=== PATIENT | female | born 1940 | race Caucasian/White ===

== ENCOUNTER → 2016-09-27 | Outpatient (CLI) | payer MEDICARE, OTHER ==
--- NOTE | 2016-09-27 08:07 | US ---
EXAMINATION TYPE: US abdomen complete DATE OF EXAM: 09/27/2016 COMPARISON: Previous study dated 07/09/2014. CLINICAL HISTORY: Abnormal levels of other serum enzymes R74.8. hx of renal cysts. Hx of GB removal, doesn't remember when. EXAM MEASUREMENTS: Liver Length: 11.2 cm CHD: 0.5 cm Spleen: 8.8 cm Right Kidney: 9.8 x 4.2 x 4.4 cm Left Kidney: 8.9 x 3.7 x 4.5 cm Pancreas: Echogenic. Main pancreatic duct = 2.4 mm. Tail not well seen due to overlying bowel gas. Liver: Heterogenous. Right lobe hypoechoic lesion = 3.8 x 3.7 x 3.2 cm. Gallbladder: Surgically absent Evidence for sonographic Barcenas's sign: neg CHD: wnl Spleen: wnl Right Kidney: Two cystic lesions seen. 1- septated/lateral = 2.7 x 2.3 x 2.8 cm. 2- simple/medial = 3.5 x 3.2 x 2.2 cm Left Kidney: two simple appearing cystic lesions seen. 1- mid/medial = 2.0 x 2.2 x 2.1 cm. 2- mid/up per = 1.3 x 1.5 x 1.8 cm. Upper IVC: wnl Abd Aorta: no AAA seen Pancreas is poorly visualized. The pancreatic duct within normal limits in size. The liver is normal in size but slightly heterogenous. There is an irregular, heterogenous, 3.8 x 3.2 x 3.7 cm lesion in the right lobe of the liver. This was not present on the previous study. The gallbladder is been removed. The distal common hepatic duct measures 5 mm. The spleen is normal in size. There are increasing cystic changes in both kidneys. The cyst however, appear simply cystic. Visualized portions of aorta and IVC are normal. IMPRESSION: 1. Suspicious, 3.8 cm lesion in the right lobe of the liver. This is suspicious for hepatocellular ca rcinoma. Further imaging with CT or MR would BE suggested. 2. Increasing cystic change within both kidneys.
== END ==
LOC: RADUSWWP 06:55
PROVIDERS: ATTEND Family Medicine
DX: N28.1 Cyst of kidney, acquired (principal)
CPT/HCPCS: 76700

== ENCOUNTER → 2016-10-06 | Outpatient (CLI) | payer MEDICARE, OTHER ==
[2016-10-06 15:08] LABS: Blood Urea Nitrogen 12 mg/dL (7-17); Non-African American GFR(MDRD) >60 (>60 ml/min/1.73 sqM)
== END | disposition home or self-care (01) ==
LOC: LABWHC1 14:23
PROVIDERS: ATTEND Physician Assistant Medical
DX: R79.89 Other specified abnormal findings of blood chemistry (principal)
CPT/HCPCS: 36415; 82565; 84520

== ENCOUNTER 2016-10-08 20:10 | Emergency (ER) | payer MEDICARE, OTHER ==
--- NOTE | 2016-10-08 22:08 | ED ---
Abdominal Pain HPI - General Chief Complaint: Abdominal Pain Stated Complaint: Rt side pain Time Seen by Provider: 10/08/16 21:52 Source: patient Mode of arrival: wheelchair Limitations: no limitations - History of Present Illness Initial Comments: This patient is a 76-year-old woman who presents to be evaluate for right upper quadrant pain that has been going on since approximately one or 2 PM yesterday. The patient states the pain initially was intermittent and sharp, though has been constant today. She denies finding any relieving factors other than when she takes her Dexter that she has for other pain. She states that is a little bit worse if she presses on her abdomen certain movements. The patient denies any change in bowel movements or urination states that both of these were normal today. She has not had nausea or vomiting. Patient does note that she had been scheduled to have CAT scan last week for having "abnormal enzymes and fluid around the liver." She states that she had not been having these pains when that issue was found MD Complaint: abdominal pain Onset/Timin -: hour(s) Location: RUQ Migration to: no migration Severity: moderate Quality: cramping, stabbing Consistency: intermittent Improves With: nothing Worsens With: nothing Associated Symptoms: denies other symptoms - Related Data Allergies Allergy/AdvReac Type Severity Reaction Status Date / Time Iodinated Contrast- Oral and Allergy Unknown Verified 10/08/16 20:33 IV Dye Review of Systems ROS Statement: Those systems with pertinent positive or pertinent negative responses have been documented in the HPI. ROS Other: All systems not noted in ROS Statement are negative. Constitutional: Denies: fever, chills Respiratory: Reports: cough (Chronic). Denies: dyspnea Cardiovascular: Denies: chest pain, palpitations, orthopnea, syncope Gastrointestinal: Reports: as per HPI, abdominal pain. Denies: nausea, vomiting , diarrhea, constipation Genitourinary: Denies: dysuria, frequency, hematuria Musculoskeletal: Denies: back pain Skin: Denies: rash Neurological: Denies: headache, weakness, numbness Past Medical History Past Medical History: Cancer Additional Past Medical History / Comment(s): lung History of Any Multi-Drug Resistant Organisms: None Reported Past Surgical History: Back Surgery, Joint Replacement, Orthopedic Surgery Past Psychological History: No Psychological Hx Reported Smoking Status: Former smoker Past Alcohol Use History: Rare Past Drug Use History: None Reported General Exam Limitations: no limitations General appearance: alert, in no apparent distress Head exam: Present: atraumatic, normocephalic Eye exam: Present: normal appearance. Absent: scleral icterus, conjunctival injection Respiratory exam: Present: wheezes (Trace expiratory wheeze). Absent: respiratory distress, rales, rhonchi, stridor, chest wall tenderness Cardiovascular Exam: Present: regular rate, normal rhythm, normal heart sounds. Absent: systolic murmur, diastolic murmur, rubs, gallop GI/Abdominal exam: Present: soft, tenderness (Right upper quadrant, mild tenderness), normal bowel sounds. Absent: distended, guarding, rebound, rigid, mass, pulsatile mass, hernia Extremities exam: Present: normal inspection, normal capillary refill. Absent: pedal edema, calf tenderness Back exam: Present: normal inspection. Absent: CVA tenderness (R), CVA tenderness (L) Neurological exam: Present: alert Skin exam: Present: warm, dry, intact, normal color. Absent: rash Course Vital Signs 10/08/16 10/08/16 10/09/16 20:28 23:03 01:15 Temperature 98.2 F 98.1 F 97.4 F L Pulse Rate 80 75 87 Respiratory 18 18 16 Rate Blood Pressure 160/78 193/83 163/79 O2 Sat by Pulse 93 L 96 95 Oximetry 10/09/16 02:30 Temperature 97.5 F L Pulse Rate 74 Respiratory 15 Rate Blood Pressure 159/65 O2 Sat by Pulse 95 Oximetry Medical Decision Making - Lab Data Result diagrams: 10/08/16 22:05 10/08/16 22:05 Lab Results 10/08/16 10/08/16 10/08/16 Range/Units 22:05 22:05 22:05 WBC 7.1 (3.8-10.6) k/uL RBC 4.35 (3.80-5.40) m/uL Hgb 14.6 (11.4-16.0) gm/dL Hct 43.8 (34.0-46.0) % MCV 100.9 H (80.0-100.0) fL MCH 33.6 (25.0-35.0) pg MCHC 33.4 (31.0-37.0) g/dL RDW 13.9 (11.5-15.5) % Plt Count 171 (150-450) k/uL Neutrophils % 58 % Lymphocytes % 29 % Monocytes % 7 % Eosinophils % 4 % Basophils % 1 % Neutrophils # 4.1 (1.3-7.7) k/uL Lymphocytes # 2.1 (1.0-4.8) k/uL Monocytes # 0.5 (0-1.0) k/uL Eosinophils # 0.3 (0-0.7) k/uL Basophils # 0.0 (0-0.2) k/uL Macrocytosis Slight Sodium 138 (137-145) mmol/L Potassium 4.1 (3.5-5.1) mmol/L Chloride 105 (98-107) mmol/L Carbon Dioxide 23 (22-30) mmol/L Anion Gap 10 mmol/L BUN 17 (7-17) mg/dL Creatinine 0.90 (0.52-1.04) mg/dL Est GFR (MDRD) Af Amer >60 (>60 ml/min/1.73 sqM) Est GFR (MDRD) Non-Af >60 (>60 ml/min/1.73 sqM) Glucose 98 (74-99) mg/dL Calcium 10.7 H (8.4-10.2) mg/dL Total Bilirubin 1.3 (0.2-1.3) mg/dL AST 55 H (14-36) U/L ALT 37 (9-52) U/L Alkaline Phosphatase 314 H (38-126) U/L Total Protein 7.5 (6.3-8.2) g/dL Albumin 3.6 (3.5-5.0) g/dL Amylase 97 (30-110) U/L Lipase 95 (23-300) U/L Urine Color Yellow Urine Appearance Cloudy H (Clear) Urine pH 5.5 (5.0-8.0) Ur Specific [place] 1.016 (1.001-1.035) Urine Protein Negative (Negative) Urine Glucose (UA) Negative (Negative) Urine Ketones Negative (Negative) Urine Blood Negative (Negative) Urine Nitrite Negative (Negative) Urine Bilirubin Negative (Negative) Urine Urobilinogen <2.0 (<2.0) mg/dL Ur Leukocyte Esterase Small H (Negative) Urine RBC 2 (0-5) /hpf Urine WBC 10 H (0-5) /hpf Ur Squamous Epith Cells 6 H (0-4) /hpf Urine Bacteria Rare H (None) /hpf Hyaline Casts 1 (0-2) /lpf Urine Mucus Rare H (None) /hpf Disposition Clinical Impression: Abdominal pain Disposition: HOME SELF-CARE Condition: Fair Instructions: Abdominal Pain (ED) Additional Instructions: As we discussed, follow-up with your physician to have further study of the liver. Return if there is any worsening of the symptoms. Referrals: Eloisa Hinojosa III, MD [Primary Care Provider] - 1-2 days
[2016-10-08 22:32] LABS: Basophils % (A) 1 %; CH 33.8; CHCM 33.7; Eosinophils # (A) 0.3 k/uL (0-0.7); Eosinophils % (A) 4 %; HCT 43.8 % (34.0-46.0); HDW 2.58; HGB 14.6 gm/dL (11.4-16.0); Luc # (Auto) 0.17; Luc % (Auto) 2; Lymphocytes # (A) 2.1 k/uL (1.0-4.8); Lymphocytes % (A) 29 %; MCH 33.6 pg (25.0-35.0); MCHC 33.4 g/dL (31.0-37.0); MCV 100.9 fL (80.0-100.0); Macrocytosis Slight; Mean Platelet Volume 8.3; Monocytes # (A) 0.5 k/uL (0-1.0); Monocytes % (A) 7 %; Neutrophils # (A) 4.1 k/uL (1.3-7.7); Neutrophils % (A) 58 %; RBC 4.35 m/uL (3.80-5.40); RDW 13.9 % (11.5-15.5); WBC 7.1 k/uL (3.8-10.6); WBC (Perox) 6.98
[2016-10-08 22:35] LABS: Appearance,Urine Cloudy (Clear); Bacteria,Urine Rare /hpf; Bilirubin,Urine Negative (Negative); Glucose,Urine (UA) Negative (Negative); Ketones,Urine Negative (Negative); Leukocyte Esterase,Urine Small (Negative); Mucus,Urine Rare /hpf; Nitrite,Urine Negative (Negative); PH, Urine 5.5 (5.0-8.0); Particle Count 4267; Protein,Urine Negative (Negative); RBC,Urine 2 /hpf (0-5); Specific Gravity,Urine 1.016 (1.001-1.035); Squamous Epithelial Cell,Urine 6 /hpf (0-4); UA Billing (MACRO vs. MICRO) MICRO; Urobilinogen,Urine <2.0 mg/dL (<2.0); WBC,Urine 10 /hpf (0-5)
[2016-10-08 22:37] LABS: ALT 37 U/L (9-52); AST 55 U/L (14-36); Alkaline Phosphatase 314 U/L (38-126); Amylase 97 U/L (30-110); Anion Gap 10 mmol/L; Blood Urea Nitrogen 17 mg/dL (7-17); Calcium 10.7 mg/dL (8.4-10.2); Carbon Dioxide 23 mmol/L (22-30); Chloride 105 mmol/L (98-107); Glucose 98 mg/dL (74-99); Non-African American GFR(MDRD) >60 (>60 ml/min/1.73 sqM); Potassium 4.1 mmol/L (3.5-5.1); Sodium 138 mmol/L (137-145); Total Bilirubin 1.3 mg/dL (0.2-1.3); Total Protein 7.5 g/dL (6.3-8.2)
[2016-10-09] MEDS ORDERED: RX INFO: IV CONTRAST WAS GIVEN 1 EACH MISC MISCELLANE PRN (00:17)
[2016-10-09] MEDS ORDERED: FAMOTIDINE 20 MG/2 ML VIAL IV STA (00:18)
[2016-10-09] MEDS ORDERED: diphenhydrAMINE 50 MG/ML 1 ML VIAL IVP STA (00:18)
[2016-10-09] MEDS ORDERED: methylPREDNISolone SOD SUCCI 125 MG/2 ML VIAL IV STA (00:18)
[2016-10-09] MEDS ORDERED: MORPHINE SULFATE 4 MG/ML SYRINGE IV STA (00:28)
--- NOTE | 2016-10-09 02:14 | CT ---
EXAM: CT Abdomen and Pelvis With Intravenous Contrast CLINICAL HISTORY: Reason: Pain, right lower quadrant TECHNIQUE: Axial computed tomography images of the abdomen and pelvis with intravenous contrast. CTDI is mGy and DLP is 703.40 mGy-cm. This CT exam was performed using one or more of the following dose reduction techniques: automated exposure control, adjustment of the mA and/or kV according to patient size, and/or use of iterative reconstruction technique. COMPARISON: 07/13/14 FINDINGS: No evidence for appendicitis. Emphysematous changes lung bases. Suspect postsurgical changes, as on prior on the right. Suspect some increased pleural thickening on the right. Atelectasis superimposed upon chronic lung findings. Suspect cirrhotic morphology to liver. Multiple liver masses suggested. Recommend dedicated liver mass CT and/or MRI follow-up. No splenomegaly though there are varices present. Cholecystectomy. No evidence for acute pancreatitis. Renal cysts. No bowel obstruction. Atherosclerotic changes. Degenerative changes osseous structures and postop changes spine. IMPRESSION: Suspect cirrhotic morphology to liver. Multiple liver masses suggested. Incompletely characterized. Recommend dedicated liver mass CT and/or MRI follow-up. Suspect increased pleural thickening at right lung base. No evidence for appendicitis. Other findings, as above.
[2016-10-09 02:32] VITALS: BP 159/65; PULSE 74; RESP 15; TEMP 97.5
== END 2016-10-09 02:36 | disposition home or self-care (01) ==
LOC: EC 20:10
DX: R10.11 Right upper quadrant pain (principal); Z85.9 Personal history of malignant neoplasm, unspecified; Z87.891 Personal history of nicotine dependence; Z91.041 Radiographic dye allergy status
CPT/HCPCS: 99284; 96374; 96375 ×3; 36415; 80053; 82150; 83690; 85025; 81001; 74177; J2270; J1200; J2930; Q9967

== ENCOUNTER 2016-11-24 11:07 | Day surgery (SDC) | payer MEDICARE, OTHER ==
[2016-11-23 10:34] VITALS: BMI 23.9
[~2016-11-24 11:07] MED LIST: DEXAMETHASONE SOD PHOSPHATE 10 MG/ML 1 ML VIAL IV ONE; HEPARIN SODIUM,PORCINE 5,000 UNIT/ML 1 ML VIAL SQ ONE; HYDROmorphone 1 MG/ML 1 ML SYRINGE IVP PRN; LACTATED RINGERS 1,000 ML IV SCH; MIDAZOLAM 2 MG/2 ML VIAL IV PRN; ONDANSETRON 4 MG/2 ML VIAL IVP ONE; Pre Op ABX Message 1 EACH MISC MISCELLANE ONE
[2016-11-24] MEDS ORDERED: LIDOCAINE 1% 20 ML VIAL (10MG/ML) FOR IV START INTRADERMA ONE (12:39)
--- NOTE | 2016-11-24 12:49 | P.GSHP ---
History of Present Illness H&P Date: 11/24/16 Chief Complaint: History of lung cancer This is a 76-year-old female who presents today for Port-A-Cath insertion. Patient has a history of lung cancer. Past Medical History Past Medical History: Cancer, GERD/Reflux Additional Past Medical History / Comment(s): lung ca, wears O2 at 2l at HS, hx of diverticulosis, History of Any Multi-Drug Resistant Organisms: None Reported Past Surgical History: Back Surgery, Joint Replacement, Orthopedic Surgery Additional Past Surgical History / Comment(s): has had sx on neck and lower back , rt knee replaced, left knee scope, left shoulder sx Past Anesthesia/Blood Transfusion Reactions: No Reported Reaction Past Psychological History: No Psychological Hx Reported Smoking Status: Former smoker Past Alcohol Use History: Rare Additional Past Alcohol Use History / Comment(s): quit smoking in 2014, 1 and 1/ - 2 ppd, started smoking at age 8 Past Drug Use History: None Reported - Past Family History Mother Family Medical History: Cancer Brother(s) Family Medical History: Cancer Additional Family Medical History / Comment(s): x2 Medications and Allergies Home Medications Medication Instructions Recorded Confirmed Type ALPRAZolam [Xanax] 0.5 mg PO Q8HR 11/23/16 11/24/16 History Albuterol Nebulized [Ventolin 2.5 mg INHALATION Q6H PRN 11/23/16 11/24/16 History Nebulized] Cranberry 1 tab PO DAILY 11/23/16 History Fluticasone/Salmeterol [Advair 1 inhalation PO BID 11/23/16 11/24/16 History 250-50 Diskus] Lactulose 10 gm PO BID 11/23/16 11/24/16 History Liver Detoxifier 1 tab PO DAILY 11/23/16 History Meclizine [Antivert] 12.5 mg PO Q8HR PRN 11/23/16 11/24/16 History Ranitidine HCl [Zantac] 150 mg PO BID 11/23/16 11/24/16 History Allergies Allergy/AdvReac Type Severity Reaction Status Date / Time Iodinated Contrast- Oral and Allergy Diarrhea Verified 11/23/16 10:23 IV Dye Surgical - Exam Vital Signs Temp Pulse Resp BP Pulse Ox 97.8 F 97 16 131/73 97 11/24/16 12:11 11/24/16 12:11 11/24/16 12:11 11/24/16 12:11 11/24/16 12:11 - General well developed, well nourished, no distress - Eyes PERRL - ENT normal pinna - Neck no masses - Respiratory normal expansion - Cardiovascular Rhythm: regular - Abdomen Abdomen: soft, non tender Assessment and Plan Plan: History of lung cancer. We'll perform Port-A-Cath insertion
[2016-11-24] MEDS ORDERED: MIDAZOLAM 2 MG/2 ML VIAL ONE (15:08)
[2016-11-24] MEDS ORDERED: fentaNYL (PF) 50 MCG/ML 2 ML AMP ONE (15:08)
[2016-11-24] MEDS ORDERED: PROPOFOL 10 MG/ML 20 ML VIAL IV ONE (15:08)
[2016-11-24] MEDS ORDERED: LIDOCAINE 1% INJ 10MG/ML (20 ML MDV) ONE (15:08)
[2016-11-24] MEDS ORDERED: SODIUM CHLORIDE 0.9% 100 ML with ceFAZolin 2,000 MG IV ONE ×2 (15:08)
[2016-11-24] MEDS ORDERED: HEPARIN SODIUM,PORCINE 100 UNIT/ML 5 ML VIAL IV ONE (15:27)
[2016-11-24] MEDS ORDERED: BUPIVACAINE (PF) 0.25% 30 ML VIAL SQ ONE ×2 (15:27)
--- NOTE | 2016-11-24 15:45 | P.OP ---
Date of Procedure: 11/24/16 Preoperative Diagnosis: Lung cancer Postoperative Diagnosis: Lung cancer Procedure(s) Performed: Insertion of Port-A-Cath Anesthesia: MAC Surgeon: Wagner Mckeon Estimated Blood Loss (ml): 5 Pathology: none sent Condition: stable Disposition: PACU Description of Procedure: PROCEDURE: The patient was placed on the operating table in the supine position. She received MAC anesthetic. The chest was prepped and draped in the usual sterile fashion. The skin underneath the right clavicle was anesthetized with 1% Xylocaine and using Seldinger technique, the right subclavian vein was cannulized. The wire was placed through the needle and positioned under fluoroscopy. Next, the needle was removed and the port site was anesthetized with 1% Xylocaine. Skin was incised with #15 blade and port pocket was made using blunt and sharp dissection. Following this the catheter was attached to the sport and the port was flushed. The port was positioned into the pocket site and was secured with 3-0 Vicryl suture. The catheter was then brought out through the wire site and then the dilator sheath was placed over the wire and the dilator and the wire were removed. The catheter was placed through the sheath and the sheath was removed. The port was flushed with hep-lock solution. Skin was closed with interrupted 3-0 Vicryl sutures. Steri-Strips were applied. The patient tolerated the procedure well. The patient was sent to recovery room for chest x -ray after the procedure.
[2016-11-24 15:53] VITALS: TEMP 98.8
--- NOTE | 2016-11-24 16:19 | XR ---
EXAMINATION TYPE: XR chest 1V DATE OF EXAM: 11/24/2016 COMPARISON: NONE HISTORY: Confirm line placement TECHNIQUE: Single frontal view of the chest is obtained. FINDINGS: Right-sided MediPort is seen terminating in the superior vena cava at its distal aspect. R ight apical lucency suggest underlying emphysematous changes. Cardiac silhouette is upper limits of n ormal size. Mediastinal clips are seen in the right para midline. Partial visualization of cervical f usion device. Reversed left humeral arthroplasty is noted. Blunting of the right costophrenic angle m ay relate to trace pleural effusion or chronic pleural thickening/scarring. Left lung remains clear. Right apical pleural thickening is seen with no discrete pneumothorax. Prior old fracture deformity s een of the lateral mid right rib. IMPRESSION: 1. Right-sided Mediport with its distal tip terminating in the superior vena cava. Right pleural thic kening is seen with no discrete pneumothorax. 2. Trace right pleural effusion versus chronic dural thickening/scarring. 3. No focal consolidation. Bullous emphysematous changes most pronounced in the the right lung.
[2016-11-24 16:23] VITALS: RESP 16
[2016-11-24 16:59] VITALS: BP 144/68; PULSE 86
--- NOTE | 2016-11-27 11:28 | FL ---
EXAMINATION TYPE: FL guided central line placemt DATE OF EXAM: 11/24/2016 CLINICAL HISTORY: Port-A-Cath placement TECHNIQUE: Fluoroscopy. COMPARISON: None. FINDINGS: Fluoroscopic guidance was provided during Port-A-Cath insertion procedure performed by Dr. Mckeon. A total of 4 seconds of fluoroscopic time was utilized during the procedure and 0 spot in traoperative images are acquired or saved to PACS. IMPRESSION: As Above.
== END 2016-11-24 17:07 | disposition home or self-care (01) ==
LOC: OR 11:07
PROVIDERS: ATTEND Surgery
DX: C34.90 Malignant neoplasm of unspecified part of unspecified bronchus or lung (principal); J43.9 Emphysema, unspecified; K21.9 Gastro-esophageal reflux disease without esophagitis; Z87.891 Personal history of nicotine dependence; Z79.899 Other long term (current) drug therapy; Z91.041 Radiographic dye allergy status
CPT/HCPCS: 77001; 71010; 36561; 76937; C1788; J2250; J1644; J1642; J1100; J2405; J2001; J3010; J0690; J2704

== ENCOUNTER 2016-12-12 19:51 | Inpatient (IN) | payer MEDICARE, OTHER ==
[2016-12-12] MEDS ORDERED: SODIUM CHLORIDE 0.9% 500 ML IV STA (20:42)
[2016-12-12] MEDS ORDERED: LIDOCAINE/EPINEPHR/TETRACAINE 5 ML BOTTLE TOPICAL ONE (20:43)
--- NOTE | 2016-12-12 20:47 | ED ---
General Adult HPI - General Chief complaint: Fever Stated complaint: Chemo pt fever/nosebleed Time Seen by Provider: 12/12/16 20:34 Source: patient Mode of arrival: ambulatory Limitations: no limitations - History of Present Illness Initial comments: This 76-year-old white female presents with family with the complaint of weakness and fever. She does have a history of lung cancer and is undergoing chemotherapy. Her last chemotherapy was approximately a week ago. She developed a fever today with a T-max of 100.5. She is felt very weak. She has had intermittent nosebleeds for the past several hours. She states that she picked some dry skin on her right nare and now she cannot seem to get the bleeding to stop. She has been fighting the lung cancer for the past 3 years. She did have surgery on her right long at one point. She denies any shortness of breath or chest pain but has had a slight cough with only clear production. She denies any urinary symptoms. No other complaints or modifying factors. She apparently does have a history of liver disease as well with previous elevated ammonia levels. - Related Data Home Medications Medication Instructions Recorded Confirmed ALPRAZolam [Xanax] 1 mg PO TID PRN 11/23/16 12/12/16 Fluticasone/Salmeterol [Advair 1 puff INHALATION RT-BID 11/23/16 12/12/16 250-50 Diskus] Lactulose 10 gm PO BID 11/23/16 12/12/16 Liver Detoxifier 1 tab PO TID 11/23/16 12/12/16 Meclizine [Antivert] 12.5 mg PO BID 11/23/16 12/12/16 Ranitidine HCl [Zantac] 150 mg PO BID 11/23/16 12/12/16 Budesonide [Pulmicort] 0.5 mg INHALATION RT-BID 12/12/16 12/12/16 Cranberry Fruit Extract [Cranberry] 500 mg PO DAILY 12/12/16 12/12/16 HYDROcodone/APAP 10-325MG [Mosinee 1 tab PO TID PRN 12/12/16 12/12/16 10-325] Ipratropium-Albuterol Nebulize 3 ml INHALATION RT-QID PRN 12/12/16 12/12/16 [Duoneb 0.5 mg-3 mg/3 ml Soln] Ipratropium/Albuterol Sulfate 1 puff INHALATION RT-QID PRN 12/12/16 12/12/16 [Combivent Respimat Inhaler] Loratadine [Claritin] 10 mg PO DAILY 12/12/16 12/12/16 Meclizine [Antivert] 12.5 mg PO DAILY PRN 12/12/16 12/12/16 Prochlorperazine [Compazine] 5 mg PO Q6HR PRN 12/12/16 12/12/16 Allergies Allergy/AdvReac Type Severity Reaction Status Date / Time Iodinated Contrast- Oral and Allergy Anaphylaxis Verified 12/12/16 21:01 IV Dye Review of Systems ROS Statement: Those systems with pertinent positive or pertinent negative responses have been documented in the HPI. ROS Other: All systems not noted in ROS Statement are negative. Past Medical History Past Medical History: Cancer, GERD/Reflux Additional Past Medical History / Comment(s): lung ca, wears O2 at 2l at HS, hx of diverticulosis, History of Any Multi-Drug Resistant Organisms: None Reported Past Surgical History: Back Surgery, Joint Replacement, Orthopedic Surgery Additional Past Surgical History / Comment(s): has had sx on neck and lower back , rt knee replaced, left knee scope, left shoulder sx Past Anesthesia/Blood Transfusion Reactions: No Reported Reaction Past Psychological History: No Psychological Hx Reported Smoking Status: Former smoker Past Alcohol Use History: Rare Past Drug Use History: None Reported - Past Family History Mother Family Medical History: Cancer Brother(s) Family Medical History: Cancer Additional Family Medical History / Comment(s): x2 General Exam - General Exam Comments Initial Comments: GENERAL: The patient is well nourished and well hydrated. VITAL SIGNS: Heart rate, blood pressure, respiratory rate reviewed as recorded in nurse's notes. EYES: Pupils are round and reactive. Extraocular movements are intact. No conjunctival / lid redness or swelling. ENT: No external evidence of injury, swelling, or ecchymosis. Airway is patent. Throat is clear. There is a nose clamp currently in place with no current bleeding. NECK: Nontender. No swelling or evidence of injury. No subcutaneous emphysema. Trachea is midline. No thyroid mass. HEART: Regular rate and rhythm. Good peripheral pulses. LUNGS/CHEST: Breath sounds clear and equal bilaterally. No rales, rhonchi, or wheezes. No ecchymosis, subcutaneous emphysema, or tenderness. ABDOMEN: Abdomen soft without tenderness. No palpable masses or organomegaly. No peritoneal signs. No abdominal wall swelling or ecchymosis. EXTREMITIES: No extremity tenderness. Normal muscle tone and function. No thoracolumbar tenderness. NEUROLOGIC: Sensation is grossly intact. Cranial nerve exam reveals face is symmetrical, tongue is midline, speech is clear. SKIN: No abrasions or ecchymosis is noted. No induration or masses noted. PSYCHIATRIC: Alert and oriented. Appropriate behavior and judgment. Limitations: no limitations Course Vital Signs 12/12/16 12/12/16 12/12/16 20:21 21:42 22:37 Temperature 99.4 F 98.9 F Pulse Rate 111 H 98 109 H Respiratory 18 20 22 Rate Blood Pressure 138/65 144/64 130/58 O2 Sat by Pulse 96 94 L 98 Oximetry Medical Decision Making - Medical Decision Making The patient is seen and examined. All diagnostics are reviewed. The EKG shows a normal sinus rhythm at a rate of 97. There is no acute ST-T wave changes identified. The OK interval is 140, QRS duration is 88, and the QTC intervals 431. The patient's laboratories reviewed. Appears that her platelets are severely low at 4. Her previous platelets on 10/08/2016 were 171. Her hemoglobin was previously 14.6 on 10/08/2016 and now it is 8.0. It is felt that her blood counts her breathing significantly infected by her chemotherapy. Remainder of laboratories also reviewed. The chest x-ray does show 2 areas of infiltrate in the right apical and hilar regions. The case is discussed with Dr. Ricks and he would like the patient placed on cefepime. This is initiated. Her nasal passages are packed LET on cotton balls. These are removed after 10 minutes and there appears to be some mild oozing from her bilateral Kim box plexus. These areas are cauterized with silver nitrate and no further bleeding is noted. It is felt as though she would benefit from admission to the hospital for further treatment of her conditions. She will require platelet transfusion as well. Case is discussed with Dr. Shaver from hematology/oncology and he is agreeable with transfusion of platelets. - Lab Data Result diagrams: 12/12/16 21:28 12/12/16 21:28 Lab Results 12/12/16 12/12/16 12/12/16 Range/Units 21:28 21:28 21:28 WBC 7.9 (3.8-10.6) k/uL RBC 2.35 L (3.80-5.40) m/uL Hgb 8.0 L D (11.4-16.0) gm/dL Hct 24.0 L (34.0-46.0) % MCV 102.1 H (80.0-100.0) fL MCH 34.1 (25.0-35.0) pg MCHC 33.4 (31.0-37.0) g/dL RDW 16.1 H (11.5-15.5) % Plt Count 4 L* D (150-450) k/uL Neutrophils % (Manual) 77 % Band Neutrophils % 14 % Lymphocytes % (Manual) 9 % Nucleated RBCs 0 (0-0) /100 WBC Manual Slide Review Performed Dohle Bodies Present Anisocytosis Slight Anisocytosis (manual) Present Macrocytosis Slight Spherocytes Present PT (9.0-12.0) sec INR (<1.2) APTT (22.0-30.0) sec Sodium 131 L (137-145) mmol/L Potassium 3.6 (3.5-5.1) mmol/L Chloride 104 (98-107) mmol/L Carbon Dioxide 23 (22-30) mmol/L Anion Gap 4 mmol/L BUN 17 (7-17) mg/dL Creatinine 0.61 (0.52-1.04) mg/dL Est GFR (MDRD) Af Amer >60 (>60 ml/min/1.73 sqM) Est GFR (MDRD) Non-Af >60 (>60 ml/min/1.73 sqM) Glucose 104 H (74-99) mg/dL Calcium 8.3 L (8.4-10.2) mg/dL Phosphorus 2.5 (2.5-4.5) mg/dL Magnesium 1.6 (1.6-2.3) mg/dL Total Bilirubin 2.1 H (0.2-1.3) mg/dL AST 46 H (14-36) U/L ALT 41 (9-52) U/L Alkaline Phosphatase 236 H (38-126) U/L Total Creatine Kinase <20 L (30-135) U/L CK-MB (CK-2) 0.4 (0.0-2.4) ng/mL CK-MB (CK-2) Rel Index Troponin I <0.012 (0.000-0.034) ng/mL Total Protein 5.3 L (6.3-8.2) g/dL Albumin 2.3 L (3.5-5.0) g/dL TSH 1.710 (0.465-4.680) mIU/L 12/12/16 Range/Units 21:28 WBC (3.8-10.6) k/uL RBC (3.80-5.40) m/uL Hgb (11.4-16.0) gm/dL Hct (34.0-46.0) % MCV (80.0-100.0) fL MCH (25.0-35.0) pg MCHC (31.0-37.0) g/dL RDW (11.5-15.5) % Plt Count (150-450) k/uL Neutrophils % (Manual) % Band Neutrophils % % Lymphocytes % (Manual) % Nucleated RBCs (0-0) /100 WBC Manual Slide Review Dohle Bodies Anisocytosis Anisocytosis (manual) Macrocytosis Spherocytes PT 12.1 H (9.0-12.0) sec INR 1.2 H (<1.2) APTT 25.9 (22.0-30.0) sec Sodium (137-145) mmol/L Potassium (3.5-5.1) mmol/L Chloride (98-107) mmol/L Carbon Dioxide (22-30) mmol/L Anion Gap mmol/L BUN (7-17) mg/dL Creatinine (0.52-1.04) mg/dL Est GFR (MDRD) Af Amer (>60 ml/min/1.73 sqM) Est GFR (MDRD) Non-Af (>60 ml/min/1.73 sqM) Glucose (74-99) mg/dL Calcium (8.4-10.2) mg/dL Phosphorus (2.5-4.5) mg/dL Magnesium (1.6-2.3) mg/dL Total Bilirubin (0.2-1.3) mg/dL AST (14-36) U/L ALT (9-52) U/L Alkaline Phosphatase (38-126) U/L Total Creatine Kinase (30-135) U/L CK-MB (CK-2) (0.0-2.4) ng/mL CK-MB (CK-2) Rel Index Troponin I (0.000-0.034) ng/mL Total Protein (6.3-8.2) g/dL Albumin (3.5-5.0) g/dL TSH (0.465-4.680) mIU/L Disposition Clinical Impression: Weakness, Lung cancer, Fever, Sinus tachycardia, Thrombocytopenia, Anemia, Pneumonia, Anterior epistaxis Disposition: ADMITTED IP TO THIS [facility] Condition: Fair Time of Disposition: 22:47 Decision Date: 12/12/16 Decision Time: 22:48
[2016-12-12] MEDS ORDERED: PROCHLORPERAZINE 5 MG TAB PO STA (21:26)
[2016-12-12] MEDS ORDERED: ONDANSETRON 4 MG/2 ML VIAL IVP STA (21:26)
[2016-12-12] MEDS: SODIUM CHLORIDE 0.9% 1,000 ML IV STA (21:30)
[2016-12-12] MEDS ORDERED: LACTULOSE 20 GM/30 ML CUP PO ONE (21:30)
[2016-12-12] MEDS ORDERED: SILVER NITRATE APPLICATOR 1 EACH STICK..EA. TOPICAL STA (21:35)
[2016-12-12 21:52] LABS: Anisocytosis Slight; CH 32.6; CHCM 32.1; MCH 34.1 pg (25.0-35.0); MCHC 33.4 g/dL (31.0-37.0); MCV 102.1 fL (80.0-100.0); Macrocytosis Slight; Mean Platelet Volume 10.6; RBC 2.35 m/uL (3.80-5.40); RDW 16.1 % (11.5-15.5); WBC 7.9 k/uL (3.8-10.6); WBC (Perox) 8.03
[2016-12-12 21:54] LABS: ALT 41 U/L (9-52); AST 46 U/L (14-36); Alkaline Phosphatase 236 U/L (38-126); Anion Gap 4 mmol/L; Blood Urea Nitrogen 17 mg/dL (7-17); Calcium 8.3 mg/dL (8.4-10.2); Carbon Dioxide 23 mmol/L (22-30); Chloride 104 mmol/L (98-107); Glucose 104 mg/dL (74-99); Magnesium 1.6 mg/dL (1.6-2.3); Non-African American GFR(MDRD) >60 (>60 ml/min/1.73 sqM); Phosphorus 2.5 mg/dL (2.5-4.5); Potassium 3.6 mmol/L (3.5-5.1); Sodium 131 mmol/L (137-145); Total Bilirubin 2.1 mg/dL (0.2-1.3); Total Protein 5.3 g/dL (6.3-8.2)
[2016-12-12 21:56] LABS: INR 1.2 (<1.2); Partial Thromboplastin Time 25.9 sec (22.0-30.0); Prothrombin Time 12.1 sec (9.0-12.0)
[2016-12-12 22:04] LABS: Creatine Kinase <20 U/L (30-135)
--- NOTE | 2016-12-12 22:05 | XR ---
EXAMINATION TYPE: XR chest 2V DATE OF EXAM: 12/12/2016 COMPARISON: Chest x-ray November 24, 2016 HISTORY: Weakness and fever TECHNIQUE: Frontal and lateral views of the chest are obtained. FINDINGS: There is redemonstration of surgical hardware left shoulder level. There is anterior fusio n plate in the cervical spine is redemonstrated. There is redemonstration of right subclavian Medipor t catheter. There is persistent cardiomegaly with ectatic thoracic aorta. Right suprahilar surgical c lips are redemonstrated. There is chronic parenchymal change with increasing right upper and hilar op acities. There is suspected stable small right pleural effusion. No pneumothorax is seen bilaterally. IMPRESSION: Chronic parenchymal changes and cardiomegaly with small right pleural effusion all redem onstrated. There is suspected developing right apical and hilar infiltrates.
[2016-12-12] MEDS ORDERED: CEFEPIME 1 GM in SODIUM CHLORIDE 0.9% 50 ML IVPB STA (22:09)
[2016-12-12 22:10] LABS: Add Differential Manual Differential
[2016-12-12 22:16] LABS: Creatine Kinase MB 0.4 ng/mL (0.0-2.4); Troponin I <0.012 ng/mL (0.000-0.034)
[2016-12-12 22:17] LABS: Band Neutrophils % 14 %; Dohle Bodies Present; Manual Review Performed; Nucleated Red Blood Cells 0 /100 WBC (0-0); Total Cells Counted 100
[2016-12-12 22:18] LABS: Spherocytes Present
[2016-12-12] MEDS ORDERED: PNEUMONIA PROTOCOL UTILIZED 1 EACH MISC PO PRN (22:49)
[2016-12-12] MEDS ORDERED: MECLIZINE 12.5 MG TAB PO PRN (22:52)
[2016-12-12] MEDS ORDERED: PROCHLORPERAZINE 5 MG TAB PO PRN (22:52)
[2016-12-12] MEDS ORDERED: IPRATROPIUM-ALBUTEROL 3 ML NEB INHALATION PRN (22:52)
[2016-12-12] MEDS ORDERED: ONDANSETRON 4 MG/2 ML VIAL IVP PRN (22:53)
[2016-12-12] MEDS: HYDROcodone/APAP 10-325MG 1 EACH TAB PO PRN (23:08)
[2016-12-13 04:45] VITALS: BMI 23.6
[2016-12-13] MEDS ORDERED: BUDESONIDE 0.5 MG/2 ML NEBU INHALATION SCH (08:00)
[2016-12-13] MEDS: CEFEPIME 1 GM in SODIUM CHLORIDE 0.9% 50 ML IVPB SCH ×2 (08:22→20:08)
[2016-12-13] MEDS: FAMOTIDINE 20 MG TAB PO SCH ×2 (08:22→20:08)
[2016-12-13] MEDS: LACTULOSE 20 GM/30 ML CUP PO SCH ×2 (08:23→20:57)
[2016-12-13] MEDS: LORATADINE 10 MG TAB PO SCH (08:24)
[2016-12-13] MEDS: MECLIZINE 12.5 MG TAB PO SCH ×2 (08:24→20:08)
[2016-12-13] MEDS: HYDROcodone/APAP 10-325MG 1 EACH TAB PO PRN ×3 (08:24→20:08)
[2016-12-13] MEDS: SODIUM CHLORIDE 0.9% 1,000 ML IV STA (08:31)
[2016-12-13] MEDS: IPRATROPIUM-ALBUTEROL 3 ML NEB INHALATION SCH ×4 (08:50→19:42)
[2016-12-13] MEDS ORDERED: [UNRECOGNIZED DRUG - OTHER] PO SCH (09:00)
[2016-12-13] MEDS ORDERED: NON-FORMULARY DRUG (Cranberry Fruit Extract [Cranberry] 500 MG) PO SCH (09:00)
[2016-12-13 12:27] LABS: Appearance,Urine Clear (Clear); Bacteria,Urine Rare /hpf; Bilirubin,Urine Negative (Negative); Glucose,Urine (UA) Negative (Negative); Ketones,Urine Negative (Negative); Leukocyte Esterase,Urine Negative (Negative); Nitrite,Urine Negative (Negative); PH, Urine 6.5 (5.0-8.0); Particle Count 3953; Protein,Urine Trace (Negative); RBC,Urine 6 /hpf (0-5); Squamous Epithelial Cell,Urine 2 /hpf (0-4); UA Billing (MACRO vs. MICRO) MICRO; Urobilinogen,Urine <2.0 mg/dL (<2.0); WBC,Urine 1 /hpf (0-5)
[2016-12-13] MEDS ORDERED: TEMAZEPAM 15 MG CAP PO PRN (16:57)
[2016-12-13] MEDS ORDERED: HYDROmorphone 0.5 MG/0.5 ML SYRINGE IVP PRN (16:57)
--- NOTE | 2016-12-13 17:23 | P.CONS ---
History of Present Illness - Reason for Consult Consult date: 12/13/16 - History of Present Illness Ms Jenkins is a pleasant WF, who apparently had a routine ( ? screening) imaging study of the chest ( ? Xray /CT) in 07/23, that showed an opacity in the rt lower lobe. This led to a CT scan on 11/04/13, which revealed a 1.6 cm nodule in the superior aspect of the rt lower lobe. Severe emphysema was noted bilaterally. She had a CT scan on 11/15/13, which showed marked uptake with SUV of 16.7 in the RLL mass, as well as a focus in the rt hilar region ( SUV 7.9). The pt was thus referred here for further evaluation and recommendations. She was referred to Dr MITCHELL Anaya ( Pulmonary) and Dr Reese ( CTS). She was felt to be a surgical candidate. She had a stress test and ECHO in the 3rd week of , and surgery 01/12/14. 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 ( T1a , N0) She tolerated surgery well. based on guidelines, adjuvnt chemo was not recommended for her stage. She was seen in the office in 02/22, and continued f/ u with Dr Anaya thereafter. The patient was seen in consultation at [facility] on 2016. Over the last 6-7 weeks, prior to admission, she had been complaining of increasing pain in the right upper abdomen, as well as a right mid back. In addition the family had noted a change in appetite, progressive weakness, as well as periods of confusion. Labs done by her PCP on 09/14/16 showed the elevation of AST at 66 and alkaline phosphatase at 306. Total bilirubin was 1.4. CBC was normal. Ultrasound on 09/27/16 showed slightly heterogenous appearance of the liver with a 3.83.23.7 cm lesion in the right lobe that appeared to be new. This was compared to a prior study from 06/24. She had a CT of the abdomen and pelvis with contrast on 10/09/16, that was suggestive of cirrhotic appearance of the liver with suggestion of multiple liver masses. Study was felt to be incomplete for the liver and dedicated liver CT was suggested. A CT of the liver with 3 phase protocol was done on 10/12/16. This confirmed a number of hypervascular liver lesions, bilaterally. The most prominent was a confluent mass measuring 6.95.65.8 cm with some internal necrotic changes in the right lobe. There was evidence of underlying portal venous hypertension. By this time, the patients pain had increased significantly. She was therefore sent in to the emergency room, and admitted for further management. On evaluation in the hospital, computed tomography scan of the chest was ordered. This showed a new large right infrahilar mass partially encasing the bronchus intermedius and proximal segmental right lower lobe bronchi. This measured 6.254.8 cm. There was also enlargement of the subcarinal node at 1.9 cm and borderline 9 mm superior mediastinal node. Liver lesions were again noted. Computed tomography scan of the brain was negative. Ct in 01/25 had not shown any evidence of recurrence. The patient was somewhat confused in the hospital, but improved with the lactulose (ammonia level was somewhat elevated), and hydration. She had a liver biopsy on 10/13/16 and was subsequently discharged. She was seen back in the office on 10/28/16. Liver biopsy showed a proliferation of bile ducts with acute and chronic inflammation, and formation of residual nodules of hepatic parenchyma. No obvious malignancy was seen. This was felt to be non diagnostic, and a repeat biopsy on the lung was done bronchoscopically by Dr Anaya on 10/23/16. Cytology was negative, but biopsy was positive for squamous cell carcinoma.Her MRI of the liver showed mass like changes but was not definitive for maligancy. She was started on Carbo/Gemzar. Cycle 1 D1 She was then admitted to [facility] for MS changes due to dehydration and possible pneumonia after cycle 1 D1. She improved with hydation and antibiotics, and was discharged. She omitted D8 , and started cycle, completing that on 12/07/16. She did receive Neulasta. she presented to the ER this time, as she has started to bleed from the left nostril, and this was not stopping despite local pressure. In addition she was feeling very weak and felt as if she was about to fall. Over the last 1 -2 days, oral intake had been reduced. In the emergency room platelets were noted to be only 4000. Chest x-ray showed possibility of opacities in the right upper and lower lobes suspiciousfor pneumonia. She was then admitted for further management. Review of Systems Constitutional: Reports fatigue, Reports poor appetite, Reports weakness Eyes: denies blurred vision, denies pain Ears: deny: decreased hearing, ear discharge, earache, tinnitus Ears, nose, mouth and throat: Reports epistaxis Cardiovascular: Reports dyspnea on exertion Respiratory: Reports cough Gastrointestinal: Reports as per HPI, Reports diarrhea (stools are generally loose, due to chronic lactulose use. Also positive for episode of hepatic encephalopathy, controlled with lactulose) Genitourinary: Denies dysuria, Denies hematuria Menstruation: Reports postmenopausal Musculoskeletal: Reports muscle weakness Integumentary: Denies pruritus, Denies rash Neurological: Reports confusion (episodic, associated with hepatic encephalopathy. Usually improves with lactulose), Reports weakness Psychiatric: Reports confusion Endocrine: Reports fatigue, Denies weight change Hematologic/Lymphatic: Reports as per HPI Past Medical History Past Medical History: Cancer, GERD/Reflux Additional Past Medical History / Comment(s): lung ca, wears O2 at 2l at HS, hx of diverticulosis History of Any Multi-Drug Resistant Organisms: None Reported Past Surgical History: Back Surgery, Joint Replacement, Orthopedic Surgery Additional Past Surgical History / Comment(s): has had sx on neck and lower back , rt knee replaced, left knee scope, left shoulder sx Past Anesthesia/Blood Transfusion Reactions: No Reported Reaction Past Psychological History: No Psychological Hx Reported Smoking Status: Former smoker Past Alcohol Use History: Rare Additional Past Alcohol Use History / Comment(s): quit smoking in 2014, 1 and 1/ 2- 2 ppd, started smoking at age 8 Past Drug Use History: None Reported - Past Family History Mother Family Medical History: Cancer Brother(s) Family Medical History: Cancer Additional Family Medical History / Comment(s): x2 Medications and Allergies Home Medications Medication Instructions Recorded Confirmed Type ALPRAZolam [Xanax] 1 mg PO TID PRN 11/23/16 12/12/16 History Fluticasone/Salmeterol [Advair 1 puff INHALATION RT-BID 11/23/16 12/12/16 History 250-50 Diskus] Lactulose 10 gm PO BID 11/23/16 12/12/16 History Liver Detoxifier 1 tab PO TID 11/23/16 12/12/16 History Meclizine [Antivert] 12.5 mg PO BID 11/23/16 12/12/16 History Ranitidine HCl [Zantac] 150 mg PO BID 11/23/16 12/12/16 History Budesonide [Pulmicort] 0.5 mg INHALATION RT-BID 12/12/16 12/12/16 History Cranberry Fruit Extract [Cranberry] 500 mg PO DAILY 12/12/16 12/12/16 History HYDROcodone/APAP 10-325MG [[place] 1 tab PO TID PRN 12/12/16 12/12/16 History 10-325] Ipratropium-Albuterol Nebulize 3 ml INHALATION RT-QID PRN 12/12/16 12/12/16 History [Duoneb 0.5 mg-3 mg/3 ml Soln] Ipratropium/Albuterol Sulfate 1 puff INHALATION RT-QID PRN 12/12/16 12/12/16 History [Combivent Respimat Inhaler] Loratadine [Claritin] 10 mg PO DAILY 12/12/16 12/12/16 History Meclizine [Antivert] 12.5 mg PO DAILY PRN 12/12/16 12/12/16 History Prochlorperazine [Compazine] 5 mg PO Q6HR PRN 12/12/16 12/12/16 History Allergies Allergy/AdvReac Type Severity Reaction Status Date / Time Iodinated Contrast- Oral and Allergy Anaphylaxis Verified 12/12/16 21:01 IV Dye Physical Exam Vitals: Vital Signs Temp Pulse Pulse Resp BP BP Pulse Ox 12/13/16 16:34 98.4 F 101 H 16 116/58 12/13/16 16:22 92 12/13/16 16:10 90 12/13/16 16:04 97.9 F 97 16 134/60 12/13/16 15:54 97.6 F 100 16 122/58 96 12/13/16 15:00 97.9 F 96 16 125/59 96 12/13/16 13:00 98 12/13/16 12:46 94 16 12/13/16 09:12 100 12/13/16 08:50 114 H 16 12/13/16 08:00 97.8 F 99 16 105/53 98 12/13/16 00:46 98.1 F 103 H 16 142/63 98 12/12/16 23:41 97.9 F 114 H 24 128/59 96 12/12/16 23:00 108 H 22 126/62 96 12/12/16 22:37 98.9 F 109 H 22 130/58 98 12/12/16 21:42 98 20 144/64 94 L 12/12/16 20:21 99.4 F 111 H 18 138/65 96 Intake and Output 12/13/16 12/13/16 12/13/16 06:59 14:59 22:59 Intake Total 0 Balance 0 Intake: Blood Product 0 Platelet Pheresis Acda 0 Unit [id number] Other: Voiding Method Toilet Toilet # Voids 3 # Bowel Movements 2 Weight 58.513 kg - Constitutional General appearance: no acute distress - EENT Eyes: EOMI, PERRLA ENT: hearing grossly normal, normal oropharynx - Neck Neck: no lymphadenopathy Thyroid: bilateral: normal size - Respiratory Respiratory: bilateral: CTA - Cardiovascular Rhythm: regular Heart sounds: normal: S1, S2 - Gastrointestinal General gastrointestinal: normal bowel sounds, soft - Integumentary Integumentary: normal - Neurologic Neurologic: CNII-XII intact - Musculoskeletal Musculoskeletal: generalized weakness, strength equal bilaterally - Psychiatric Psychiatric: A&O x's 3, appropriate affect Results CBC & Chem 7: 12/12/16 21:28 12/12/16 21:28 Labs: Abnormal Lab Results - Last 24 Hours (Table) 12/12/16 12/12/16 12/12/16 Range/Units 21:28 21:28 21:28 RBC 2.35 L (3.80-5.40) m/uL Hgb 8.0 L D (11.4-16.0) gm/dL Hct 24.0 L (34.0-46.0) % MCV 102.1 H (80.0-100.0) fL RDW 16.1 H (11.5-15.5) % Plt Count 4 L* D (150-450) k/uL PT (9.0-12.0) sec INR (<1.2) Sodium 131 L (137-145) mmol/L Glucose 104 H (74-99) mg/dL Calcium 8.3 L (8.4-10.2) mg/dL Total Bilirubin 2.1 H (0.2-1.3) mg/dL AST 46 H (14-36) U/L Alkaline Phosphatase 236 H (38-126) U/L Total Creatine Kinase <20 L (30-135) U/L Total Protein 5.3 L (6.3-8.2) g/dL Albumin 2.3 L (3.5-5.0) g/dL Urine Protein (Negative) Urine Blood (Negative) Urine RBC (0-5) /hpf Urine Bacteria (None) /hpf 12/12/16 12/13/16 Range/Units 21:28 11:15 RBC (3.80-5.40) m/uL Hgb (11.4-16.0) gm/dL Hct (34.0-46.0) % MCV (80.0-100.0) fL RDW (11.5-15.5) % Plt Count (150-450) k/uL PT 12.1 H (9.0-12.0) sec INR 1.2 H (<1.2) Sodium (137-145) mmol/L Glucose (74-99) mg/dL Calcium (8.4-10.2) mg/dL Total Bilirubin (0.2-1.3) mg/dL AST (14-36) U/L Alkaline Phosphatase (38-126) U/L Total Creatine Kinase (30-135) U/L Total Protein (6.3-8.2) g/dL Albumin (3.5-5.0) g/dL Urine Protein Trace H (Negative) Urine Blood Moderate H (Negative) Urine RBC 6 H (0-5) /hpf Urine Bacteria Rare H (None) /hpf Chest x-ray: report reviewed Assessment and Plan (1) Bicytopenia Narrative/Plan: this is due to chemotherapy effect. Thrombocytopenia is especially severe, and needs supplementation. Unit of platelets have been ordered. Hemoglobin is in a safe range. Continue to monitor and supplement if needed. White counts have already recovered. Status: Acute (2) Anterior epistaxis Narrative/Plan: Related to the very low platelet counts. This has resolved with local treatment. Patient is additionally getting a unit of platelets. Status: Acute (3) Pneumonia Narrative/Plan: the patient does have generalized weakness, but denies any fever, or significant cough. The chest x-ray however does note some new infiltrates. It is therefore reasonable to treat her with antibiotics for possible pneumonia at this time. she is currently on cefepime. White count is normal. Therefore if the patient continues to progress well, can be changed to oral antibiotics in the next 1-2 days Status: Acute (4) Lung cancer Narrative/Plan: The patient has known squamous cell cancer of the lung, with diagnostic and therapeutic circumstances as noted in the HPI. It is not known, if the current lung mass represents a new primary, order the recurrence of her previous disease. The radiologic appearance of the liver was highly suggestive of metastatic disease. However initial biopsy was negative for malignancy. The patient was supposed to have a repeat biopsy done about 2 weeks ago, but subsequently refused that after discussion with her family. Therefore, at this time, the plan is to continue treatment with her current chemotherapy regimen once her acute problem resolves Status: Acute
[2016-12-13] MEDS: methylPREDNISolone SOD SUCCI 125 MG/2 ML VIAL IV SCH ×2 (17:46→23:59)
[2016-12-13] MEDS: INSULIN LISPRO (humaLOG) 300 UNIT/3 ML VIAL SQ SCH ×2 (17:47→20:14)
--- NOTE | 2016-12-13 19:34 | HP ---
HISTORY AND PHYSICAL DATE OF SERVICE: 12/13/2016 CHIEF COMPLAINT: Fever and epistaxis. HISTORY OF PRESENT ILLNESS: This 76-year-old woman with a past medical history of GERD, history of lung cancer, history of chronic hypoxic respiratory failure being followed by Dr. Hinojosa in the outpatient setting, was receiving chemotherapy for lung cancer. The patient also had complaints of cough and fever 100.5. The patient also had intermittent which is increasing at this time. The patient came to [facility] and platelets found to be 4 and the patient was planned to give platelet transfusion. Patient also had significant COPD using oxygen at home as well. The patient is using oxygen currently through the mouth. There is no history of headache, loss of consciousness or seizures. No chest pain or palpitations at this time. PAST MEDICAL HISTORY: COPD, GERD, history of lung cancer. MEDICATIONS: Prior to admission include home medication: 1. Zantac 150 mg p.o. b.i.d. 2. Compazine 5 mg q.6h p.r.n. 3. Antivert 12.5 daily p.r.n. and 12.5 mg b.i.d. 4. Claritin 10 mg daily. 6. Lactose 10 mg p.o. b.i.d. 7. Combivent q.i.d. p.r.n. 8. DuoNeb q.i.d. p.r.n. 9. [place] 1 tab p.o. t.i.d. p.r.n. 10.Advair 250/50 1 puff b.i.d. 11.Cranberry 500 mg. 12.Pulmicort 0.5 b.i.d. 13.Xanax 1 mg t.i.d. p.r.n. ALLERGIES: IODINATED CONTRAST DYE. FAMILY HISTORY: History of cancer in the family. SOCIAL HISTORY: Previous history of smoking. No history of alcohol intake. REVIEW OF SYSTEMS: ENT: No diminished vision, no diminished hearing. Cardiovascular: No angina. Respiratory: As mentioned earlier. GI: No nausea or vomiting. : No dysuria. Central nervous system: No numbness or weakness. Allergy/Immunology: No asthma or hayfever. Musculoskeletal: As mentioned earlier. HEMATOLOGY/ONCOLOGY: No history of anemia. Endocrine: No history of diabetes or hypothyroidism. Constitutional: As mentioned earlier. Dermatology: Negative. Rheumatology: Negative. Psychiatric: As mentioned earlier. PHYSICAL EXAMINATION: Alert and oriented times three. Pulse 97, blood pressure 130/60, respirations 16, temperature 97.9, pulse ox is 97% on room air. HEENT: Conjunctivae normal. Oral mucosa moist. Neck is no jugular venous distention. No carotid bruit. No lymph node enlargement. Breathing efforts are markedly increased. Bilateral scattered rhonchi and crackles. No residual effects of the chest. ABDOMEN: Soft, nontender. No mass palpable. Legs no edema, no swelling. NERVOUS SYSTEM: Higher functions as mentioned earlier. Moves all four limbs. No focal deficits. Lymphatics: No lymph nodes palpable in the neck, axillae or groin. Skin: No ulcer, rash or bleeding. LABORATORY DATA: WBC 7.2, hemoglobin is 8, platelets of 4, INR is 1.2 and calcium is 8.3, total bili is 2.1, alkaline phosphatase 236, albumin is 2.3. Chest x-ray right apical and hilar infiltrate. ASSESSMENT: 1. Chronic obstructive pulmonary disease acute exacerbation with possible acute purulent tracheobronchitis. Possible acute right apical and hilar infiltrates and pneumonia with gram-negative. 2. Severe thrombocytopenia. 3. History of epistaxis secondary to thrombocytopenia. 4. History of lung cancer status post chemotherapy. 5. History of gastroesophageal reflux disease. 6. Chronic hypoxic respiratory failure. 7. Degenerative joint disease. 8. Anemia multifactorial macrocytic multifactorial secondary to malignancy. 9. Elevated total bilirubin. PLAN/DISCUSSION: In this 76-year-old woman who presented with multiple complex medical issues, we will monitor the patient closely. Continue the current management. Continue symptomatic treatment. The patient is already started on Abilify and plan to continue the medication. Obtain blood culture. Optimize bronchodilators. I would also recommend a course of steroids also. Otherwise continue to monitor and Dr. Schaefer will be consulted and Dr. Shaver will be consulted. Prognosis guarded. Discussed with the patient , understands and agrees. A copy being forwarded to Dr. Hinojosa, who is the primary care physician. TERRY / ANETTE: [id number] / MTDNusrat
[2016-12-13] MEDS: BUDESONIDE 1 MG/2 ML NEBU INHALATION SCH (19:42)
[2016-12-13] MEDS: FORMOTEROL FUMARATE 20 MCG/2 ML NEBU INHALATION SCH (19:42)
[2016-12-13] MEDS: FLUCONAZOLE 100 MG TAB PO SCH (20:08)
[2016-12-13 20:09] LABS: Glucose,Whole Blood 171 mg/dL (75-99)
[2016-12-13] MEDS: ALPRAZolam 0.5 MG TAB PO PRN (23:45)
[2016-12-14] MEDS: methylPREDNISolone SOD SUCCI 125 MG/2 ML VIAL IV SCH ×4 (05:51→23:27)
[2016-12-14 07:03] LABS: Anisocytosis Slight; Basophils % (A) 0 %; CH 31.9; CHCM 30.7; Eosinophils % (A) 0 %; HCT 21.7 % (34.0-46.0); HDW 2.91; Hypochromasia Moderate; Luc # (Auto) 0.06; Luc % (Auto) 1; Lymphocytes # (A) 0.4 k/uL (1.0-4.8); Lymphocytes % (A) 8 %; MCH 33.1 pg (25.0-35.0); MCHC 31.6 g/dL (31.0-37.0); MCV 104.6 fL (80.0-100.0); Macrocytosis Moderate; Mean Platelet Volume 9.2; Monocytes # (A) 0.1 k/uL (0-1.0); Monocytes % (A) 3 %; Neutrophils # (A) 3.9 k/uL (1.3-7.7); Neutrophils % (A) 87 %; RBC 2.08 m/uL (3.80-5.40); RDW 16.2 % (11.5-15.5); WBC 4.5 k/uL (3.8-10.6); WBC (Perox) 4.58
[2016-12-14 07:07] LABS: HGB 6.9 gm/dL (11.4-16.0)
[2016-12-14 07:08] LABS: Glucose,Whole Blood 201 mg/dL (75-99)
[2016-12-14 07:14] LABS: ALT 38 U/L (9-52); AST 41 U/L (14-36); Alkaline Phosphatase 243 U/L (38-126); Anion Gap 8 mmol/L; Blood Urea Nitrogen 12 mg/dL (7-17); Calcium 8.6 mg/dL (8.4-10.2); Carbon Dioxide 22 mmol/L (22-30); Chloride 105 mmol/L (98-107); Glucose 188 mg/dL (74-99); Non-African American GFR(MDRD) >60 (>60 ml/min/1.73 sqM); Potassium 3.9 mmol/L (3.5-5.1); Sodium 135 mmol/L (137-145); Total Bilirubin 0.8 mg/dL (0.2-1.3); Total Protein 5.4 g/dL (6.3-8.2)
[2016-12-14] MEDS: IPRATROPIUM-ALBUTEROL 3 ML NEB INHALATION SCH ×4 (07:30→20:12)
[2016-12-14] MEDS: FORMOTEROL FUMARATE 20 MCG/2 ML NEBU INHALATION SCH ×2 (07:30→20:11)
[2016-12-14] MEDS ORDERED: PANTOPRAZOLE 40 MG TABLET PO SCH (07:30)
[2016-12-14] MEDS: BUDESONIDE 1 MG/2 ML NEBU INHALATION SCH ×2 (07:30→20:11)
[2016-12-14] MEDS: FAMOTIDINE 20 MG TAB PO SCH ×2 (07:56→20:57)
[2016-12-14] MEDS: MECLIZINE 12.5 MG TAB PO SCH ×2 (07:57→20:59)
[2016-12-14] MEDS: HYDROcodone/APAP 10-325MG 1 EACH TAB PO PRN ×2 (07:58→16:20)
[2016-12-14] MEDS: LACTULOSE 20 GM/30 ML CUP PO SCH ×2 (08:42→20:57)
[2016-12-14] MEDS: LORATADINE 10 MG TAB PO SCH (08:42)
[2016-12-14] MEDS: INSULIN LISPRO (humaLOG) 300 UNIT/3 ML VIAL SQ SCH ×4 (08:42→20:58)
[2016-12-14] MEDS: CEFEPIME 1 GM in SODIUM CHLORIDE 0.9% 50 ML IVPB SCH ×2 (08:44→20:58)
[2016-12-14 11:55] LABS: Glucose,Whole Blood 214 mg/dL (75-99)
[2016-12-14 12:22] LABS: Hemoglobin A1C 5.7 % (4.2-6.1)
--- NOTE | 2016-12-14 13:15 | P.PN ---
Subjective Progress Note Date: 12/14/16 Principal diagnosis: fever, epistaxis Patient seen today in follow-up. Patient states feeling better today. Denies fever, nausea, oral irritation, she is still coughing, small amounts of sputum, denies hemoptysis, no chest pain pain with urination, she states an episode of diarrhea yesterday 1, no other physical complaints. She is ambulating to the bathroom. Objective - Vital Signs Vital signs: Vital Signs Temp 97.4 F L 12/14/16 11:19 Pulse 96 12/14/16 11:27 Resp 16 12/14/16 11:19 BP 130/70 12/14/16 11:19 Pulse Ox 95 12/14/16 11:19 Intake & Output 12/13/16 12/14/16 12/14/16 18:59 06:59 18:59 Intake Total 421 50 0 Balance 421 50 0 Intake: Intake, IV Titration 50 Amount Cefepime 1 gm In Sodium 50 Chloride 0.9% 50 ml @ 100 mls/hr IVPB BID [facility] Rx#: [id number] Blood Product 421 0 Platelet Pheresis Acda 421 Unit [id number] Rc As-3 Unit 0 [id number] Other: Voiding Method Toilet Toilet Toilet # Voids 3 1 # Bowel Movements 2 1 - Constitutional General appearance: Present: average body habitus, cooperative, no acute distress - EENT Eyes: Present: anicteric sclerae ENT: Present: normal oropharynx - Neck Neck: Absent: lymphadenopathy - Respiratory Respiratory: right: wheezing, bilateral: rales (bases) - Cardiovascular Heart sounds: normal: S1, S2 - Peripheral edema foot Peripheral Edema: right: 1+, left: Trace - Gastrointestinal General gastrointestinal: Present: normal bowel sounds, soft - Neurologic Neurologic: Present: CNII-XII intact - Musculoskeletal Musculoskeletal: Present: generalized weakness, strength equal bilaterally - Psychiatric Psychiatric: Present: A&O x's 3, appropriate affect, intact judgment & insight - Labs CBC & Chem 7: 12/14/16 06:45 12/14/16 06:45 Labs: Abnormal Lab Results - Last 24 Hours (Table) 12/13/16 12/13/16 12/14/16 Range/Units 05:00 19:56 06:45 RBC 2.08 L (3.80-5.40) m/uL Hgb 6.9 L* (11.4-16.0) gm/dL Hct 21.7 L (34.0-46.0) % MCV 104.6 H (80.0-100.0) fL RDW 16.2 H (11.5-15.5) % Plt Count 32 L* D (150-450) k/uL Lymphocytes # 0.4 L (1.0-4.8) k/uL Sodium (137-145) mmol/L Glucose (74-99) mg/dL POC Glucose (mg/dL) 171 H (75-99) mg/dL AST (14-36) U/L Alkaline Phosphatase (38-126) U/L Total Protein (6.3-8.2) g/dL Albumin (3.5-5.0) g/dL Crossmatch See Detail 12/14/16 12/14/16 12/14/16 Range/Units 06:45 07:05 11:22 RBC (3.80-5.40) m/uL Hgb (11.4-16.0) gm/dL Hct (34.0-46.0) % MCV (80.0-100.0) fL RDW (11.5-15.5) % Plt Count (150-450) k/uL Lymphocytes # (1.0-4.8) k/uL Sodium 135 L (137-145) mmol/L Glucose 188 H (74-99) mg/dL POC Glucose (mg/dL) 201 H 214 H (75-99) mg/dL AST 41 H (14-36) U/L Alkaline Phosphatase 243 H (38-126) U/L Total Protein 5.4 L (6.3-8.2) g/dL Albumin 2.4 L (3.5-5.0) g/dL Crossmatch Microbiology - Last 24 Hours (Table) 12/13/16 09:10 Gram Stain - Preliminary Sputum 12/12/16 21:28 Blood Culture - Preliminary Blood No Growth after 24 hours 12/13/16 11:15 Urine Culture - Preliminary Urine,Clean Catch Assessment and Plan (1) Anterior epistaxis Narrative/Plan: Due to thrombocytopenia secondary to chemotherapy. Hemostasis has been achieved , no further instances of epistaxis. Status: Acute (2) Bicytopenia Narrative/Plan: Platelets have been supplemented, appropriate increase in platelet count, no transfusion needed today. Hemoglobin 6.9, 1 unit of packed red blood cells has been ordered for transfusion. CBC in a.m. Status: Acute (3) Lung cancer Narrative/Plan: Patient is status post second cycle of carboplatin and Gemzar days 1 and 8. Treatment is going to be continued after her current situation is resolved. Status: Acute (4) COPD with exacerbation Narrative/Plan: Patient being treated for COPD exacerbation, management deferred to attending. Status: Acute
--- NOTE | 2016-12-14 16:08 | PN ---
PROGRESS NOTE DATE OF SERVICE: 12/14/2016 This 76-year-old woman who was admitted with fever and as well as shortness of breath also had epitaxies. The patient was started on intensive bronchodilator treatment. Breathing is much easier today. Epistaxis also seems to be relieved. The platelets improved to 32 from 4 with. Hemoglobin 6.9 today though. The patient is being arranged to have a transfusion, PRBCs today. The patient has been closely monitored. PAST MEDICAL HISTORY: Reviewed. REVIEW OF SYSTEMS: ENT: Mentioned earlier. CARDIOVASCULAR: No angina. RESPIRATORY: As mentioned earlier. GI: No nausea. : No dysuria. NERVOUS SYSTEM: No numbness or weakness. CURRENT MEDICATIONS: Reviewed and include: 1. [place] 10 t.i.d. p.r.n. 2. DuoNeb q.i.d. and p.r.n. 3. Xanax 1 mg t.i.d. p.r.n. 4. Pulmicort 1 mg b.i.d. 5. Cefepime 1 g b.i.d. 6. Pepcid 20 mg b.i.d. 7. Effient 100 mg b.i.d. 8. Perforomist b.i.d. 9. Dilaudid 0.5 q.6h p.r.n. 10.Cephulac 10 mg b.i.d. 11.Claritin. 12.Antivert 12.5 mg daily. 13.Solu-Medrol 60 IV q.6h. 14.Zofran. 15.Restoril. PHYSICAL EXAM: Patient is alert, oriented, pulse is 98, blood pressure is 139/73, respirations 16, temperature 97.6, pulse ox 94% room air. HEENT: Conjunctivae normal. Oral mucosa moist. NECK: No jugular venous distention. No carotid bruit. No lymph node enlargement. CARDIOVASCULAR: S1, S2. RESPIRATORY: Breath sounds diminished in the bases. Bilateral scattered rhonchi and expiratory wheezing also present. ABDOMEN: Soft. Nontender. No mass palpable. LEGS: No edema no swelling. NERVOUS SYSTEM: Higher functions as mentioned earlier. Moves all four limbs. No focal deficits. LYMPHATICS: No lymphadenopathy in the neck, axillae or groin. SKIN: No rash, ulcer or bleeding. LAB: WBC 12.2, hemoglobin 6.93. Platelets are 32, albumin 3.2. ASSESSMENT: 1. Chronic obstructive pulmonary disease acute exacerbation with possible acute purulent tracheobronchitis with right and perihilar infiltrates pneumonia possibly gram-negative. 2. Severe thrombocytopenia. 3. History of epistaxis secondary to thrombocytopenia. 4. History of lung cancer, status post chemotherapy. 5. History of gastroesophageal reflux disease. 6. History hypoxic respiratory failure, chronic. 7. History of degenerative joint disease. 8. History of anemia multifactorial macrocytic, multifactorial and also malignancy and chemotherapy. 9. Elevated total bilirubin. RECOMMENDATIONS AND DISCUSSION: I recommend to continue current management and symptomatic treatment. Otherwise at this time, I would recommend continue with IV steroids, bronchodilators. Continue empiric antibiotics. Continue with the transfusion. Guarded prognosis because of multiple complex medical issues. Further recommendations to follow. Discussed with the patient who understands and agrees. Discussed with staff. TERRY / ANETTE: [id number] / MTDD
[2016-12-14 17:49] LABS: Glucose,Whole Blood 189 mg/dL (75-99)
[2016-12-14 20:24] LABS: Glucose,Whole Blood 198 mg/dL (75-99)
[2016-12-14] MEDS: FLUCONAZOLE 100 MG TAB PO SCH (20:57)
[2016-12-15] MEDS: methylPREDNISolone SOD SUCCI 125 MG/2 ML VIAL IV SCH ×2 (05:32→12:56)
[2016-12-15 06:28] LABS: Anisocytosis Slight; Aty Lym Flag Slight; CH 31.5; HCT 25.8 % (34.0-46.0); HDW 3.37; Hypochromasia Slight; MCH 32.3 pg (25.0-35.0); MCHC 32.4 g/dL (31.0-37.0); MCV 99.8 fL (80.0-100.0); Macrocytosis Slight; Mean Platelet Volume 9.1; RBC 2.59 m/uL (3.80-5.40); RDW 18.3 % (11.5-15.5); WBC 5.1 k/uL (3.8-10.6); WBC (Perox) 5.26
[2016-12-15 06:31] LABS: Anion Gap 9 mmol/L; Blood Urea Nitrogen 15 mg/dL (7-17); Calcium 8.9 mg/dL (8.4-10.2); Carbon Dioxide 21 mmol/L (22-30); Chloride 105 mmol/L (98-107); Glucose 201 mg/dL (74-99); Non-African American GFR(MDRD) >60 (>60 ml/min/1.73 sqM); Potassium 4.2 mmol/L (3.5-5.1); Sodium 135 mmol/L (137-145)
[2016-12-15] MEDS: HYDROcodone/APAP 10-325MG 1 EACH TAB PO PRN ×3 (06:54→21:38)
[2016-12-15 07:27] LABS: Glucose,Whole Blood 189 mg/dL (75-99)
[2016-12-15 07:49] LABS: Add Differential Manual Differential
[2016-12-15 07:52] LABS: Nucleated Red Blood Cells 0 /100 WBC (0-0); Total Cells Counted 100
[2016-12-15] MEDS: BUDESONIDE 1 MG/2 ML NEBU INHALATION SCH ×2 (08:13→21:23)
[2016-12-15] MEDS: FORMOTEROL FUMARATE 20 MCG/2 ML NEBU INHALATION SCH ×2 (08:14→21:22)
[2016-12-15] MEDS: IPRATROPIUM-ALBUTEROL 3 ML NEB INHALATION SCH ×4 (08:14→21:22)
[2016-12-15] MEDS: INSULIN LISPRO (humaLOG) 300 UNIT/3 ML VIAL SQ SCH ×4 (08:20→21:36)
[2016-12-15] MEDS: MECLIZINE 12.5 MG TAB PO SCH ×2 (08:21→21:35)
[2016-12-15] MEDS: FAMOTIDINE 20 MG TAB PO SCH (08:21)
[2016-12-15] MEDS: LORATADINE 10 MG TAB PO SCH (08:21)
[2016-12-15] MEDS: LACTULOSE 20 GM/30 ML CUP PO SCH ×2 (08:21→21:35)
[2016-12-15] MEDS: ALPRAZolam 0.5 MG TAB PO PRN (08:26)
[2016-12-15] MEDS: CEFEPIME 1 GM in SODIUM CHLORIDE 0.9% 50 ML IVPB SCH ×2 (08:26→21:35)
[2016-12-15 11:22] LABS: Glucose,Whole Blood 143 mg/dL (75-99)
--- NOTE | 2016-12-15 16:21 | PN ---
PROGRESS NOTE DATE OF SERVICE: 12/15/2016 This 76-year-old woman who was admitted with fever and shortness of breath also had COPD. The patient has severe thrombocytopenia. Patient had anemia secondary to malignancy. The patient was transfused. Currently the patient is feeling slightly better. No chest pain. No palpitations. No fever. Occasional cough is reported. Past medical history reviewed. REVIEW OF SYSTEMS: CARDIOVASCULAR SYSTEM: No angina, palpitations. RESPIRATORY SYSTEM: As mentioned earlier. GI: No nausea, vomiting. : No dysuria or retention. NERVOUS SYSTEM: No numbness, weakness.. CURRENT MEDICATIONS: Current medications are reviewed and include: 1. Cranberry 10 mg t.i.d. p.r.n. 2. DuoNeb q.i.d. and p.r.n. 3. Xanax 1 mg t.i.d. p.r.n. 4. Pulmicort 1 mg b.i.d. 5. Cefepime 1 gram IV b.i.d. 6. Pepcid 20 mg daily. 7. Diflucan 200 mg daily. 8. Perforomist 20 mg b.i.d. 9. Humalog before meals and at bedtime. 10.Cephulac 10 mg b.i.d. 11.Claritin 10 mg daily. 12.Antivert 12.5 mg daily and b.i.d. 13.Solu-Medrol 60 IV q.6. 14.Zofran 8 mg IV q.6 p.r.n. 15.Restoril 15 mg at bedtime p.r.n. PHYSICAL EXAMINATION: Patient is alert and oriented x3. The pulse is 92, blood pressure 136/71, respiration 18, temperature 97.2, pulse ox 94% on room air. HEENT: Conjunctivae normal. NECK: No jugular venous distention. CARDIOVASCULAR SYSTEM: S1, S2 muffled. RESPIRATORY SYSTEM: Breath sounds diminished at the bases. Bilateral scattered rhonchi and coarse crackles also. Crackles are cleared partially after deep coughing. ABDOMEN: Soft, nontender. No mass palpable. No hepatosplenomegaly. LEGS: No edema. No swelling. NERVOUS SYSTEM: Higher functions as mentioned earlier. Moves all four limbs. No focal motor or sensory deficit. LYMPHATICS: No lymph node palpable in neck, axillae or groin. SKIN: No ulcer, rash, bleeding. LABS: WBC 5.1, hemoglobin is 8.4, platelets 28. Sodium 135. ASSESSMENT: 1. Chronic obstructive pulmonary disease, acute exacerbation, with acute purulent tracheobronchitis with right upper perihilar infiltrates and pneumonia, possibly Gram-negative. 2. Severe thrombocytopenia secondary to malignancy. 3. History of epistaxis secondary to thrombocytopenia. 4. History of lung cancer, status post chemotherapy. 5. Anemia secondary to chemotherapy as well as malignancy. 6. History of gastroesophageal reflux disease. 7. History of hypoxic respiratory failure, chronic. 8. History of degenerative joint disease. 9. History of elevated total bilirubin. RECOMMENDATIONS AND DISCUSSION: I recommend to continue current medication, continue symptomatic treatment. Taper the steroids. Continue the bronchodilators. Continue empiric antibiotics. Closely follow with multiple consultants. Increase ambulation. Otherwise, guarded prognosis because of multiple complex medical issues. Further recommendations to follow. MMODL / IJN: [id number] /
[2016-12-15 17:17] LABS: Glucose,Whole Blood 220 mg/dL (75-99)
[2016-12-15] MEDS: methylPREDNISolone SOD SUCCI 40 MG/ML 1 ML VIAL IV SCH ×2 (18:24→23:53)
[2016-12-15 20:21] LABS: Glucose,Whole Blood 172 mg/dL (75-99)
[2016-12-15] MEDS: FLUCONAZOLE 100 MG TAB PO SCH (21:35)
[2016-12-16 06:32] LABS: Anisocytosis Slight; Aty Lym Flag Slight; CH 32.5; CHCM 33.1; HCT 27.8 % (34.0-46.0); HDW 3.18; HGB 8.8 gm/dL (11.4-16.0); Immature Gran Flag Marked; MCH 31.5 pg (25.0-35.0); MCHC 31.8 g/dL (31.0-37.0); MCV 99.2 fL (80.0-100.0); Macrocytosis Slight; Mean Platelet Volume 9.9; RDW 18.7 % (11.5-15.5); WBC (Perox) 11.92
[2016-12-16 06:53] LABS: Anion Gap 6 mmol/L; Blood Urea Nitrogen 17 mg/dL (7-17); Calcium 9.2 mg/dL (8.4-10.2); Carbon Dioxide 26 mmol/L (22-30); Chloride 100 mmol/L (98-107); Glucose 192 mg/dL (74-99); Non-African American GFR(MDRD) >60 (>60 ml/min/1.73 sqM); Potassium 4.8 mmol/L (3.5-5.1); Sodium 132 mmol/L (137-145)
[2016-12-16] MEDS: FORMOTEROL FUMARATE 20 MCG/2 ML NEBU INHALATION SCH ×2 (07:11→20:28)
[2016-12-16] MEDS: BUDESONIDE 1 MG/2 ML NEBU INHALATION SCH ×2 (07:11→20:28)
[2016-12-16] MEDS: IPRATROPIUM-ALBUTEROL 3 ML NEB INHALATION SCH ×4 (07:11→20:31)
[2016-12-16 07:20] LABS: Glucose,Whole Blood 174 mg/dL (75-99)
[2016-12-16 07:59] LABS: Add Differential Manual Differential
[2016-12-16 08:05] LABS: Band Neutrophils % 3 %; Manual Review Performed; Metamyelocytes % 6 %; Myelocytes % 2 %; Nucleated Red Blood Cells 2 /100 WBC (0-0); Total Cells Counted 200
[2016-12-16] MEDS: methylPREDNISolone SOD SUCCI 40 MG/ML 1 ML VIAL IV SCH ×3 (08:11→23:43)
[2016-12-16] MEDS: LORATADINE 10 MG TAB PO SCH (08:12)
[2016-12-16] MEDS: INSULIN LISPRO (humaLOG) 300 UNIT/3 ML VIAL SQ SCH ×4 (08:12→20:58)
[2016-12-16] MEDS: LACTULOSE 20 GM/30 ML CUP PO SCH ×2 (08:12→20:56)
[2016-12-16] MEDS: CEFEPIME 1 GM in SODIUM CHLORIDE 0.9% 50 ML IVPB SCH ×2 (08:12→20:55)
[2016-12-16] MEDS: FAMOTIDINE 20 MG TAB PO SCH (08:12)
[2016-12-16] MEDS: MECLIZINE 12.5 MG TAB PO SCH ×2 (08:13→20:56)
[2016-12-16] MEDS: HYDROcodone/APAP 10-325MG 1 EACH TAB PO PRN ×2 (08:23→20:55)
[2016-12-16 11:50] LABS: Glucose,Whole Blood 183 mg/dL (75-99)
--- NOTE | 2016-12-16 14:16 | US ---
EXAMINATION TYPE: US venous doppler duplex LE BI DATE OF EXAM: 12/16/2016 2:00 PM COMPARISON: NONE CLINICAL HISTORY: rule out DVT. Swelling bilaterally SIDE PERFORMED: Bilateral TECHNIQUE: The lower extremity deep venous system is examined utilizing real time linear array sonog lianet with graded compression, doppler sonography and color-flow sonography. VESSELS IMAGED: External Iliac Vein (EIV) Common Femoral Vein Deep Femoral Vein Greater Saphenous Vein * Femoral Vein Popliteal Vein Small Saphenous Vein * Proximal Calf Veins (* superficial vessels) Right Leg: Appears negative for DVT Left Leg: Appears negative for DVT Popliteal fossa lesion is seen. IMPRESSION: THIS EXAMINATION IS NEGATIVE FOR DVT IN BOTH LEGS.
[2016-12-16] MEDS: FUROSEMIDE 10 MG/ML 4 ML VIAL IV SCH (14:55)
--- NOTE | 2016-12-16 16:24 | XR ---
EXAMINATION TYPE: XR chest 2V DATE OF EXAM: 12/16/2016 COMPARISON: December 12, 2016 HISTORY: Cough TECHNIQUE: Frontal and lateral views of the chest are obtained. FINDINGS: There is a small right-sided pleural effusion. No pneumothorax is identified. There is mil d cephalization of the vessels which could be due to mild CHF. No definite left-sided pleural effusio n is identified. Postoperative changes from total reverse left shoulder arthroplasty are noted. Fusio n hardware in the cervical spine is noted. There is a Mediport in the right upper chest with tip in t he superior vena cava. The cardiac silhouette is within normal limits. IMPRESSION: A small right-sided pleural effusion is noted which does not appear significantly changed when compar ed to the previous study from December 12.
--- NOTE | 2016-12-16 16:55 | PN ---
PROGRESS NOTE DATE OF SERVICE: 12/16/2016 INTERVAL HISTORY: This 76-year-old woman who was admitted with COPD acute exacerbation as well as pneumonia is being closely monitored. The patient also had severe thrombocytopenia associated with epistaxis also present on admission. Currently congestion is improved. The platelets are stable at 24. Patient has significant ecchymosis. Patient also complaining of bilateral leg edema also. The previous ultrasound was negative for DVT. At this time the patient also had diminished p.o. intake. After steroids, the patient is reporting decreased appetite at this time. Patient being closely monitored. PAST MEDICAL HISTORY: Reviewed. REVIEW OF SYSTEMS: Cardiovascular: No angina. No palpitations. Respiratory: As mentioned earlier. GI no nausea or vomiting. : No dysuria. Nervous system: Diffusely weak. CURRENT MEDICATIONS ARE: Reviewed and include: 1. [place] 10 mg t.i.d. p.r.n. 2. DuoNeb q.i.d. and p.r.n. 3. Xanax 1 mg t.i.d. p.r.n. 4. Pulmicort 1 mg b.i.d. 5. Cefepime 1 gm IV b.i.d. 6. Diflucan 100 mg daily. 7. Dilaudid. 8. Cephalexin 10 mg daily. 9. Antivert. 10.Solu-Medrol 40 IV q.8h. 11.Restoril. PHYSICAL EXAM: Patient is alert, oriented times two. Pulse is 92. Blood pressure 135/79, respiration 18, temperature 97.2, pulse ox 99% on 2 L. HEENT: Conjunctivae normal. Neck: No jugular venous distention. Cardiovascular: S1, S2 muffled. Respiratory: Breath sounds diminished in the bases. A few scattered rhonchi. ABDOMEN: Soft, nontender. No mass palpable. Legs: No edema. No swelling. Central nervous system: No focal deficits. LAB STUDIES: WBC 11, hemoglobin is 8.2, platelets 23, sodium 132. ASSESSMENT: 1. Chronic obstructive pulmonary disease acute exacerbation with acute tracheobronchitis as well as right upper lobe perihilar infiltrate pneumonia possibly gram-negative. 2. Severe thrombocytopenia secondary to malignancy. 3. Gait dysfunction. 4. History of epistaxis secondary to thrombocytopenia. 5. History of lung cancer status post chemotherapy. 6. Bilateral leg edema. Possibly multifactorial. 7. Anemia secondary to chemotherapy as well as malignancy. 8. History of gastroesophageal reflux disease. 9. History of chronic hypoxic respiratory failure. 10.History of degenerative joint disease. 11.Elevated total bilirubin. RECOMMENDATIONS AND DISCUSSION: Recommend to continue current medications, continue to monitor. Symptomatic treatment. Otherwise at this time, recommend ultrasound of the legs to rule out the possibility of DVT. Otherwise I would also recommend continue the current medications. Taper steroids further. I would also recommend empiric antibiotics. Monitor closely. Improve diet. Otherwise guarded prognosis because of multiple complex medical issues and further recommendations to follow. MMODL / IJN: [id number] /
[2016-12-16 17:13] LABS: Glucose,Whole Blood 195 mg/dL (75-99)
[2016-12-16 19:48] LABS: HGB 8.4 gm/dL (11.4-16.0)
[2016-12-16 20:14] LABS: Glucose,Whole Blood 130 mg/dL (75-99)
[2016-12-16] MEDS: ALPRAZolam 0.5 MG TAB PO PRN (20:55)
[2016-12-16] MEDS: FLUCONAZOLE 100 MG TAB PO SCH (20:56)
[2016-12-17 06:47] LABS: Anion Gap 6 mmol/L; Blood Urea Nitrogen 21 mg/dL (7-17); Calcium 9.2 mg/dL (8.4-10.2); Carbon Dioxide 31 mmol/L (22-30); Chloride 97 mmol/L (98-107); Glucose 190 mg/dL (74-99); Non-African American GFR(MDRD) >60 (>60 ml/min/1.73 sqM); Sodium 134 mmol/L (137-145)
[2016-12-17 07:24] LABS: Glucose,Whole Blood 206 mg/dL (75-99)
[2016-12-17] MEDS: INSULIN LISPRO (humaLOG) 300 UNIT/3 ML VIAL SQ SCH ×4 (07:36→21:30)
[2016-12-17 07:52] LABS: Anisocytosis Slight; CH 31.4; CHCM 31.9; HCT 28.2 % (34.0-46.0); HDW 2.95; HGB 9.1 gm/dL (11.4-16.0); Immature Gran Flag Marked; MCHC 32.2 g/dL (31.0-37.0); MCV 99.2 fL (80.0-100.0); Macrocytosis Slight; Mean Platelet Volume 10.7; RBC 2.84 m/uL (3.80-5.40); RDW 17.8 % (11.5-15.5); WBC (Perox) 28.09
[2016-12-17] MEDS: IPRATROPIUM-ALBUTEROL 3 ML NEB INHALATION SCH ×4 (08:31→21:33)
[2016-12-17] MEDS: BUDESONIDE 1 MG/2 ML NEBU INHALATION SCH ×3 (08:31→21:50)
[2016-12-17] MEDS: FORMOTEROL FUMARATE 20 MCG/2 ML NEBU INHALATION SCH ×2 (08:31→21:33)
[2016-12-17 08:52] LABS: Add Differential Manual Differential
[2016-12-17 08:57] LABS: Band Neutrophils % 18 %; Metamyelocytes % 7 %; Myelocytes % 12 %; Nucleated Red Blood Cells 2 /100 WBC (0-0); Promyelocytes % 1 %; Total Cells Counted 200
[2016-12-17 08:58] LABS: WBC 27.2 k/uL (3.8-10.6)
[2016-12-17] MEDS: CEFEPIME 1 GM in SODIUM CHLORIDE 0.9% 50 ML IVPB SCH ×2 (09:12→21:41)
[2016-12-17] MEDS: FAMOTIDINE 20 MG TAB PO SCH (09:13)
[2016-12-17] MEDS: LACTULOSE 20 GM/30 ML CUP PO SCH ×2 (09:14→21:41)
[2016-12-17] MEDS: FUROSEMIDE 10 MG/ML 4 ML VIAL IV SCH (09:14)
[2016-12-17] MEDS: MECLIZINE 12.5 MG TAB PO SCH ×2 (09:14→21:45)
[2016-12-17] MEDS: methylPREDNISolone SOD SUCCI 40 MG/ML 1 ML VIAL IV SCH (09:50)
[2016-12-17] MEDS: LORATADINE 10 MG TAB PO SCH (09:50)
[2016-12-17 11:50] LABS: Glucose,Whole Blood 206 mg/dL (75-99)
[2016-12-17 17:26] LABS: Glucose,Whole Blood 154 mg/dL (75-99)
[2016-12-17] MEDS: predniSONE 20 MG TAB PO SCH (17:31)
[2016-12-17] MEDS: METOPROLOL TARTRATE 12.5 MG TAB PO SCH ×2 (17:31→21:44)
--- NOTE | 2016-12-17 17:56 | PN ---
PROGRESS NOTE DATE OF SERVICE: 12/17/2016 INTERVAL HISTORY: This 76-year-old woman who was admitted with multiple medical problems, including COPD acute exacerbation, possible pneumonia is being closely monitored. No chest pain. No palpitations. No fever. The patient also had bilateral leg edema also. The patient is extremely weak. PT and OT are evaluating the patient closely. EXAM: Alert and oriented x3. The pulse is 115, blood pressure 130/60, respiration 17, temperature 98.2, pulse ox 93% room air. HEENT: Conjunctivae normal. NECK: No jugular venous distention. CARDIOVASCULAR: S1, S2 RESPIRATORY: Breath sounds diminished in the bases. A few scattered rhonchi and crackles. ABDOMEN: Soft, nontender. No mass palpable. LEGS: Bilateral leg edema. NERVOUS SYSTEM: Mild diffuse weakness. LAB EVALUATIONS: At this time WBC 27.4, hemoglobin is 9.8, sodium 134. ASSESSMENT: 1. Chronic obstructive pulmonary disease exacerbation with right upper and perihilar pneumonia possibly bronchopneumonia possibly gram-negative. 2. Thrombocytopenia secondary to malignancy, improving. 3. Gait dysfunction. 4. History of epistaxis secondary thrombocytopenia. 5. History of lung cancer, status post chemotherapy. 6. Tachycardia. 7. Bilateral leg edema, possibly multifactorial. 8. Anemia secondary to chemotherapy as well as malignancy. RECOMMENDATIONS AND DISCUSSION: I recommend to continue current management and symptomatic treatment. Otherwise at this time I recommend continue the bronchodilators, taper the steroids. Closely monitor. PT and OT evaluation. Possible ECF rehab. See orders for details. Guarded prognosis because of multiple complex medical issues. Further recommendations to follow. MMODL / IJN: [id number] /
[2016-12-17 19:55] LABS: Glucose,Whole Blood 164 mg/dL (75-99)
[2016-12-17] MEDS: FLUCONAZOLE 100 MG TAB PO SCH (21:44)
[2016-12-18] MEDS: ALPRAZolam 0.5 MG TAB PO PRN (00:16)
[2016-12-18] MEDS: HYDROcodone/APAP 10-325MG 1 EACH TAB PO PRN ×3 (02:20→22:45)
[2016-12-18 06:25] LABS: Anisocytosis Slight; CH 31.4; CHCM 31.4; HCT 27.4 % (34.0-46.0); HDW 2.87; HGB 8.8 gm/dL (11.4-16.0); Hypochromasia Slight; Immature Gran Flag Marked; MCH 32.3 pg (25.0-35.0); MCV 100.8 fL (80.0-100.0); Macrocytosis Slight; Mean Platelet Volume 10.4; RBC 2.72 m/uL (3.80-5.40); RDW 17.9 % (11.5-15.5); WBC (Perox) 45.45
[2016-12-18 06:33] LABS: WBC 45.3 k/uL (3.8-10.6)
[2016-12-18 06:44] LABS: Anion Gap 5 mmol/L; Blood Urea Nitrogen 25 mg/dL (7-17); Carbon Dioxide 33 mmol/L (22-30); Chloride 97 mmol/L (98-107); Glucose 170 mg/dL (74-99); Non-African American GFR(MDRD) >60 (>60 ml/min/1.73 sqM); Potassium 3.8 mmol/L (3.5-5.1); Sodium 135 mmol/L (137-145)
[2016-12-18] MEDS: BUDESONIDE 1 MG/2 ML NEBU INHALATION SCH ×2 (07:29→20:46)
[2016-12-18] MEDS: FORMOTEROL FUMARATE 20 MCG/2 ML NEBU INHALATION SCH ×2 (07:30→20:46)
[2016-12-18] MEDS: IPRATROPIUM-ALBUTEROL 3 ML NEB INHALATION SCH ×4 (07:30→20:46)
[2016-12-18 07:38] LABS: Glucose,Whole Blood 162 mg/dL (75-99)
[2016-12-18 08:08] LABS: Add Differential Manual Differential
[2016-12-18 08:11] LABS: Band Neutrophils % 8 %; Metamyelocytes % 12 %; Myelocytes % 13 %; Nucleated Red Blood Cells 0 /100 WBC (0-0); Total Cells Counted 200
[2016-12-18 08:12] LABS: Manual Review Performed; Polychromasia Present; Toxic Granulation Present
[2016-12-18] MEDS: METOPROLOL TARTRATE 12.5 MG TAB PO SCH ×2 (09:04→20:30)
[2016-12-18] MEDS: LORATADINE 10 MG TAB PO SCH (09:04)
[2016-12-18] MEDS: MECLIZINE 12.5 MG TAB PO SCH ×2 (09:04→20:30)
[2016-12-18] MEDS: predniSONE 20 MG TAB PO SCH (09:04)
[2016-12-18] MEDS: LACTULOSE 20 GM/30 ML CUP PO SCH ×2 (09:04→21:48)
[2016-12-18] MEDS: INSULIN LISPRO (humaLOG) 300 UNIT/3 ML VIAL SQ SCH ×4 (09:05→20:31)
[2016-12-18] MEDS: CEFEPIME 1 GM in SODIUM CHLORIDE 0.9% 50 ML IVPB SCH ×2 (09:05→20:30)
[2016-12-18] MEDS: FAMOTIDINE 20 MG TAB PO SCH ×2 (09:05→20:29)
[2016-12-18] MEDS: FUROSEMIDE 10 MG/ML 4 ML VIAL IV SCH (09:05)
[2016-12-18 11:25] LABS: Glucose,Whole Blood 153 mg/dL (75-99)
[2016-12-18 12:49] LABS: Appearance,Urine Clear (Clear); Bilirubin,Urine Negative (Negative); Glucose,Urine (UA) Negative (Negative); Ketones,Urine Negative (Negative); Leukocyte Esterase,Urine Negative (Negative); Nitrite,Urine Negative (Negative); Protein,Urine Negative (Negative); Specific Gravity,Urine 1.005 (1.001-1.035); UA Billing (MACRO vs. MICRO) CHEM; Urobilinogen,Urine <2.0 mg/dL (<2.0)
--- NOTE | 2016-12-18 14:16 | P.PN ---
Subjective Progress Note Date: 12/18/16 Principal diagnosis: fever, epistaxis Pt seen today in follow up, she is sitting at the bedside, daughter is there with her, pt is lethargic, slow to respond to questions, tearful at times, denies nausea, SOB, pain, she is urinating a lot due to lasix, she is on a fluid restriction, not taking in much oral intake at this time. She is getting to bedside commode with 1 person assist. Objective - Vital Signs Vital signs: Vital Signs Temp 97.9 F 12/18/16 07:00 Pulse 84 12/18/16 07:51 Resp 16 12/18/16 07:00 BP 168/83 12/18/16 07:00 Pulse Ox 92 L 12/18/16 07:30 Intake & Output 12/17/16 12/18/16 12/18/16 18:59 06:59 18:59 Intake Total 290 50 Balance 290 50 Intake: IV 50 Cefepime 1 gm In Sodium 50 Chloride 0.9% 50 ml @ 100 mls/hr IVPB BID MK Rx#: [id number] Intake, IV Titration 50 Amount Cefepime 1 gm In Sodium 50 Chloride 0.9% 50 ml @ 100 mls/hr IVPB BID MK Rx#: [id number] Oral 240 Other: Voiding Method Toilet Toilet Toilet # Voids 2 2 - Constitutional General appearance: Present: average body habitus, cooperative - EENT Eyes: Present: anicteric sclerae, normal appearance ENT: Present: hearing grossly normal - Respiratory Details: pt is putting nasal cannula in mouth due to recent cautery of the nose Respiratory: bilateral: diminished (weak inspiratory effort) - Cardiovascular Heart sounds: normal: S1, S2 - Gastrointestinal General gastrointestinal: Present: normal bowel sounds, soft - Musculoskeletal Musculoskeletal: Present: generalized weakness - Psychiatric Psychiatric: Present: A&O x's 3. Absent: appropriate affect, intact judgment & insight - Labs CBC & Chem 7: 12/18/16 05:30 12/18/16 05:30 Labs: Abnormal Lab Results - Last 24 Hours (Table) 12/17/16 12/17/16 12/18/16 Range/Units 17:24 19:54 05:30 WBC 45.3 H* (3.8-10.6) k/uL RBC 2.72 L (3.80-5.40) m/uL Hgb 8.8 L (11.4-16.0) gm/dL Hct 27.4 L (34.0-46.0) % MCV 100.8 H (80.0-100.0) fL RDW 17.9 H (11.5-15.5) % Plt Count 65 L D (150-450) k/uL Neutrophils # (Manual) 27.60 H (1.3-7.7) k/uL Monocytes # (Manual) 3.62 H (0-1.0) k/uL Metamyelocytes # (Man) 5.44 H (0) k/uL Myelocytes # (Manual) 5.89 H (0) k/uL Sodium (137-145) mmol/L Chloride (98-107) mmol/L Carbon Dioxide (22-30) mmol/L BUN (7-17) mg/dL Glucose (74-99) mg/dL POC Glucose (mg/dL) 154 H 164 H (75-99) mg/dL 12/18/16 12/18/16 12/18/16 Range/Units 05:30 07:30 11:21 WBC (3.8-10.6) k/uL RBC (3.80-5.40) m/uL Hgb (11.4-16.0) gm/dL Hct (34.0-46.0) % MCV (80.0-100.0) fL RDW (11.5-15.5) % Plt Count (150-450) k/uL Neutrophils # (Manual) (1.3-7.7) k/uL Monocytes # (Manual) (0-1.0) k/uL Metamyelocytes # (Man) (0) k/uL Myelocytes # (Manual) (0) k/uL Sodium 135 L (137-145) mmol/L Chloride 97 L (98-107) mmol/L Carbon Dioxide 33 H (22-30) mmol/L BUN 25 H (7-17) mg/dL Glucose 170 H (74-99) mg/dL POC Glucose (mg/dL) 162 H 153 H (75-99) mg/dL Microbiology - Last 24 Hours (Table) 12/12/16 21:28 Blood Culture - Preliminary Blood No Growth after 120 hours - Imaging and Cardiology Chest x-ray: report reviewed Venous US: report reviewed Assessment and Plan (1) Anterior epistaxis Narrative/Plan: Due to thrombocytopenia from chemo drugs. No recurrence since transfusion of platelets Status: Acute (2) Bicytopenia Narrative/Plan: Persistent, no transfusions needed at this time, no asa, NSAIDs, anticoagulation at this time Status: Acute (3) Lung cancer Narrative/Plan: Patient is status post second cycle of carboplatin and Gemzar days 1 and 8, she was not able to tolerate day 8 of the first cycle. Daughter stated to me today that she doubts if pt is going to continue on with any further chemotherapy. We will address this further after pt has had an opportunity to recover from her current situation. If no further treatment is wanted it would be recommended that pt and family utilize hospice but, we will have this discussion when pt is more alert. Status: Acute (4) COPD with exacerbation Status: Acute (5) Leukocytosis Narrative/Plan: Secondary to GCSF administered 10 days ago, CBC daily for monitoring. Status: Acute
[2016-12-18 17:12] LABS: Glucose,Whole Blood 187 mg/dL (75-99)
[2016-12-18 20:26] LABS: Glucose,Whole Blood 209 mg/dL (75-99)
[2016-12-18] MEDS: FLUCONAZOLE 100 MG TAB PO SCH (20:30)
[2016-12-19 07:09] LABS: Anion Gap 3 mmol/L; Blood Urea Nitrogen 27 mg/dL (7-17); Calcium 8.8 mg/dL (8.4-10.2); Carbon Dioxide 36 mmol/L (22-30); Chloride 95 mmol/L (98-107); Glucose 103 mg/dL (74-99); Non-African American GFR(MDRD) >60 (>60 ml/min/1.73 sqM); Potassium 3.5 mmol/L (3.5-5.1); Sodium 134 mmol/L (137-145)
[2016-12-19 07:10] LABS: Anisocytosis Slight; CH 31.7; CHCM 31.7; HCT 26.7 % (34.0-46.0); HGB 8.6 gm/dL (11.4-16.0); Immature Gran Flag Marked; MCH 32.4 pg (25.0-35.0); MCHC 32.3 g/dL (31.0-37.0); MCV 100.4 fL (80.0-100.0); Macrocytosis Slight; Mean Platelet Volume 9.5; RBC 2.66 m/uL (3.80-5.40); WBC (Perox) 51.12
[2016-12-19] MEDS: BUDESONIDE 1 MG/2 ML NEBU INHALATION SCH ×2 (07:13→07:18)
[2016-12-19] MEDS: IPRATROPIUM-ALBUTEROL 3 ML NEB INHALATION SCH ×3 (07:13→11:08)
[2016-12-19] MEDS: FORMOTEROL FUMARATE 20 MCG/2 ML NEBU INHALATION SCH ×2 (07:13→07:18)
[2016-12-19 07:26] LABS: Glucose,Whole Blood 164 mg/dL (75-99)
[2016-12-19 07:39] LABS: Add Differential Manual Differential
[2016-12-19 07:47] LABS: Band Neutrophils % 15 %; Manual Review Performed; Metamyelocytes % 8 %; Myelocytes % 10 %; Nucleated Red Blood Cells 1 /100 WBC (0-0); Total Cells Counted 200; WBC 50.1 k/uL (3.8-10.6)
[2016-12-19 07:48] LABS: Toxic Granulation Present
[2016-12-19 08:01] VITALS: BP 143/74; PULSE 83; RESP 16; TEMP 97.3
[2016-12-19] MEDS: METOPROLOL TARTRATE 12.5 MG TAB PO SCH (09:07)
[2016-12-19] MEDS: predniSONE 20 MG TAB PO SCH (09:07)
[2016-12-19] MEDS: LORATADINE 10 MG TAB PO SCH (09:07)
[2016-12-19] MEDS: FUROSEMIDE 10 MG/ML 4 ML VIAL IV SCH (09:07)
[2016-12-19] MEDS: LACTULOSE 20 GM/30 ML CUP PO SCH (09:07)
[2016-12-19] MEDS: INSULIN LISPRO (humaLOG) 300 UNIT/3 ML VIAL SQ SCH (09:07)
[2016-12-19] MEDS: FAMOTIDINE 20 MG TAB PO SCH (09:07)
[2016-12-19] MEDS: CEFEPIME 1 GM in SODIUM CHLORIDE 0.9% 50 ML IVPB SCH (09:08)
[2016-12-19] MEDS: MECLIZINE 12.5 MG TAB PO SCH (09:09)
[2016-12-19] MEDS: HYDROcodone/APAP 10-325MG 1 EACH TAB PO PRN (09:54)
--- NOTE | 2016-12-19 10:07 | P.PN ---
Subjective Progress Note Date: 12/18/16 Personal being dictated for Dr. Saini. Interval history: This a 76-year-old female with history of lung cancer admitted with acute exacerbation of COPD, possibly bronchopneumonia, thrombocytopenia, leukocytosis and multiple other medical issues. Maintained on nebulized bronchodilators, steroids, fluid restrictions, Lasix with significant clinical improvement. Increased confusion today with less coordination, wandering around. Family stating they do not want to proceed with any more chemotherapy nor proceed with ECF at this time. Generalized weakness, requiring 1 person assist. Currently on oral steroids. Diet intake fair, increased with encouragement. WBC 27, recent received GCSF. Denies chest pain, palpitations or increasing shortness of breath. Objective - Vital Signs Vital signs: Vital Signs Temp 97.8 F 12/18/16 15:00 Pulse 88 12/18/16 15:38 Resp 20 12/18/16 15:00 BP 153/74 12/18/16 15:00 Pulse Ox 95 12/18/16 15:30 Intake & Output 12/17/16 12/18/16 12/18/16 18:59 06:59 18:59 Intake Total 290 50 Balance 290 50 Intake: IV 50 Cefepime 1 gm In Sodium 50 Chloride 0.9% 50 ml @ 100 mls/hr IVPB BID MK Rx#: [id number] Intake, IV Titration 50 Amount Cefepime 1 gm In Sodium 50 Chloride 0.9% 50 ml @ 100 mls/hr IVPB BID MK Rx#: [id number] Oral 240 Other: Voiding Method Toilet Toilet Toilet # Voids 2 2 - Exam PHYSICAL EXAM: VITAL SIGNS: As above GENERAL: Sitting up in bed, no acute distress, pleasantly confused HEENT: Conjunctivae normal. eyes normal. NECK: No JVD. No thyroid enlargement. CARDIOVASCULAR: S1, S2 muffled. No murmur RESPIRATION: Breath sounds diminished in the bases. Occasional scattered rhonchi, no crackles. ABDOMEN: Soft, nontender . No guarding. no masses palpable.Bowel sounds heard. LEGS: Improving edema of bilateral lower legs PSYCHIATRY: Alert and oriented -2, confused. NERVOUS SYSTEM: Cranial N 2-12 grossly normal. Moves all 4 limbs. Diffuse weakness No focal deficits. No sensory deficit. - Labs CBC & Chem 7: 12/19/16 05:42 12/19/16 05:42 Labs: Abnormal Lab Results - Last 24 Hours (Table) 12/17/16 12/17/16 12/18/16 Range/Units 17:24 19:54 05:30 WBC 45.3 H* (3.8-10.6) k/uL RBC 2.72 L (3.80-5.40) m/uL Hgb 8.8 L (11.4-16.0) gm/dL Hct 27.4 L (34.0-46.0) % MCV 100.8 H (80.0-100.0) fL RDW 17.9 H (11.5-15.5) % Plt Count 65 L D (150-450) k/uL Neutrophils # (Manual) 27.60 H (1.3-7.7) k/uL Monocytes # (Manual) 3.62 H (0-1.0) k/uL Metamyelocytes # (Man) 5.44 H (0) k/uL Myelocytes # (Manual) 5.89 H (0) k/uL Sodium (137-145) mmol/L Chloride (98-107) mmol/L Carbon Dioxide (22-30) mmol/L BUN (7-17) mg/dL Glucose (74-99) mg/dL POC Glucose (mg/dL) 154 H 164 H (75-99) mg/dL 12/18/16 12/18/16 12/18/16 Range/Units 05:30 07:30 11:21 WBC (3.8-10.6) k/uL RBC (3.80-5.40) m/uL Hgb (11.4-16.0) gm/dL Hct (34.0-46.0) % MCV (80.0-100.0) fL RDW (11.5-15.5) % Plt Count (150-450) k/uL Neutrophils # (Manual) (1.3-7.7) k/uL Monocytes # (Manual) (0-1.0) k/uL Metamyelocytes # (Man) (0) k/uL Myelocytes # (Manual) (0) k/uL Sodium 135 L (137-145) mmol/L Chloride 97 L (98-107) mmol/L Carbon Dioxide 33 H (22-30) mmol/L BUN 25 H (7-17) mg/dL Glucose 170 H (74-99) mg/dL POC Glucose (mg/dL) 162 H 153 H (75-99) mg/dL Microbiology - Last 24 Hours (Table) 12/12/16 21:28 Blood Culture - Preliminary Blood No Growth after 120 hours Assessment and Plan Plan: 1. COPD acute exacerbation with right upper and perihilar pneumonia, possible bronchopneumonia, possibly gram-negative. 2. [ Thrombocytopenia secondary to malignancy improving]. 3. [ Leukocytosis, secondary to GCSF, steroids. 4. [ Gait dysfunction]. 5. [ Lung cancer, status post chemotherapy]. 6. [ Bilateral leg edema, multifactorial]. 7. [ Anemia secondary to chemotherapy, malignancy]. Plan: Continue on current medication regime , nebulized bronchodilators, oral steroids,monitoring and symptomatic treatment. Family as mentioned above discussing no further chemotherapy, receiving to take patient home once confusion improves. Discharge planning in progress. Consider hospice informational meeting after family further discusses with oncology. Discharge planning in progress for tomorrow. The impression and plan of care has been dictated as directed as a scribe . : I performed a H&P examination of this patient and discussed the same with the dictator. I agree with the dictator's note. Any additional findings/opinions/ etc. will be noted.
[2016-12-19 11:10] LABS: Glucose,Whole Blood 146 mg/dL (75-99)
--- NOTE | 2016-12-19 11:16 | P.DS ---
Providers Date of admission: 12/12/16 22:54 Expected date of discharge: 12/19/16 Attending physician: Aminata Pinto Consults: 12/12/16 22:49 Consult Physician Routine Consulting Provider: Delfino Shaver Consult Reason/Comments: thrombocytopenia, anemia, lung cancer Do you want consulting provider notified?: Yes Primary care physician: Eloisa Hinojosa [facility] Course: Final Diagnoses: 1. COPD acute exacerbation with right upper and perihilar pneumonia, possible bronchopneumonia, possibly gram-negative. 2. [ Thrombocytopenia secondary to malignancy improving]. 3. [ Leukocytosis, secondary to GCSF, steroids. 4. [ Gait dysfunction]. 5. [ Lung cancer, status post chemotherapy]. 6. [ Bilateral leg edema, multifactorial]. 7. [ Anemia secondary to chemotherapy, malignancy]. 8. Acute epistaxis secondary to thrombocytopenia, status post platelet transfusion, no recurrence. Hospital course:This is a 76-year-old female with history of lung cancer admitted with acute exacerbation of COPD, possibly bronchopneumonia, thrombocytopenia, leukocytosis and multiple other medical issues. Maintained on nebulized bronchodilators, steroids, fluid restrictions, Lasix with significant clinical improvement. Family stating they do not want to proceed with any more chemotherapy nor proceed with ECF at this time. Generalized weakness, requiring 1 person assist. Leukocytosis, recently received GCSF. Informational hospice consult declined by family at this time. Patient already preestablished with [facility], outpatient physical therapy. Cleared by oncology for discharge. Patient is being discharged home with daughter in a stable condition with guarded prognosis. The impression and plan of care has been dictated as directed as a scribe. : I performed a H&P examination of this patient and discussed the same with the dictator. I agree with the dictator's note. Any additional findings/opinions/ etc. will be noted. Patient Condition at Discharge: Stable Plan - Discharge Summary New Discharge Prescriptions: New Metoprolol Tartrate [Lopressor] 12.5 mg PO BID #60 tab predniSONE 10 mg PO DIRECTED #9 tab Cefuroxime Axetil [Ceftin] 500 mg PO BID #10 tab Fluconazole [Diflucan] 100 mg PO Q24H #5 tab Furosemide [Lasix] 20 mg PO DAILY #30 tab Continue Fluticasone/Salmeterol [Advair 250-50 Diskus] 1 puff INHALATION RT-BID Meclizine [Antivert] 12.5 mg PO BID Ranitidine HCl [Zantac] 150 mg PO BID Liver Detoxifier 1 tab PO TID Lactulose 10 gm PO BID Prochlorperazine [Compazine] 5 mg PO Q6HR PRN PRN Reason: Nausea Ipratropium/Albuterol Sulfate [Combivent Respimat Inhaler] 1 puff INHALATION RT-QID PRN PRN Reason: Shortness Of Breath Loratadine [Claritin] 10 mg PO DAILY Cranberry Fruit Extract [Cranberry] 500 mg PO DAILY Budesonide [Pulmicort] 0.5 mg INHALATION RT-BID ALPRAZolam [Xanax] 1 mg PO TID PRN #20 PRN Reason: Anxiety/Insomnia HYDROcodone/APAP 10-325MG [[place] 10-325] 1 tab PO TID PRN #20 PRN Reason: Pain Meclizine [Antivert] 12.5 mg PO DAILY PRN #0 PRN Reason: Vertigo Changed Ipratropium-Albuterol Nebulize [Duoneb 0.5 mg-3 mg/3 ml Soln] 3 ml INHALATION RT-QID #0 Discharge Medication List Fluticasone/Salmeterol [Advair 250-50 Diskus] 1 puff INHALATION RT-BID 11/23/16 [History] Lactulose 10 gm PO BID 11/23/16 [History] Liver Detoxifier 1 tab PO TID 11/23/16 [History] Meclizine [Antivert] 12.5 mg PO BID 11/23/16 [History] Ranitidine HCl [Zantac] 150 mg PO BID 11/23/16 [History] Budesonide [Pulmicort] 0.5 mg INHALATION RT-BID 12/12/16 [History] Cranberry Fruit Extract [Cranberry] 500 mg PO DAILY 12/12/16 [History] Ipratropium/Albuterol Sulfate [Combivent Respimat Inhaler] 1 puff INHALATION RT- QID PRN 12/12/16 [History] Loratadine [Claritin] 10 mg PO DAILY 12/12/16 [History] Prochlorperazine [Compazine] 5 mg PO Q6HR PRN 12/12/16 [History] ALPRAZolam [Xanax] 1 mg PO TID PRN #20 12/18/16 [Rx] Cefuroxime Axetil [Ceftin] 500 mg PO BID #10 tab 12/18/16 [Rx] HYDROcodone/APAP 10-325MG [[place] 10-325] 1 tab PO TID PRN #20 12/18/16 [Rx] Ipratropium-Albuterol Nebulize [Duoneb 0.5 mg-3 mg/3 ml Soln] 3 ml INHALATION RT -QID #0 12/18/16 [Rx] Meclizine [Antivert] 12.5 mg PO DAILY PRN #0 12/18/16 [Rx] Metoprolol Tartrate [Lopressor] 12.5 mg PO BID #60 tab 12/18/16 [Rx] predniSONE 10 mg PO DIRECTED #9 tab 12/18/16 [Rx] Fluconazole [Diflucan] 100 mg PO Q24H #5 tab 12/19/16 [Rx] Furosemide [Lasix] 20 mg PO DAILY #30 tab 12/19/16 [Rx] Follow up Appointment(s)/Referral(s): Hipolito Schaefer MD [STAFF PHYSICIAN] - 1 Week Claudia Rodriguez PAC [REFERRING] - 12/26/16 Anderson Cardenas MD [STAFF PHYSICIAN] - 12/26/16 (as previously scheduled. ) Ambulatory/Diagnostic Orders: Complete Blood Count w/diff [LAB.AMB] Time Frame: 3 Days, Location: Determined By Patient Activity/Diet/Wound Care/Special Instructions: Home with daughter DIet: cardiac, 1400 cc fluid restriction Activity: as tolerated cbc,bmp in 3 days
== END 2016-12-19 13:40 | disposition home or self-care (01) | DRG 178 ==
LOC: EC 19:51 → 5ONC 22:54
PROVIDERS: ADMIT Internal Medicine; ATTEND Internal Medicine
PROC: 30233R1 Transfusion of Nonautologous Platelets into Peripheral Vein, Percutaneous Approach (ICD-10-PCS; principal; 2016-12-14)
PROC: 30233N1 Transfusion of Nonautologous Red Blood Cells into Peripheral Vein, Percutaneous Approach (ICD-10-PCS; 2016-12-14)
DX: J15.6 Pneumonia due to other Gram-negative bacteria (principal); J44.0 Chronic obstructive pulmonary disease with (acute) lower respiratory infection; J96.11 Chronic respiratory failure with hypoxia; K76.6 Portal hypertension; D69.6 Thrombocytopenia, unspecified; C34.90 Malignant neoplasm of unspecified part of unspecified bronchus or lung; Z99.81 Dependence on supplemental oxygen; J44.1 Chronic obstructive pulmonary disease with (acute) exacerbation; D63.0 Anemia in neoplastic disease; R26.9 Unspecified abnormalities of gait and mobility; R60.0 Localized edema; T45.1X5A Adverse effect of antineoplastic and immunosuppressive drugs, initial encounter; K21.9 Gastro-esophageal reflux disease without esophagitis; R04.0 Epistaxis; R53.1 Weakness; Z96.651 Presence of right artificial knee joint; J20.9 Acute bronchitis, unspecified; R00.0 Tachycardia, unspecified; Z79.52 Long term (current) use of systemic steroids; Z79.891 Long term (current) use of opiate analgesic; Z91.041 Radiographic dye allergy status; Z87.891 Personal history of nicotine dependence; Z80.9 Family history of malignant neoplasm, unspecified; Z79.899 Other long term (current) drug therapy
CPT/HCPCS: 30901; 36415; 71020; 80048; 80053; 81001; 81003; 82140; 82550; 82553; 83036; 83735; 84100; 84443; 84484; 85025; 85610; 85730; 86850; 86860; 86870; 86880; 86885; 86900; 86901; 86902; 86920; 87040; 87070; 87086; 87205; 87324; 93005; 93970; 94640; 94760; 96361; 96365; 96375; 99285

== ENCOUNTER 2017-02-01 15:13 | Emergency (ER) | payer MEDICARE, OTHER ==
[2017-02-01 15:22] VITALS: RESP 16
[2017-02-01] MEDS ORDERED: ALPRAZolam 0.25 MG TAB PO STA (15:55)
[2017-02-01] MEDS ORDERED: SODIUM CHLORIDE 0.9% 500 ML IV STA (15:55)
--- NOTE | 2017-02-01 16:07 | ED ---
General Adult HPI - General Chief complaint: Recheck/Abnormal Lab/Rx Stated complaint: Ca PATIENT, ANXIETY, SICK Time Seen by Provider: 02/01/17 15:36 Source: patient Mode of arrival: wheelchair Limitations: no limitations - History of Present Illness Initial comments: 76-year-old female with past medical history of lung cancer (last chemotherapy December 07) with right lower lobectomy, COPD on 2 L home O2, unknown liver disease, GERD, hypertension, recurrent pneumonia with recent admission on January 02 through the , and recently finished 2 courses of antibiotics (first augmentin then ceftin) followed by a prednisone taper over the last month, presented for evaluation of anxiety. She states that she has been feeling anxious over the last week and has home Xanax however hasn't been taking it consistently. She states having some diarrhea as well which raised concern for C. diff given a past history of C. diff infection and recent antibiotic use, however a stool sample was sent last week and was negative. She denies any other associated symptoms. - Related Data Home Medications Medication Instructions Recorded Confirmed Fluticasone/Salmeterol [Advair 1 puff INHALATION RT-BID 11/23/16 02/01/17 250-50 Diskus] Lactulose 10 gm PO BID 11/23/16 02/01/17 Liver Detoxifier 1 tab PO TID 11/23/16 02/01/17 Meclizine [Antivert] 12.5 mg PO BID PRN 11/23/16 02/01/17 Ranitidine HCl [Zantac] 150 mg PO BID 11/23/16 02/01/17 Budesonide [Pulmicort] 0.5 mg INHALATION RT-BID 12/12/16 02/01/17 Cranberry Fruit Extract [Cranberry] 500 mg PO DAILY 12/12/16 02/01/17 Metoprolol Tartrate [Lopressor] 12.5 mg PO BID 01/02/17 02/01/17 HYDROcodone/APAP 10-325MG [[place] 1 tab PO Q6HR PRN 02/01/17 02/01/17 10-325] Previous Rx's Medication Instructions Recorded ALPRAZolam [Xanax] 1 mg PO TID PRN #20 12/18/16 Allergies Allergy/AdvReac Type Severity Reaction Status Date / Time adhesive tape Allergy Rash/Hives Verified 02/01/17 15:37 Iodinated Contrast- Oral and Allergy Anaphylaxis Verified 02/01/17 15:37 IV Dye Review of Systems ROS Statement: Those systems with pertinent positive or pertinent negative responses have been documented in the HPI. ROS Other: All systems not noted in ROS Statement are negative. Constitutional: Denies: fever, chills, weakness, weight change, night sweats Eyes: Denies: eye pain, eye discharge, vision change ENT: Denies: ear pain, throat pain, congestion Respiratory: Denies: cough, dyspnea, wheezes, hemoptysis, stridor Cardiovascular: Denies: chest pain, palpitations, dyspnea on exertion, orthopnea , edema, syncope Endocrine: Denies: fatigue, polydipsia, polyuria Gastrointestinal: Reports: diarrhea. Denies: abdominal pain, nausea, vomiting, constipation, hematemesis, melena, hematochezia Genitourinary: Denies: urgency, dysuria, frequency, hematuria Musculoskeletal: Denies: back pain, arthralgia, myalgia Skin: Denies: rash, lesions Neurological: Denies: headache, weakness Psychiatric: Reports: anxiety. Denies: depression, auditory hallucinations, visual hallucinations, homicidal thoughts, suicidal thoughts Hematological/Lymphatic: Reports: easy bruising. Denies: easy bleeding Past Medical History Past Medical History: Cancer, COPD, GERD/Reflux, Hypertension Additional Past Medical History / Comment(s): Recurrent R lung cancer first diagnosed 11/2013-had surgery (R lower lobectomy)-was told there was one spot too close to her heart to resect and then follow up 6 months later showed no cancer, then recently rediagnosed-had 2 chemo treatments and did not tolerate- became ill/pneumonias/thrombocytopenia/epistaxis/anemia. Other hx: O2 at 2L/ NC at HS, generalized chronic pain especially lately in L shoulder, vertigo, recent problem with bilateral eye vision decreasing and drainage from R eye, recent lower leg edema-was wearing leg wraps-currently has small pinpoint red rash bilateral lower legs. History of Any Multi-Drug Resistant Organisms: C-DIFF MDRO Source:: nov 2016 Past Surgical History: Back Surgery, Joint Replacement, Orthopedic Surgery Additional Past Surgical History / Comment(s): Bronchoscopy with bx, liver bx, R lung bx, cervical fusion, 3 lower back surgeies, R knee partial replacement then total replacement, L knee arthroscopy, bilateral shoulder rotator cuff repairs, L total shoulder, port a cath, EGD/colonoscopy. Past Anesthesia/Blood Transfusion Reactions: No Reported Reaction Past Psychological History: No Psychological Hx Reported Smoking Status: Former smoker Past Alcohol Use History: None Reported, Unable to Obtain Past Drug Use History: None Reported, Unable to Obtain - Past Family History Mother Family Medical History: Cancer Additional Family Medical History / Comment(s): Mother had brain cancer. Brother(s) Family Medical History: Cancer Additional Family Medical History / Comment(s): x2 General Exam Limitations: no limitations General appearance: alert, in no apparent distress Head exam: Present: atraumatic, normocephalic, normal inspection Eye exam: Present: normal appearance, PERRL, EOMI. Absent: scleral icterus, conjunctival injection, periorbital swelling ENT exam: Present: normal exam, mucous membranes moist Neck exam: Present: normal inspection. Absent: tenderness, meningismus, lymphadenopathy Respiratory exam: Present: normal lung sounds bilaterally. Absent: respiratory distress, wheezes, rales, rhonchi, stridor Cardiovascular Exam: Present: regular rate, normal rhythm, normal heart sounds. Absent: systolic murmur, diastolic murmur, rubs, gallop, clicks GI/Abdominal exam: Present: soft, normal bowel sounds. Absent: distended, tenderness, guarding, rebound, rigid Rectal exam: Present: deferred Extremities exam: Present: normal inspection, full ROM, normal capillary refill. Absent: tenderness, pedal edema, joint swelling, calf tenderness Back exam: Present: normal inspection, full ROM. Absent: tenderness Neurological exam: Present: alert, oriented X3, CN II-XII intact Psychiatric exam: Present: normal affect, normal mood Skin exam: Present: warm, dry, intact, normal color. Absent: rash Course Vital Signs 02/01/17 02/01/17 02/01/17 15:18 17:32 18:06 Temperature 98.7 F 98.2 F Pulse Rate 80 84 Respiratory 16 16 Rate Blood Pressure 141/100 165/83 O2 Sat by Pulse 97 92 L Oximetry EKG Findings - EKG Comments: EKG Findings:: normal sinus rhythm with ventricular rate 79, LINDA 142, QRS 88, QT /QTC 348/399. Medical Decision Making - Medical Decision Making 76-year-old female presenting for evaluation of generalized anxiety. There is also some associated diarrhea however she was recently tested for C. diff and found to be negative. Physical examination reveals no significant abnormalities. Given her history of recent pneumonias as well as recurrent lung cancer we'll check baseline labs, chest x-ray, urinalysis. Patient is also clinically dry and we'll provide with an IV fluid bolus. We'll also give her a dose of her Xanax which she is prescribed at home but hasn't taking it today. Labs reveal mild thrombocytopenia which is actually increased from her previous values. No leukocytosis noted. Mild hyponatremia also evident which is being addressed by IV fluids but is also consistent with her baseline diagnoses. Transaminitis is also at baseline. Urinalysis shows no UTI. Chest x-ray shows no change from previous studies. reevaluated and had improvement in her presenting symptoms. She was informed of all values and through shared decision making it was determined that should be discharged with instructions to follow-up with her primary care physician. Further advised to return if symptoms should worsen or persist. Patient acknowledged understanding of all information provided and agreed with this plan of care. - Lab Data Result diagrams: 02/01/17 16:30 02/01/17 16:30 Lab Results 02/01/17 02/01/17 02/01/17 Range/Units 16:30 16:30 16:30 WBC 8.1 (3.8-10.6) k/uL RBC 3.54 L (3.80-5.40) m/uL Hgb 12.0 (11.4-16.0) gm/dL Hct 37.8 (34.0-46.0) % MCV 106.7 H (80.0-100.0) fL MCH 34.0 (25.0-35.0) pg MCHC 31.8 (31.0-37.0) g/dL RDW 17.4 H (11.5-15.5) % Plt Count 97 L (150-450) k/uL Neutrophils % 75 % Lymphocytes % 14 % Monocytes % 9 % Eosinophils % 1 % Basophils % 0 % Neutrophils # 6.0 (1.3-7.7) k/uL Lymphocytes # 1.2 (1.0-4.8) k/uL Monocytes # 0.7 (0-1.0) k/uL Eosinophils # 0.1 (0-0.7) k/uL Basophils # 0.0 (0-0.2) k/uL Manual Slide Review Performed Anisocytosis Slight Macrocytosis Marked Ovalocytes Present Sodium 130 L (137-145) mmol/L Potassium 4.3 (3.5-5.1) mmol/L Chloride 104 (98-107) mmol/L Carbon Dioxide 22 (22-30) mmol/L Anion Gap 4 mmol/L BUN 13 (7-17) mg/dL Creatinine 0.70 (0.52-1.04) mg/dL Est GFR (MDRD) Af Amer >60 (>60 ml/min/1.73 sqM) Est GFR (MDRD) Non-Af >60 (>60 ml/min/1.73 sqM) Glucose 105 H (74-99) mg/dL Calcium 9.1 (8.4-10.2) mg/dL Total Bilirubin 1.0 (0.2-1.3) mg/dL AST 45 H (14-36) U/L ALT 43 (9-52) U/L Alkaline Phosphatase 276 H (38-126) U/L Total Protein 6.1 L (6.3-8.2) g/dL Albumin 2.9 L (3.5-5.0) g/dL Lipase 211 (23-300) U/L Urine Color Yellow Urine Appearance Clear (Clear) Urine pH 6.5 (5.0-8.0) Ur Specific [place] 1.014 (1.001-1.035) Urine Protein Negative (Negative) Urine Glucose (UA) Negative (Negative) Urine Ketones Negative (Negative) Urine Blood Negative (Negative) Urine Nitrite Negative (Negative) Urine Bilirubin Negative (Negative) Urine Urobilinogen <2.0 (<2.0) mg/dL Ur Leukocyte Esterase Small H (Negative) Urine RBC 2 (0-5) /hpf Urine WBC 4 (0-5) /hpf Ur Squamous Epith Cells 4 (0-4) /hpf Urine Bacteria Few H (None) /hpf Urine Mucus Rare H (None) /hpf Disposition Clinical Impression: Anxiety, Hyponatremia, Thrombocytopenia, Transaminitis Disposition: HOME SELF-CARE Condition: Stable Instructions: Anxiety (ED) Referrals: Eloisa Hinojosa III, MD [Primary Care Provider] - 1-2 days Time of Disposition: 17:44
[2017-02-01 16:51] LABS: Anisocytosis Slight; Basophils % (A) 0 %; CH 34.1; CHCM 32.1; Eosinophils # (A) 0.1 k/uL (0-0.7); Eosinophils % (A) 1 %; HCT 37.8 % (34.0-46.0); HDW 2.76; Luc # (Auto) 0.08; Luc % (Auto) 1; Lymphocytes # (A) 1.2 k/uL (1.0-4.8); Lymphocytes % (A) 14 %; MCHC 31.8 g/dL (31.0-37.0); MCV 106.7 fL (80.0-100.0); Macrocytosis Marked; Mean Platelet Volume 9.1; Monocytes # (A) 0.7 k/uL (0-1.0); Monocytes % (A) 9 %; Neutrophils % (A) 75 %; RBC 3.54 m/uL (3.80-5.40); RDW 17.4 % (11.5-15.5); WBC 8.1 k/uL (3.8-10.6); WBC (Perox) 8.49
[2017-02-01 16:54] LABS: ALT 43 U/L (9-52); AST 45 U/L (14-36); Alkaline Phosphatase 276 U/L (38-126); Anion Gap 4 mmol/L; Blood Urea Nitrogen 13 mg/dL (7-17); Calcium 9.1 mg/dL (8.4-10.2); Carbon Dioxide 22 mmol/L (22-30); Chloride 104 mmol/L (98-107); Glucose 105 mg/dL (74-99); Non-African American GFR(MDRD) >60 (>60 ml/min/1.73 sqM); Potassium 4.3 mmol/L (3.5-5.1); Sodium 130 mmol/L (137-145); Total Protein 6.1 g/dL (6.3-8.2)
--- NOTE | 2017-02-01 16:58 | XR ---
EXAMINATION TYPE: XR chest 2V DATE OF EXAM: 02/01/2017 COMPARISON: 01/03/2017 HISTORY: Diarrhea. Anxiety. Lung cancer TECHNIQUE: Frontal and lateral views of the chest are obtained. FINDINGS: There is no heart failure. There is a 4 cm masslike density at the right pulmonary hilum. There is right central venous catheter with tip in the superior vena cava. There is left shoulder pro sthesis. There is some blunting of right costophrenic angle. There is pleural thickening on the right side. There is patchy infiltrate in the right upper lobe. Left lung is fairly clear. Cervical spine surgery is noted. IMPRESSION: Right upper lobe infiltrate. Right pleural effusion and pleural thickening. Right hilar mass. No heart failure. No adverse change compared to last exam.
[2017-02-01 17:02] LABS: Appearance,Urine Clear (Clear); Bacteria,Urine Few /hpf; Bilirubin,Urine Negative (Negative); Glucose,Urine (UA) Negative (Negative); Ketones,Urine Negative (Negative); Leukocyte Esterase,Urine Small (Negative); Mucus,Urine Rare /hpf; Nitrite,Urine Negative (Negative); PH, Urine 6.5 (5.0-8.0); Particle Count 5955; Protein,Urine Negative (Negative); RBC,Urine 2 /hpf (0-5); Specific Gravity,Urine 1.014 (1.001-1.035); Squamous Epithelial Cell,Urine 4 /hpf (0-4); UA Billing (MACRO vs. MICRO) MICRO; Urobilinogen,Urine <2.0 mg/dL (<2.0); WBC,Urine 4 /hpf (0-5)
[2017-02-01 17:16] LABS: Manual Review Performed; Ovalocytes Present
[2017-02-01 17:33] VITALS: BP 165/83; PULSE 84
[2017-02-01 18:07] VITALS: TEMP 98.2
== END 2017-02-01 17:55 | disposition home or self-care (01) ==
LOC: EC 15:13
DX: F41.9 Anxiety disorder, unspecified (principal); E78.1 Pure hyperglyceridemia; D69.6 Thrombocytopenia, unspecified; E87.1 Hypo-osmolality and hyponatremia; R74.0 Nonspecific elevation of levels of transaminase and lactic acid dehydrogenase [LDH]; J44.9 Chronic obstructive pulmonary disease, unspecified; K21.9 Gastro-esophageal reflux disease without esophagitis; I10 Essential (primary) hypertension; Z79.51 Long term (current) use of inhaled steroids; Z79.899 Other long term (current) drug therapy; Z91.048 Other nonmedicinal substance allergy status; Z91.041 Radiographic dye allergy status; Z85.118 Personal history of other malignant neoplasm of bronchus and lung; Z87.891 Personal history of nicotine dependence
CPT/HCPCS: 36415; 71020; 80053; 81001; 83690; 85025; 93005; 96365; 99284

== ENCOUNTER → 2017-02-09 | Outpatient (CLI) | payer MEDICARE, OTHER ==
--- NOTE | 2017-02-09 15:26 | XR ---
EXAMINATION TYPE: XR chest 2V DATE OF EXAM: 02/09/2017 COMPARISON: 02/01/2017 TECHNIQUE: PA and lateral views submitted. HISTORY: Chest pain FINDINGS: Right upper lobe infiltrate and suspected mass or stable. Right-sided pleural effusion and consolidat ion lung base stable. Underlying COPD noted. Suspect previous surgery or trauma to the right clavicle . Hypertrophic and degenerative change of the spine. Postsurgical change involving the cervical spine and left shoulder and upper abdomen. Mediport catheter stable. IMPRESSION: 1. Stable right-sided areas of infiltrate and pleural effusion with underlying COPD and right hilar m ass..
== END | disposition home or self-care (01) ==
LOC: RADXRMAIN 14:50
DX: J90 Pleural effusion, not elsewhere classified (principal); J44.9 Chronic obstructive pulmonary disease, unspecified; R91.8 Other nonspecific abnormal finding of lung field
CPT/HCPCS: 71020

== ENCOUNTER → 2017-03-01 | Outpatient (CLI) | payer MEDICARE, OTHER | END | disposition home or self-care (01) | LOC: LABPRL 16:29 | PROVIDERS: ATTEND Nurse Practitioner Family | DX: R19.7 Diarrhea, unspecified (principal) | CPT/HCPCS: 87324 ==

== ENCOUNTER 2017-03-24 17:02 | Inpatient (IN) | payer MEDICARE, OTHER ==
[2017-03-24] MEDS ORDERED: IPRATROPIUM-ALBUTEROL 3 ML NEB INHALATION STA (17:08)
--- NOTE | 2017-03-24 17:11 | ED ---
General Adult HPI - General Stated complaint: Altered Mental Status Time Seen by Provider: 03/24/17 17:04 Source: EMS, RN notes reviewed, old records reviewed Mode of arrival: ambulatory Limitations: no limitations - History of Present Illness Initial comments: 76-year-old female brought in by EMS for altered mental status. Patient has history COPD, and stage IV lung cancer according to EMS. Patient is normally alert and oriented, she is only responsive to painful stimuli. Currently wear 2 L of home oxygen. Medical records will be reviewed, no history obtained from the patient. - Related Data Home Medications Medication Instructions Recorded Confirmed Lactulose 10 gm PO BID 11/23/16 03/24/17 Ranitidine HCl [Zantac] 150 mg PO BID 11/23/16 03/24/17 Budesonide [Pulmicort] 0.5 mg INHALATION RT-BID 12/12/16 03/24/17 Cranberry Fruit Extract [Cranberry] 500 mg PO DAILY 12/12/16 03/24/17 HYDROcodone/APAP 10-325MG [[place] 1 tab PO Q6HR PRN 02/01/17 03/24/17 10-325] Albuterol Nebulized [Ventolin 2.5 mg INHALATION Q6H PRN 03/11/17 03/24/17 Nebulized] guaiFENesin [Mucinex] 600 mg PO DAILY PRN 03/11/17 03/24/17 predniSONE See Taper PO DIRECTED 03/24/17 03/24/17 Previous Rx's Medication Instructions Recorded ALPRAZolam [Xanax] 1 mg PO TID PRN #20 12/18/16 Amoxic-Pot Clav 875-125Mg 1 tab PO Q12HR #20 tablet 03/15/17 [Augmentin 875-125] Folic Acid 1 mg PO DAILY@1200 #30 tab 03/15/17 Metoprolol Tartrate [Lopressor] 25 mg PO BID #0 03/15/17 Multivitamins, Thera [Multivitamin 1 each PO DAILY@1200 #30 tab 03/15/17 (formulary)] Thiamine [Vitamin B-1] 100 mg PO DAILY@1200 #30 tab 03/15/17 Allergies Allergy/AdvReac Type Severity Reaction Status Date / Time adhesive tape Allergy Rash/Hives Verified 03/11/17 18:28 Iodinated Contrast- Oral and Allergy Anaphylaxis Verified 03/11/17 18:28 IV Dye Review of Systems ROS Statement: Those systems with pertinent positive or pertinent negative responses have been documented in the HPI. ROS Other: All systems not noted in ROS Statement are negative. Limitations: ROS unobtainable due to patients medical condition Past Medical History Past Medical History: Cancer, COPD, GERD/Reflux, Hypertension Additional Past Medical History / Comment(s): Recurrent R lung cancer first diagnosed 11/2013-had surgery (R lower lobectomy)-was told there was one spot too close to her heart to resect and then follow up 6 months later showed no cancer, then recently rediagnosed-had 2 chemo treatments and did not tolerate- became ill/pneumonias/thrombocytopenia/epistaxis/anemia. Other hx: O2 at 2L/ NC at HS, generalized chronic pain especially lately in L shoulder, vertigo, recent problem with bilateral eye vision decreasing and drainage from R eye, recent lower leg edema-was wearing leg wraps-currently has small pinpoint red rash bilateral lower legs. History of Any Multi-Drug Resistant Organisms: C-DIFF Date of last positivie culture/infection: Stool MDRO Source:: 2016 Past Surgical History: Back Surgery, Joint Replacement, Orthopedic Surgery Additional Past Surgical History / Comment(s): Bronchoscopy with bx, liver bx, R lung bx, cervical fusion, 3 lower back surgeies, R knee partial replacement then total replacement, L knee arthroscopy, bilateral shoulder rotator cuff repairs, L total shoulder, port a cath, EGD/colonoscopy. Past Anesthesia/Blood Transfusion Reactions: No Reported Reaction Past Psychological History: No Psychological Hx Reported Smoking Status: Former smoker Past Alcohol Use History: None Reported, Unable to Obtain Past Drug Use History: None Reported, Unable to Obtain - Past Family History Mother Family Medical History: Cancer Additional Family Medical History / Comment(s): Mother had brain cancer. Brother(s) Family Medical History: Cancer Additional Family Medical History / Comment(s): x2 General Exam Limitations: no limitations General appearance: obtunded Head exam: Present: atraumatic, normocephalic Eye exam: Present: PERRL ENT exam: Present: mucous membranes dry Neck exam: Absent: meningismus Respiratory exam: Present: respiratory distress, wheezes, rhonchi Cardiovascular Exam: Present: normal rhythm, tachycardia GI/Abdominal exam: Present: soft, distended. Absent: tenderness, guarding Extremities exam: Present: other (Bruising and abrasion throughout bilateral lower extremities, very stages of healing. No active bleeding) Neurological exam: Absent: motor sensory deficit Skin exam: Present: warm, dry Course Vital Signs 03/24/17 03/24/17 03/24/17 17:04 17:22 17:31 Temperature 98.3 F Pulse Rate 67 101 H 102 H Respiratory 28 H Rate Blood Pressure 155/90 O2 Sat by Pulse 84 L Oximetry 03/24/17 03/24/17 03/24/17 18:08 19:10 20:10 Temperature Pulse Rate 111 H 110 H 83 Respiratory 22 20 18 Rate Blood Pressure 146/66 156/74 O2 Sat by Pulse 96 97 98 Oximetry EKG Findings - EKG Comments: EKG Findings:: EKG shows atrial flutter with variable AV block and PVC ventricular rate 113, castration 84, QTC 455, no ST segment elevation Medical Decision Making - Medical Decision Making 76-year-old female with history of stage IV lung cancer presenting with altered mental status, generalized this. Head CT is obtained, negative for acute intracranial pathology, chest x-ray shows relative increase in right lung mass. White blood cell count elevated 17.7, no focal infection identified. Hemoglobin 12.9, lactic acid mildly elevated 2.1, elevation in serum bili AST and ALT appears chronic and stable. Patient receives IV hydration for dehydration and lactic acidosis secondary to dehydration. She will be admitted to oncology floor for further evaluation and treatment. - Lab Data Result diagrams: 03/24/17 17:10 03/24/17 17:10 Lab Results 03/24/17 03/24/17 03/24/17 Range/Units 17:10 17:10 17:10 WBC 17.7 H (3.8-10.6) k/uL RBC 4.09 (3.80-5.40) m/uL Hgb 12.9 (11.4-16.0) gm/dL Hct 42.4 (34.0-46.0) % MCV 103.7 H (80.0-100.0) fL MCH 31.6 (25.0-35.0) pg MCHC 30.4 L (31.0-37.0) g/dL RDW 17.6 H (11.5-15.5) % Plt Count 144 L (150-450) k/uL Neutrophils % (Manual) 90 % Lymphocytes % (Manual) 7 % Monocytes % (Manual) 3 % Neutrophils # (Manual) 15.93 H (1.3-7.7) k/uL Lymphocytes # (Manual) 1.24 (1.0-4.8) k/uL Monocytes # (Manual) 0.53 (0-1.0) k/uL Nucleated RBCs 0 (0-0) /100 WBC Manual Slide Review Performed Polychromasia Present Hypochromasia Slight Anisocytosis Slight Macrocytosis Moderate PT (9.0-12.0) sec INR (<1.2) APTT (22.0-30.0) sec VBG pH (7.31-7.41) VBG pCO2 (37-51) mmHg VBG HCO3 (24-28) mmol/L Sodium 138 (137-145) mmol/L Potassium 3.5 (3.5-5.1) mmol/L Chloride 101 (98-107) mmol/L Carbon Dioxide 28 (22-30) mmol/L Anion Gap 9 mmol/L BUN 12 (7-17) mg/dL Creatinine 0.70 (0.52-1.04) mg/dL Est GFR (MDRD) Af Amer >60 (>60 ml/min/1.73 sqM) Est GFR (MDRD) Non-Af >60 (>60 ml/min/1.73 sqM) Glucose 155 H (74-99) mg/dL Plasma Lactic Acid Carlos (0.7-2.0) mmol/L Calcium 8.4 (8.4-10.2) mg/dL Magnesium 1.9 (1.6-2.3) mg/dL Total Bilirubin 2.0 H (0.2-1.3) mg/dL AST 72 H (14-36) U/L ALT 53 H (9-52) U/L Alkaline Phosphatase 364 H (38-126) U/L Ammonia (<30) umol/L Total Creatine Kinase 20 L (30-135) U/L CK-MB (CK-2) 0.6 (0.0-2.4) ng/mL CK-MB (CK-2) Rel Index 3.0 Troponin I <0.012 (0.000-0.034) ng/mL Total Protein 6.8 (6.3-8.2) g/dL Albumin 2.4 L (3.5-5.0) g/dL Urine Color Urine Appearance (Clear) Urine pH (5.0-8.0) Ur Specific [place] (1.001-1.035) Urine Protein (Negative) Urine Glucose (UA) (Negative) Urine Ketones (Negative) Urine Blood (Negative) Urine Nitrite (Negative) Urine Bilirubin (Negative) Urine Urobilinogen (<2.0) mg/dL Ur Leukocyte Esterase (Negative) 03/24/17 03/24/17 03/24/17 Range/Units 17:10 17:10 17:10 WBC (3.8-10.6) k/uL RBC (3.80-5.40) m/uL Hgb (11.4-16.0) gm/dL Hct (34.0-46.0) % MCV (80.0-100.0) fL MCH (25.0-35.0) pg MCHC (31.0-37.0) g/dL RDW (11.5-15.5) % Plt Count (150-450) k/uL Neutrophils % (Manual) % Lymphocytes % (Manual) % Monocytes % (Manual) % Neutrophils # (Manual) (1.3-7.7) k/uL Lymphocytes # (Manual) (1.0-4.8) k/uL Monocytes # (Manual) (0-1.0) k/uL Nucleated RBCs (0-0) /100 WBC Manual Slide Review Polychromasia Hypochromasia Anisocytosis Macrocytosis PT 13.0 H (9.0-12.0) sec INR 1.4 H (<1.2) APTT 25.7 (22.0-30.0) sec VBG pH 7.49 H (7.31-7.41) VBG pCO2 34 L (37-51) mmHg VBG HCO3 26 (24-28) mmol/L Sodium (137-145) mmol/L Potassium (3.5-5.1) mmol/L Chloride (98-107) mmol/L Carbon Dioxide (22-30) mmol/L Anion Gap mmol/L BUN (7-17) mg/dL Creatinine (0.52-1.04) mg/dL Est GFR (MDRD) Af Amer (>60 ml/min/1.73 sqM) Est GFR (MDRD) Non-Af (>60 ml/min/1.73 sqM) Glucose (74-99) mg/dL Plasma Lactic Acid [place] 2.1 H* (0.7-2.0) mmol/L Calcium (8.4-10.2) mg/dL Magnesium (1.6-2.3) mg/dL Total Bilirubin (0.2-1.3) mg/dL AST (14-36) U/L ALT (9-52) U/L Alkaline Phosphatase (38-126) U/L Ammonia (<30) umol/L Total Creatine Kinase (30-135) U/L CK-MB (CK-2) (0.0-2.4) ng/mL CK-MB (CK-2) Rel Index Troponin I (0.000-0.034) ng/mL Total Protein (6.3-8.2) g/dL Albumin (3.5-5.0) g/dL Urine Color Urine Appearance (Clear) Urine pH (5.0-8.0) Ur Specific [place] (1.001-1.035) Urine Protein (Negative) Urine Glucose (UA) (Negative) Urine Ketones (Negative) Urine Blood (Negative) Urine Nitrite (Negative) Urine Bilirubin (Negative) Urine Urobilinogen (<2.0) mg/dL Ur Leukocyte Esterase (Negative) 03/24/17 03/24/17 Range/Units 17:50 18:13 WBC (3.8-10.6) k/uL RBC (3.80-5.40) m/uL Hgb (11.4-16.0) gm/dL Hct (34.0-46.0) % MCV (80.0-100.0) fL MCH (25.0-35.0) pg MCHC (31.0-37.0) g/dL RDW (11.5-15.5) % Plt Count (150-450) k/uL Neutrophils % (Manual) % Lymphocytes % (Manual) % Monocytes % (Manual) % Neutrophils # (Manual) (1.3-7.7) k/uL Lymphocytes # (Manual) (1.0-4.8) k/uL Monocytes # (Manual) (0-1.0) k/uL Nucleated RBCs (0-0) /100 WBC Manual Slide Review Polychromasia Hypochromasia Anisocytosis Macrocytosis PT (9.0-12.0) sec INR (<1.2) APTT (22.0-30.0) sec VBG pH (7.31-7.41) VBG pCO2 (37-51) mmHg VBG HCO3 (24-28) mmol/L Sodium (137-145) mmol/L Potassium (3.5-5.1) mmol/L Chloride (98-107) mmol/L Carbon Dioxide (22-30) mmol/L Anion Gap mmol/L BUN (7-17) mg/dL Creatinine (0.52-1.04) mg/dL Est GFR (MDRD) Af Amer (>60 ml/min/1.73 sqM) Est GFR (MDRD) Non-Af (>60 ml/min/1.73 sqM) Glucose (74-99) mg/dL Plasma Lactic Acid [place] (0.7-2.0) mmol/L Calcium (8.4-10.2) mg/dL Magnesium (1.6-2.3) mg/dL Total Bilirubin (0.2-1.3) mg/dL AST (14-36) U/L ALT (9-52) U/L Alkaline Phosphatase (38-126) U/L Ammonia 13 (<30) umol/L Total Creatine Kinase (30-135) U/L CK-MB (CK-2) (0.0-2.4) ng/mL CK-MB (CK-2) Rel Index Troponin I (0.000-0.034) ng/mL Total Protein (6.3-8.2) g/dL Albumin (3.5-5.0) g/dL Urine Color Yellow Urine Appearance Clear (Clear) Urine pH 6.5 (5.0-8.0) Ur Specific [place] 1.014 (1.001-1.035) Urine Protein Trace H (Negative) Urine Glucose (UA) Negative (Negative) Urine Ketones Negative (Negative) Urine Blood Negative (Negative) Urine Nitrite Negative (Negative) Urine Bilirubin Negative (Negative) Urine Urobilinogen <2.0 (<2.0) mg/dL Ur Leukocyte Esterase Negative (Negative) Disposition Clinical Impression: Dehydration, Lung cancer, Weakness, Leukocytosis Disposition: ADMITTED IP TO THIS [facility] Condition: Stable Referrals: None,Stated [REFERRING] - 1-2 days Decision to Admit Reason: Admit from EC Decision Date: 03/24/17 Decision Time: 20:15
[2017-03-24 17:26] LABS: VBG PH 7.49 (7.31-7.41)
[2017-03-24] MEDS ORDERED: SODIUM CHLORIDE 0.9% 500 ML IV ONE (17:36)
[2017-03-24 17:37] LABS: Creatine Kinase 20 U/L (30-135)
[2017-03-24 17:40] LABS: ALT 53 U/L (9-52); AST 72 U/L (14-36); Albumin 2.4 g/dL (3.5-5.0); Alkaline Phosphatase 364 U/L (38-126); Anion Gap 9 mmol/L; Blood Urea Nitrogen 12 mg/dL (7-17); Calcium 8.4 mg/dL (8.4-10.2); Carbon Dioxide 28 mmol/L (22-30); Chloride 101 mmol/L (98-107); Glucose 155 mg/dL (74-99); Magnesium 1.9 mg/dL (1.6-2.3); Sodium 138 mmol/L (137-145); Total Protein 6.8 g/dL (6.3-8.2)
[2017-03-24 17:49] LABS: Creatine Kinase MB 0.6 ng/mL (0.0-2.4); Troponin I <0.012 ng/mL (0.000-0.034)
[2017-03-24 17:52] LABS: Potassium 3.5 mmol/L (3.5-5.1)
--- NOTE | 2017-03-24 17:56 | XR ---
EXAMINATION TYPE: XR chest 1V portable DATE OF EXAM: 03/24/2017 COMPARISON: March 14, 2017 HISTORY: Shortness of breath TECHNIQUE: Single frontal view of the chest is obtained. FINDINGS: There is an opacity at the mid right lung which is now more consolidated. This lesion juan ures 5.0 x 4.5 cm. No pneumothorax is identified. The bilateral costophrenic angles are blunted which could be due to small bilateral pleural effusions and/or atelectasis and/or airspace disease. Postop erative changes to the left shoulder joint are again noted. Mediport is again noted. IMPRESSION: Interval increased density of known right lung mass.
[2017-03-24 18:03] LABS: Anisocytosis Slight; HCT 42.4 % (34.0-46.0); HGB 12.9 gm/dL (11.4-16.0); Hypochromasia Slight; MCH 31.6 pg (25.0-35.0); MCHC 30.4 g/dL (31.0-37.0); MCV 103.7 fL (80.0-100.0); Macrocytosis Moderate; Mean Platelet Volume 9.2; Platelet Count 144 k/uL (150-450); RBC 4.09 m/uL (3.80-5.40); RDW 17.6 % (11.5-15.5); WBC 17.7 k/uL (3.8-10.6)
[2017-03-24 18:11] LABS: Appearance,Urine Clear (Clear); Bilirubin,Urine Negative (Negative); Blood,Urine Negative (Negative); Color,Urine Yellow; Glucose,Urine (UA) Negative (Negative); Ketones,Urine Negative (Negative); Leukocyte Esterase,Urine Negative (Negative); Nitrite,Urine Negative (Negative); PH, Urine 6.5 (5.0-8.0); Protein,Urine Trace (Negative); Specific Gravity,Urine 1.014 (1.001-1.035); Urobilinogen,Urine <2.0 mg/dL (<2.0)
[2017-03-24] MEDS: SODIUM CHLORIDE 0.9% 1,000 ML IV SCH (18:12)
[2017-03-24 18:18] LABS: INR 1.4 (<1.2); Partial Thromboplastin Time 25.7 sec (22.0-30.0)
[2017-03-24 18:24] LABS: Lymphocytes # (M) 1.24 k/uL (1.0-4.8); Monocytes # (M) 0.53 k/uL (0-1.0); Neutrophils # (M) 15.93 k/uL (1.3-7.7); Neutrophils % (M) 90 %; Nucleated Red Blood Cells 0 /100 WBC (0-0); Polychromasia Present; Total Cells Counted 100
--- NOTE | 2017-03-24 19:00 | CT ---
EXAMINATION TYPE: CT brain wo con DATE OF EXAM: 03/24/2017 COMPARISON: March 11, 2017. HISTORY: Unresponsive CT DLP: 901.40 mGycm Automated exposure control for dose reduction was used. FINDINGS: There is diffuse cortical atrophy which is unchanged. There is no acute hemorrhage or findings which would suggest major vessel territorial infarct. No mass mass effect or midline shift is identified. A ppearance the brain is unchanged. IMPRESSION: NO ACUTE ABNORMALITY, NO CHANGE IN APPEARANCE OF THE BRAIN.
[2017-03-24] MEDS ORDERED: NALOXONE 0.4 MG/ML 1 ML VIAL IV PRN (20:40)
[2017-03-24] MEDS ORDERED: ONDANSETRON 4 MG/2 ML VIAL IVP PRN (20:40)
[2017-03-24] MEDS ORDERED: HYDROmorphone 2 MG/ML 1 ML SYRINGE IVP PRN (20:40)
[2017-03-24] MEDS ORDERED: IBUPROFEN 400 MG TAB PO PRN (20:40)
[2017-03-24] MEDS ORDERED: SODIUM CHLORIDE 0.9% 1,000 ML IV ONE (22:44)
[2017-03-24] MEDS ORDERED: AMOXIC-POT CLAV 875-125MG 1 EACH TAB PO STA (22:56)
[2017-03-24] MEDS: LACTULOSE 20 GM/30 ML CUP PO SCH (23:38)
[2017-03-24] MEDS: METOPROLOL TARTRATE 25 MG TAB PO SCH (23:38)
[2017-03-25] MEDS: LACTULOSE 20 GM/30 ML CUP PO SCH ×2 (08:33→21:26)
[2017-03-25] MEDS: METOPROLOL TARTRATE 25 MG TAB PO SCH ×2 (08:35→21:26)
[2017-03-25] MEDS ORDERED: LACTULOSE 20 GM/30 ML CUP PO SCH (09:00)
[2017-03-25] MEDS ORDERED: METOPROLOL TARTRATE 25 MG TAB PO SCH (09:00)
--- NOTE | 2017-03-25 09:10 | P.CONS ---
History of Present Illness - Reason for Consult Consult date: 03/25/17 - History of Present Illness Ms. 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 She continued on follow up without incident until 10/12/16. Over the previous 6-7 weeks, pt c/o increasing pain in the right upper abdomen, right mid back, family noted decrease in appetite, progressive weakness and periods of confusion. Her LFTs were elevated, U/S 09/27/16 showed slightly heterogenous appearance of the liver with a 3.83.23.7 cm lesion in the right lobe, CT AP suggestive of cirrhosis and multiple liver masses, CT chest showed a 6.25 4.8 cm right infrahilar mass partially encasing the bronchus intermedius and proximal segmental right lower lobe bronchi, enlargement of a subcarinal node at 1.9 cm and borderline 9 mm superior mediastinal node, CT brain was negative. Liver biopsy on 10/13/16, no obvious malignancy was seen, bronch and biopsy done , positive for squamous cell carcinoma. Pt was started on Carboplatin and Gemzar, she had cycle 1 day 1, day 8 was held due to prolonged hospitalization for pneumonia, she had cycle 2 day 1 and 8 with 15% dose reduction, again hospitalized for pneumonia. She decided against any further chemo. The patient has had definite evidence of the liver insufficiency. Imaging for suspicious for metastatic disease, but biopsy was negative. It has been explained to the multiple times, the directive biopsy can actually be nondiagnostic. Repeat biopsies have been discussed, but after consideration the patient's family have refused that. I had also discussed immunotherapy, per the patient's family decided against that at this time too. According to her family, the patient has been overall stable since 12/26, with episodes of confusion that have responded to lactulose. However since about 02/25 she has been getting progressively worse. She was admitted to the hospital in late 02/25 with progressive weakness, falls in mental status changes. The CT scans around that time had shown overall stable appearance of the lung mass, but development of right upper lobe infiltrate suggestive of postobstructive pneumonia. At that time the patient also had a UTI. CT of the brain was negative. She was treated supportively, and then discharged. However she continued to do poorly, with increasing weakness, decreased appetite and oral intake, as well as more persistent confusion and difficulty in sleeping. She was seen in the office last week. Had a long discussion with family about her prognosis. They again reiterated that they did not want more chemotherapy, or to try immunotherapy. I also discussed doing a PET scan, and that would help them make a decision about further care. We decided to hold off on that at that time and get back to me later if they wanted it. The patient did receive hydration in the office. Her labs showed some increase in liver enzymes, with ammonia in the high normal range. During that visit, hospitalization was discussed, given the patient's poor status. The family decided against that at that time as he wanted to see how she would do with hydration. It appears that the patient has continued to decline, with worsening confusion, progressive weakness and poor appetite. She was therefore brought into the emergency room and admitted further management. Review of Systems Constitutional: Reports as per HPI, Reports fatigue, Reports poor appetite, Reports weakness Eyes: denies blurred vision, denies pain Ears: deny: decreased hearing, ear discharge, earache, tinnitus Ears, nose, mouth and throat: Denies headache, Denies sore throat Cardiovascular: Reports decreased exercise tolerance Respiratory: Reports as per HPI Gastrointestinal: Reports as per HPI Genitourinary: Reports mixed incontinence Menstruation: Reports postmenopausal Musculoskeletal: Reports muscle weakness, Denies myalgias Integumentary: Denies pruritus, Denies rash Neurological: Reports change in mentation, Reports confusion, Reports gait dysfunction Psychiatric: Reports change in sleep habits, Reports confusion, Reports insomnia Endocrine: Reports fatigue Hematologic/Lymphatic: Reports as per HPI Past Medical History Past Medical History: Cancer, COPD, GERD/Reflux, Hypertension, Liver Disease Additional Past Medical History / Comment(s): Recurrent R lung cancer first diagnosed 11/2013-had surgery (R lower lobectomy)-was told there was one spot too close to her heart to resect and then follow up 6 months later showed no cancer, then recently rediagnosed-had 2 chemo treatments and did not tolerate- became ill/pneumonias/thrombocytopenia/epistaxis/anemia. Other hx: O2 at 2L/ NC at HS, generalized chronic pain especially lately in L shoulder, vertigo, recent problem with bilateral eye vision decreasing and drainage from R eye, recent lower leg edema-was wearing leg wraps-currently has small pinpoint red rash bilateral lower legs. History of Any Multi-Drug Resistant Organisms: C-DIFF Year Discovered:: Stool MDRO Source:: 2016 Past Surgical History: Back Surgery, Bladder Surgery, Hysterectomy, Joint Replacement, Orthopedic Surgery Additional Past Surgical History / Comment(s): Bronchoscopy with bx, liver bx, R lung bx, cervical fusion, 3 lower back surgeies, R knee partial replacement then total replacement, L knee arthroscopy, bilateral shoulder rotator cuff repairs, L total shoulder, port a cath, EGD/colonoscopy. Past Anesthesia/Blood Transfusion Reactions: No Reported Reaction Past Psychological History: No Psychological Hx Reported Additional Psychological History / Comment(s): Pt currently resides with her Melissa pruett. Pt has [facility]. She has home O2 and wears 2L/NC at HS. Smoking Status: Former smoker Past Alcohol Use History: None Reported, Unable to Obtain Additional Past Alcohol Use History / Comment(s): Pt started smoking in 1949 and basically quit in 2013 but daughters states she will occasionally sneak a cigarette. Past Drug Use History: None Reported, Unable to Obtain - Past Family History Mother Family Medical History: Cancer Additional Family Medical History / Comment(s): Mother had brain cancer. Brother(s) Family Medical History: Cancer Additional Family Medical History / Comment(s): x2 Medications and Allergies Home Medications Medication Instructions Recorded Confirmed Type Lactulose 10 gm PO BID 11/23/16 03/24/17 History Ranitidine HCl [Zantac] 150 mg PO BID 11/23/16 03/24/17 History Budesonide [Pulmicort] 0.5 mg INHALATION RT-BID 12/12/16 03/24/17 History Cranberry Fruit Extract [Cranberry] 500 mg PO DAILY 12/12/16 03/24/17 History ALPRAZolam [Xanax] 1 mg PO TID PRN #20 12/18/16 03/24/17 Rx HYDROcodone/APAP 10-325MG [[place] 1 tab PO Q6HR PRN 02/01/17 03/24/17 History 10-325] Albuterol Nebulized [Ventolin 2.5 mg INHALATION Q6H PRN 03/11/17 03/24/17 History Nebulized] guaiFENesin [Mucinex] 600 mg PO DAILY PRN 03/11/17 03/24/17 History Amoxic-Pot Clav 875-125Mg 1 tab PO Q12HR #20 tablet 03/15/17 03/24/17 Rx [Augmentin 875-125] Folic Acid 1 mg PO DAILY@1200 #30 tab 03/15/17 03/24/17 Rx Metoprolol Tartrate [Lopressor] 25 mg PO BID #0 03/15/17 03/24/17 Rx Multivitamins, Thera [Multivitamin 1 each PO DAILY@1200 #30 tab 03/15/17 Rx (formulary)] Thiamine [Vitamin B-1] 100 mg PO DAILY@1200 #30 tab 03/15/17 03/24/17 Rx predniSONE See Taper PO DIRECTED 03/24/17 03/24/17 History Allergies Allergy/AdvReac Type Severity Reaction Status Date / Time adhesive tape Allergy Rash/Hives Verified 03/11/17 18:28 Iodinated Contrast- Oral and Allergy Anaphylaxis Verified 03/11/17 18:28 IV Dye Physical Exam Vitals: Vital Signs Temp Pulse Pulse Resp BP BP Pulse Ox 03/24/17 22:33 97.9 F 109 H 20 143/64 03/24/17 21:02 97.2 F L 83 18 163/73 99 03/24/17 20:10 83 18 98 03/24/17 19:10 110 H 20 156/74 97 03/24/17 18:08 111 H 22 146/66 96 03/24/17 17:31 102 H 03/24/17 17:22 101 H 03/24/17 17:04 98.3 F 67 28 H 155/90 84 L Intake and Output 03/24/17 03/25/17 03/25/17 22:59 06:59 14:59 Other: Voiding Method Bedside Commode Diaper Incontinent # Voids 1 1 Weight 63.503 kg - Constitutional General appearance: no acute distress - EENT Eyes: EOMI, PERRLA ENT: hearing grossly normal, normal oropharynx - Neck Thyroid: bilateral: normal size - Respiratory Respiratory: right: diminished (Right upper lobe) - Cardiovascular Rhythm: regular Heart sounds: normal: S1, S2 - Gastrointestinal General gastrointestinal: normal bowel sounds, soft - Integumentary Integumentary: normal - Neurologic Neurologic: CNII-XII intact - Musculoskeletal Musculoskeletal: generalized weakness, strength equal bilaterally - Psychiatric Patient is confused Results CBC & Chem 7: 03/24/17 17:10 03/24/17 17:10 Labs: Abnormal Lab Results - Last 24 Hours (Table) 03/24/17 03/24/17 03/24/17 Range/Units 17:10 17:10 17:10 WBC 17.7 H (3.8-10.6) k/uL MCV 103.7 H (80.0-100.0) fL MCHC 30.4 L (31.0-37.0) g/dL RDW 17.6 H (11.5-15.5) % Plt Count 144 L (150-450) k/uL Neutrophils # (Manual) 15.93 H (1.3-7.7) k/uL PT (9.0-12.0) sec INR (<1.2) VBG pH (7.31-7.41) VBG pCO2 (37-51) mmHg Glucose 155 H (74-99) mg/dL Plasma Lactic Acid Carlos (0.7-2.0) mmol/L Total Bilirubin 2.0 H (0.2-1.3) mg/dL AST 72 H (14-36) U/L ALT 53 H (9-52) U/L Alkaline Phosphatase 364 H (38-126) U/L Total Creatine Kinase 20 L (30-135) U/L Albumin 2.4 L (3.5-5.0) g/dL Urine Protein (Negative) 03/24/17 03/24/17 03/24/17 Range/Units 17:10 17:10 17:10 WBC (3.8-10.6) k/uL MCV (80.0-100.0) fL MCHC (31.0-37.0) g/dL RDW (11.5-15.5) % Plt Count (150-450) k/uL Neutrophils # (Manual) (1.3-7.7) k/uL PT 13.0 H (9.0-12.0) sec INR 1.4 H (<1.2) VBG pH 7.49 H (7.31-7.41) VBG pCO2 34 L (37-51) mmHg Glucose (74-99) mg/dL Plasma Lactic Acid Carlos 2.1 H* (0.7-2.0) mmol/L Total Bilirubin (0.2-1.3) mg/dL AST (14-36) U/L ALT (9-52) U/L Alkaline Phosphatase (38-126) U/L Total Creatine Kinase (30-135) U/L Albumin (3.5-5.0) g/dL Urine Protein (Negative) 03/24/17 03/24/17 Range/Units 17:50 21:45 WBC (3.8-10.6) k/uL MCV (80.0-100.0) fL MCHC (31.0-37.0) g/dL RDW (11.5-15.5) % Plt Count (150-450) k/uL Neutrophils # (Manual) (1.3-7.7) k/uL PT (9.0-12.0) sec INR (<1.2) VBG pH (7.31-7.41) VBG pCO2 (37-51) mmHg Glucose (74-99) mg/dL Plasma Lactic Acid Carlos 2.6 H* (0.7-2.0) mmol/L Total Bilirubin (0.2-1.3) mg/dL AST (14-36) U/L ALT (9-52) U/L Alkaline Phosphatase (38-126) U/L Total Creatine Kinase (30-135) U/L Albumin (3.5-5.0) g/dL Urine Protein Trace H (Negative) Chest x-ray: report reviewed CT Scan - head: report reviewed Assessment and Plan (1) Mental status change Narrative/Plan: The patient has had intermittent issues with this since the time of her diagnosis with recurrence. Previously this was responsive to lactulose. Since 02/25, this has been more persistent. CT of the brain 2 has been negative though these were noncontrast studies. The patient is very confused in the office last week, and continues to be about the same. Various etiologies are possible, including liver insufficiency, infection (urinalysis is still abnormal. The patient also has a right upper lobe consultation, likely postobstructive pneumonitis, that appears to be possibly progressive), as well as medication effect, that may be exacerbated by her liver insufficiency. A multifactorial etiology is more likely. The brain metastasis cannot be totally ruled out either, as the brain imaging was noncontrast previously. At this time recommend treating the patient supportively with hydration, as well as for possible infection. Liver enzymes do appear to be increasing. Continue lactulose and check ammonia. If the patient does not improve, consider repeat brain imaging with a contrast study if family is agreeable. Current Visit: Yes Status: Acute Code(s): R41.82 - ALTERED MENTAL STATUS, UNSPECIFIED SNOMED Code(s): 544709972 (2) Lung cancer Narrative/Plan: On the patient's history is as described above. Her tolerance of chemotherapy was very poor, and the family decided against further chemotherapy. I had discussed a trial of single agent chemotherapy as well as dose reduction, and immunotherapy as possible options. However given the patient's poor performance status, the family had decided against the same. The patient has continued to decline. Most recent imaging done within the last few weeks has not shown definite evidence of progression of the cancer, at least in the lung. It was discussed with the family, that there is persistent consolidation in the right upper lobe, due to which progressive endobronchial disease cannot be ruled out. During a recent hospital visit a value of serial imaging was discussed. I had indicated clear to them, that serial imaging would be beneficial if it would affect the patient's management. I therefore offered doing a PET scan, if it would help the family make decisions guarding further care, given the patient's decline. They had stated that they wanted to hold off on that for now. Given her persistently poor performance status, even if this is not from cancer progression directly caused, the patient is not felt to be a good candidate for further antineoplastic treatment at this time. I have discussed comfort care and hospice with them. They feel that they're not ready for hospice, but are considering palliative care. Current Visit: Yes Status: Acute Priority: High Code(s): C34.90 - MALIGNANT NEOPLASM OF UNSP PART OF UNSP BRONCHUS OR LUNG SNOMED Code(s): 642369468
[2017-03-25] MEDS: THIAMINE 100 MG TAB PO SCH (12:39)
[2017-03-25] MEDS: FOLIC ACID 1 MG TAB PO SCH (12:39)
[2017-03-25] MEDS: SODIUM CHLORIDE 0.9% 1,000 ML IV SCH ×3 (12:40→16:27)
[2017-03-25] MEDS: cefTRIAXone IN SWFI 1,000 MG/10 ML SYRINGE IVP SCH (13:07)
--- NOTE | 2017-03-25 13:29 | P.HPIM ---
History of Present Illness 71-year-old female with metastatic squamous cell carcinoma came in with complaints of generalized weakness tiredness confusion. Patient is unable to give any history although upon not repeated questioning patient is arousable and denied any UTI-like symptoms. Patient is quite tired and sleepy arousable. Patient's year did not show any significant abnormality chest x-ray showed worsening right lung mass. Patient was a valid by oncology patient the family and decide about further goals of care. Patient family is has not opted for immunotherapy for her lung cancer. Patient's ammonia is bit elevated patient appears to be clinically dehydrated is getting IV fluids at this time. Patient does have significant lactic acidosis with elevated white blood cell count without any fever or any other signs or symptoms of infection patient was started on empiric Rocephin may not be helpful much as patient does not appear to be septic rather she appears to be severely dehydrated from poor by mouth intake and and appeared to have severe cancer cachexia generalized weakness from cancer itself Review of Systems Unable to obtain Past Medical History Past Medical History: Cancer, COPD, GERD/Reflux, Hypertension, Liver Disease Additional Past Medical History / Comment(s): Recurrent R lung cancer first diagnosed 11/2013-had surgery (R lower lobectomy)-was told there was one spot too close to her heart to resect and then follow up 6 months later showed no cancer, then recently rediagnosed-had 2 chemo treatments and did not tolerate- became ill/pneumonias/thrombocytopenia/epistaxis/anemia. Other hx: O2 at 2L/ NC at HS, generalized chronic pain especially lately in L shoulder, vertigo, recent problem with bilateral eye vision decreasing and drainage from R eye, recent lower leg edema-was wearing leg wraps-currently has small pinpoint red rash bilateral lower legs. History of Any Multi-Drug Resistant Organisms: C-DIFF Date of last positivie culture/infection: Stool MDRO Source:: 2016 Past Surgical History: Back Surgery, Bladder Surgery, Hysterectomy, Joint Replacement, Orthopedic Surgery Additional Past Surgical History / Comment(s): Bronchoscopy with bx, liver bx, R lung bx, cervical fusion, 3 lower back surgeies, R knee partial replacement then total replacement, L knee arthroscopy, bilateral shoulder rotator cuff repairs, L total shoulder, port a cath, EGD/colonoscopy. Past Anesthesia/Blood Transfusion Reactions: No Reported Reaction Past Psychological History: No Psychological Hx Reported Additional Psychological History / Comment(s): Pt currently resides with her flynn Melissa. Pt has [facility]. She has home O2 and wears 2L/NC at HS. Smoking Status: Former smoker Past Alcohol Use History: None Reported, Unable to Obtain Additional Past Alcohol Use History / Comment(s): Pt started smoking in 1949 and basically quit in 2013 but daughters states she will occasionally sneak a cigarette. Past Drug Use History: None Reported, Unable to Obtain - Past Family History Mother Family Medical History: Cancer Additional Family Medical History / Comment(s): Mother had brain cancer. Brother(s) Family Medical History: Cancer Additional Family Medical History / Comment(s): x2 Medications and Allergies Home Medications Medication Instructions Recorded Confirmed Type Lactulose 10 gm PO BID 11/23/16 03/24/17 History Ranitidine HCl [Zantac] 150 mg PO BID 11/23/16 03/24/17 History Budesonide [Pulmicort] 0.5 mg INHALATION RT-BID 12/12/16 03/24/17 History Cranberry Fruit Extract [Cranberry] 500 mg PO DAILY 12/12/16 03/24/17 History ALPRAZolam [Xanax] 1 mg PO TID PRN #20 12/18/16 03/24/17 Rx HYDROcodone/APAP 10-325MG [[place] 1 tab PO Q6HR PRN 02/01/17 03/24/17 History 10-325] Albuterol Nebulized [Ventolin 2.5 mg INHALATION Q6H PRN 03/11/17 03/24/17 History Nebulized] guaiFENesin [Mucinex] 600 mg PO DAILY PRN 03/11/17 03/24/17 History Amoxic-Pot Clav 875-125Mg 1 tab PO Q12HR #20 tablet 03/15/17 03/24/17 Rx [Augmentin 875-125] Folic Acid 1 mg PO DAILY@1200 #30 tab 03/15/17 03/24/17 Rx Metoprolol Tartrate [Lopressor] 25 mg PO BID #0 03/15/17 03/24/17 Rx Multivitamins, Thera [Multivitamin 1 each PO DAILY@1200 #30 tab 03/15/17 Rx (formulary)] Thiamine [Vitamin B-1] 100 mg PO DAILY@1200 #30 tab 03/15/17 03/24/17 Rx predniSONE See Taper PO DIRECTED 03/24/17 03/24/17 History Allergies Allergy/AdvReac Type Severity Reaction Status Date / Time adhesive tape Allergy Rash/Hives Verified 03/11/17 18:28 Iodinated Contrast- Oral and Allergy Anaphylaxis Verified 03/11/17 18:28 IV Dye Physical Exam Vitals: Vital Signs Temp Pulse Pulse Resp BP BP Pulse Ox 03/25/17 07:00 98.0 F 104 H 20 166/76 98 03/24/17 22:33 97.9 F 109 H 20 143/64 03/24/17 21:02 97.2 F L 83 18 163/73 99 03/24/17 20:10 83 18 98 03/24/17 19:10 110 H 20 156/74 97 03/24/17 18:08 111 H 22 146/66 96 03/24/17 17:31 102 H 03/24/17 17:22 101 H 03/24/17 17:04 98.3 F 67 28 H 155/90 84 L Intake and Output 03/24/17 03/25/17 03/25/17 22:59 06:59 14:59 Other: Voiding Method Bedside Commode Bedside Commode Diaper Diaper Incontinent Incontinent # Voids 1 1 Weight 63.503 kg PHYSICAL EXAMINATION: GENERAL: Sleepy arousable unable to assess orientation be is to be quite tired responding to verbal stimuli HEENT: Pupils are round and equally reacting to light. EOMI. No scleral icterus. No conjunctival pallor. Normocephalic, atraumatic. No pharyngeal erythema. No thyromegaly. CARDIOVASCULAR: S1 and S2 present. No murmurs, rubs, or gallops. PULMONARY: Chest is clear to auscultation, no wheezing or crackles. ABDOMEN: Soft, nontender, nondistended, normoactive bowel sounds. No palpable organomegaly. MUSCULOSKELETAL: No joint swelling or deformity. EXTREMITIES: No cyanosis, clubbing, or pedal edema. NEUROLOGICAL: Unable to exam SKIN: No rashes. Results CBC & Chem 7: 03/24/17 17:10 03/24/17 17:10 Labs: Abnormal Lab Results - Last 24 Hours (Table) 03/24/17 03/24/17 03/24/17 Range/Units 17:10 17:10 17:10 WBC 17.7 H (3.8-10.6) k/uL MCV 103.7 H (80.0-100.0) fL MCHC 30.4 L (31.0-37.0) g/dL RDW 17.6 H (11.5-15.5) % Plt Count 144 L (150-450) k/uL Neutrophils # (Manual) 15.93 H (1.3-7.7) k/uL PT (9.0-12.0) sec INR (<1.2) VBG pH (7.31-7.41) VBG pCO2 (37-51) mmHg Glucose 155 H (74-99) mg/dL Plasma Lactic Acid Carlos (0.7-2.0) mmol/L Total Bilirubin 2.0 H (0.2-1.3) mg/dL AST 72 H (14-36) U/L ALT 53 H (9-52) U/L Alkaline Phosphatase 364 H (38-126) U/L Total Creatine Kinase 20 L (30-135) U/L Albumin 2.4 L (3.5-5.0) g/dL Urine Protein (Negative) 03/24/17 03/24/17 03/24/17 Range/Units 17:10 17:10 17:10 WBC (3.8-10.6) k/uL MCV (80.0-100.0) fL MCHC (31.0-37.0) g/dL RDW (11.5-15.5) % Plt Count (150-450) k/uL Neutrophils # (Manual) (1.3-7.7) k/uL PT 13.0 H (9.0-12.0) sec INR 1.4 H (<1.2) VBG pH 7.49 H (7.31-7.41) VBG pCO2 34 L (37-51) mmHg Glucose (74-99) mg/dL Plasma Lactic Acid Carlos 2.1 H* (0.7-2.0) mmol/L Total Bilirubin (0.2-1.3) mg/dL AST (14-36) U/L ALT (9-52) U/L Alkaline Phosphatase (38-126) U/L Total Creatine Kinase (30-135) U/L Albumin (3.5-5.0) g/dL Urine Protein (Negative) 03/24/17 03/24/17 03/25/17 Range/Units 17:50 21:45 09:32 WBC (3.8-10.6) k/uL MCV (80.0-100.0) fL MCHC (31.0-37.0) g/dL RDW (11.5-15.5) % Plt Count (150-450) k/uL Neutrophils # (Manual) (1.3-7.7) k/uL PT (9.0-12.0) sec INR (<1.2) VBG pH (7.31-7.41) VBG pCO2 (37-51) mmHg Glucose (74-99) mg/dL Plasma Lactic Acid Carlos 2.6 H* 3.0 H* (0.7-2.0) mmol/L Total Bilirubin (0.2-1.3) mg/dL AST (14-36) U/L ALT (9-52) U/L Alkaline Phosphatase (38-126) U/L Total Creatine Kinase (30-135) U/L Albumin (3.5-5.0) g/dL Urine Protein Trace H (Negative) Thrombosis Risk Factor Assmnt - Choose All That Apply Any of the Below Risk Factors Present?: No Each Risk Factor Represents 3 Points: Age 75 years or older Thrombosis Risk Factor Assessment Total Risk Factor Score: 3 Thrombosis Risk Factor Assessment Level: Moderate Risk Assessment and Plan Plan: -Altered mental status or metabolic encephalopathy secondary to severe intravascular depletion dehydration leading to lactic acidosis. No clear-cut evidence of any sepsis at this time. Patient is on IV fluids which will be continued. My suspicion for postobstructive pneumonia is low and his patient will be continued on Rocephin at this time. -Lactic acidosis due to decreased organ perfusion from severe dehydration intravascular depletion from cancer cachexia poor po intake -squamous cell lung cancer: Metastatic, oncology discuss the options of palliative care, hospice along with immunotherapy options. Patient is more appropriate for palliative care and hospice at this time. -Elevated liver enzymes secondary to metastatic lung cancer -COPD without any acute exacerbation -Chronic hypoxic respiratory failure -Tachycardia sinus tachycardia secondary to dehydration
[2017-03-25] MEDS ORDERED: SODIUM CHLORIDE 0.9% 500 ML IV ONE (17:27)
[2017-03-25] MEDS: HYDROcodone/APAP 15 ML SOLUTION PO PRN (17:33)
--- NOTE | 2017-03-25 18:01 | XR ---
EXAMINATION TYPE: XR knee complete bilateral DATE OF EXAM: 03/25/2017 CLINICAL HISTORY: Bilateral knee pain after a fall TECHNIQUE: Three views of both knees are obtained. COMPARISON: None. FINDINGS: There is no acute fracture/dislocation evident in either knee. The overlying soft tissue appears unremarkable. Mild atherosclerosis of the popliteal vasculature is seen bilaterally. Right ar throplasty maintains normal anatomic alignment. No periprosthetic lucency or hardware fracture. Mild medial compartment joint space narrowing on the left is noted with tibial plateau sclerosis. New supr apatellar joint effusion of either knee. IMPRESSION: 1. There is no acute fracture or dislocation in either knee. 2. No evidence of right hardware fracture or loosening. 3. 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
[2017-03-25] MEDS: ALPRAZolam 0.5 MG TAB PO PRN (21:26)
[2017-03-25] MEDS: FAMOTIDINE 20 MG/2 ML VIAL IV SCH (21:27)
[2017-03-26 05:53] LABS: Anisocytosis Slight; HCT 36.3 % (34.0-46.0); HGB 11.8 gm/dL (11.4-16.0); MCH 32.9 pg (25.0-35.0); MCHC 32.5 g/dL (31.0-37.0); MCV 101.3 fL (80.0-100.0); Macrocytosis Slight; Mean Platelet Volume 7.9; Platelet Count 147 k/uL (150-450); RBC 3.59 m/uL (3.80-5.40); RDW 16.6 % (11.5-15.5); WBC 15.9 k/uL (3.8-10.6)
[2017-03-26] MEDS: SODIUM CHLORIDE 0.9% 1,000 ML IV SCH ×3 (05:53→18:13)
[2017-03-26 06:19] LABS: ALT 45 U/L (9-52); AST 61 U/L (14-36); Albumin 2.1 g/dL (3.5-5.0); Alkaline Phosphatase 286 U/L (38-126); Anion Gap 6 mmol/L; Blood Urea Nitrogen 5 mg/dL (7-17); Calcium 7.7 mg/dL (8.4-10.2); Carbon Dioxide 25 mmol/L (22-30); Chloride 110 mmol/L (98-107); Glucose 91 mg/dL (74-99); Sodium 141 mmol/L (137-145)
[2017-03-26 06:35] LABS: Potassium 2.7 mmol/L (3.5-5.1)
[2017-03-26] MEDS ORDERED: Potassium Replacement Protocol 1 EACH MISC MISCELLANE PRN (08:32)
[2017-03-26] MEDS: cefTRIAXone IN SWFI 1,000 MG/10 ML SYRINGE IVP SCH (08:44)
[2017-03-26] MEDS: FAMOTIDINE 20 MG/2 ML VIAL IV SCH ×2 (08:45→21:31)
[2017-03-26] MEDS: METOPROLOL TARTRATE 25 MG TAB PO SCH ×2 (08:45→21:31)
[2017-03-26] MEDS: LACTULOSE 20 GM/30 ML CUP PO SCH ×2 (08:45→21:31)
[2017-03-26] MEDS: HYDROcodone/APAP 15 ML SOLUTION PO PRN ×3 (08:58→21:37)
[2017-03-26] MEDS ORDERED: cefTRIAXone IN SWFI 1,000 MG/10 ML SYRINGE IVP SCH (09:00)
[2017-03-26] MEDS ORDERED: POTASSIUM CHLORIDE 20 MEQ in WATER FOR INJECTION 1 100ML.BAG IVPB ONE ×3 (09:00→22:00)
[2017-03-26] MEDS: POTASSIUM CHLORIDE 10 MEQ in WATER FOR INJECTION 1 100ML.BAG IVPB SCH ×2 (10:28→11:47)
--- NOTE | 2017-03-26 12:01 | P.PN ---
Subjective Patient is admitted secondary to severe dehydration lactic acidosis lactic acidosis is not improving patient a BX on and off and the eye had extensive discussion with one of the daughters regarding her overall goals of care. Patient other daughter who is a poor of a runny had discussion with Dr. James ch regarding her overall goals of care. We'll have another discussion later in the day today regarding her oral goes up. The only appropriate management for the patient is hospice in my opinion to also get the opinion from oncologist Dr. Schaefer today Objective - Vital Signs Vital signs: Vital Signs Temp 98.9 F 03/26/17 07:00 Pulse 107 H 03/26/17 07:00 Resp 18 03/26/17 07:00 BP 161/80 03/26/17 07:00 Pulse Ox 93 L 03/26/17 07:00 Intake & Output 03/25/17 03/26/17 03/26/17 18:59 06:59 18:59 Other: Voiding Method Bedside Commode Bedside Commode Diaper Diaper Incontinent Incontinent # Voids 2 1 4 # Bowel Movements 2 2 - Exam PHYSICAL EXAMINATION: GENERAL: Sleepy arousable unable to assess orientation be is to be quite tired responding to verbal stimuli HEENT: Pupils are round and equally reacting to light. EOMI. No scleral icterus. No conjunctival pallor. Normocephalic, atraumatic. No pharyngeal erythema. No thyromegaly. CARDIOVASCULAR: S1 and S2 present. No murmurs, rubs, or gallops. PULMONARY: Chest is clear to auscultation, no wheezing or crackles. ABDOMEN: Soft, nontender, nondistended, normoactive bowel sounds. No palpable organomegaly. MUSCULOSKELETAL: No joint swelling or deformity. EXTREMITIES: No cyanosis, clubbing, or pedal edema. NEUROLOGICAL: Unable to exam SKIN: No rashes. - Labs CBC & Chem 7: 03/26/17 05:40 03/26/17 05:40 Labs: Abnormal Lab Results - Last 24 Hours (Table) 03/25/17 03/25/17 03/26/17 Range/Units 16:20 20:29 05:40 WBC (3.8-10.6) k/uL RBC (3.80-5.40) m/uL MCV (80.0-100.0) fL RDW (11.5-15.5) % Plt Count (150-450) k/uL Potassium 2.7 L* (3.5-5.1) mmol/L Chloride 110 H (98-107) mmol/L BUN 5 L (7-17) mg/dL Creatinine 0.50 L (0.52-1.04) mg/dL Plasma Lactic Acid Carlos 2.6 H* 3.5 H* (0.7-2.0) mmol/L Calcium 7.7 L (8.4-10.2) mg/dL Total Bilirubin 2.0 H (0.2-1.3) mg/dL AST 61 H (14-36) U/L Alkaline Phosphatase 286 H (38-126) U/L Total Protein 6.0 L (6.3-8.2) g/dL Albumin 2.1 L (3.5-5.0) g/dL 03/26/17 Range/Units 05:40 WBC 15.9 H (3.8-10.6) k/uL RBC 3.59 L (3.80-5.40) m/uL MCV 101.3 H (80.0-100.0) fL RDW 16.6 H (11.5-15.5) % Plt Count 147 L (150-450) k/uL Potassium (3.5-5.1) mmol/L Chloride (98-107) mmol/L BUN (7-17) mg/dL Creatinine (0.52-1.04) mg/dL Plasma Lactic Acid Carlos (0.7-2.0) mmol/L Calcium (8.4-10.2) mg/dL Total Bilirubin (0.2-1.3) mg/dL AST (14-36) U/L Alkaline Phosphatase (38-126) U/L Total Protein (6.3-8.2) g/dL Albumin (3.5-5.0) g/dL Microbiology - Last 24 Hours (Table) 03/24/17 17:10 Blood Culture - Preliminary Blood No Growth after 24 hours Assessment and Plan Plan: -Altered mental status or metabolic encephalopathy secondary to severe intravascular depletion dehydration leading to lactic acidosis. No clear-cut evidence of any sepsis at this time. Patient is on IV fluids which will be continued. My suspicion for postobstructive pneumonia is low and his patient will be continued on Rocephin at this time. Continues to have elevated the lactic acid potassium is low because of IV fluids which will be supplemented -Lactic acidosis due to decreased organ perfusion from severe dehydration intravascular depletion from cancer cachexia poor po intake -squamous cell lung cancer: Metastatic, oncology discuss the options of palliative care, hospice along with immunotherapy options. Patient is more appropriate for palliative care and hospice at this time. -Elevated liver enzymes secondary to metastatic lung cancer -COPD without any acute exacerbation -Chronic hypoxic respiratory failure -Tachycardia sinus tachycardia secondary to dehydration
[2017-03-26] MEDS: THIAMINE 100 MG TAB PO SCH (13:27)
[2017-03-26] MEDS: FOLIC ACID 1 MG TAB PO SCH (13:27)
--- NOTE | 2017-03-26 19:14 | CT ---
EXAMINATION TYPE: CT abdomen pelvis wo con DATE OF EXAM: 03/26/2017 COMPARISON: 10/09/2016 HISTORY: Left lower quadrant pain CT DLP: mGycm Automated exposure control for dose reduction was used. TECHNIQUE: Helical acquisition of images was performed from the lung bases through the pelvis. FINDINGS: There are bilateral pleural effusions with also some patchy basilar pulmonary infiltrates and atelect asis. Liver shows no focal defect. There are clips from cholecystectomy. Spleen appears normal. There is fl uid around the head and body of the pancreas. Bile ducts are not dilated. There is no evidence of an adrenal mass. There are multiple prominent veins around the spleen. Exam i s limited slightly by motion. There are multiple bilateral renal cortical cysts that measure up to 3.5 cm. There is no hydronephros is. There is no retroperitoneal adenopathy. There is mild ascites fluid in the pelvis. Bladder disten ds smoothly. I see no sign of a bowel obstruction. Abdominal aorta is atheromatous. There is osteopen ia. There is 30% anterior wedging of L1 vertebral body. IMPRESSION: THERE IS NEW L1 COMPRESSION FRACTURE COMPARED TO OLD EXAM. THERE IS NEW INFLAMMATORY CHANGE AROUND TH E HEAD AND BODY OF THE PANCREAS CONSISTENT WITH ACUTE PANCREATITIS. STABLE MULTIPLE RENAL CORTICAL CYSTS. SPLENIC VARICES ARE UNCHANGED AND CONSISTENT WITH PORTAL VENOUS HYPERTENSION. THERE ARE NEW PLEURAL E FFUSIONS AND BASILAR PULMONARY INFILTRATES COMPARED TO OLD EXAM.
[2017-03-26] MEDS: ALBUTEROL NEBULIZED 2.5 MG/3 ML INHALATION PRN (21:37)
[2017-03-27] MEDS: SODIUM CHLORIDE 0.9% 1,000 ML IV SCH ×2 (00:18→10:28)
[2017-03-27] MEDS ORDERED: POTASSIUM CHLORIDE 20 MEQ in WATER FOR INJECTION 1 100ML.BAG IVPB ONE ×2 (01:46→16:00)
[2017-03-27] MEDS: FAMOTIDINE 20 MG/2 ML VIAL IV SCH ×2 (07:27→21:47)
[2017-03-27] MEDS: LACTULOSE 20 GM/30 ML CUP PO SCH ×2 (07:27→21:46)
[2017-03-27] MEDS: cefTRIAXone IN SWFI 1,000 MG/10 ML SYRINGE IVP SCH (07:28)
[2017-03-27] MEDS: THIAMINE 100 MG TAB PO SCH (07:28)
[2017-03-27] MEDS: METOPROLOL TARTRATE 25 MG TAB PO SCH ×2 (07:28→21:47)
[2017-03-27] MEDS: HYDROcodone/APAP 15 ML SOLUTION PO PRN ×2 (07:30→21:47)
[2017-03-27] MEDS: ALBUTEROL NEBULIZED 2.5 MG/3 ML INHALATION PRN ×3 (09:38→21:11)
--- NOTE | 2017-03-27 10:38 | P.PN ---
Subjective Patient is admitted secondary to severe dehydration lactic acidosis lactic acidosis is not improving patient a BX on and off and the eye had extensive discussion with one of the daughters regarding her overall goals of care. Patient other daughter who is a poor of a runny had discussion with Dr. James ch regarding her overall goals of care. We'll have another discussion later in the day today regarding her oral goes up. The only appropriate management for the patient is hospice in my opinion to also get the opinion from oncologist Dr. Schaefer today 03/27/2017 Had excessive discussion with Dr. Schaefer regarding her cancer and metastatic status status although there is no biopsy evidence of metastatic disease unless otherwise proven patient does have metastatic disease to the liver. Patient is not doing well today patient does have some pulmonary edema CAT scan of the abdomen did show some pancreatitis of the tail of the pancreas for because of which are bothering her lipase patient will remain nothing by mouth I'm starting IV fluids because of some pulmonary edema bilateral pleural effusions and repeat the lactic acid. Patient is awake but unable is unable to provide me any answers looks lethargic and fatigued does appear to have some compression fracture we will obtain a PT and OT consultation for that. Objective - Vital Signs Vital signs: Vital Signs Temp 98.9 F 03/27/17 07:00 Pulse 74 03/27/17 09:48 Resp 18 03/27/17 09:38 BP 187/100 03/27/17 07:00 Pulse Ox 91 L 03/27/17 09:38 Intake & Output 03/26/17 03/27/17 03/27/17 18:59 06:59 18:59 Intake Total 737 Balance 737 Weight 63.503 kg Intake: IV 500 Sodium Chloride 0.9% 1, 500 000 ml @ 125 mls/hr IV . Q8H [facility] Rx#:[id number] Oral 237 Other: Voiding Method Bedside Commode Toilet Diaper Diaper Incontinent Incontinent # Voids 2 1 # Bowel Movements 1 - Exam PHYSICAL EXAMINATION: GENERAL: Awake did not provide me any history he is to be confused quite tired responding to verbal stimuli HEENT: Pupils are round and equally reacting to light. EOMI. No scleral icterus. No conjunctival pallor. Normocephalic, atraumatic. No pharyngeal erythema. No thyromegaly. CARDIOVASCULAR: S1 and S2 present. No murmurs, rubs, or gallops. PULMONARY: Chest is clear to auscultation, no wheezing or crackles. ABDOMEN: Soft, nontender, nondistended, normoactive bowel sounds. No palpable organomegaly. MUSCULOSKELETAL: No joint swelling or deformity. EXTREMITIES: No cyanosis, clubbing, or pedal edema. NEUROLOGICAL: Unable to exam SKIN: No rashes. - Labs CBC & Chem 7: 03/26/17 05:40 03/27/17 06:20 Labs: Abnormal Lab Results - Last 24 Hours (Table) 03/26/17 03/26/17 03/27/17 Range/Units 14:50 19:50 00:45 Potassium 2.8 L* 3.2 L 3.2 L (3.5-5.1) mmol/L Microbiology - Last 24 Hours (Table) 03/24/17 17:10 Blood Culture - Preliminary Blood No Growth after 48 hours Assessment and Plan Plan: -Altered mental status or metabolic encephalopathy secondary to severe intravascular depletion dehydration leading to lactic acidosis. No clear-cut evidence of any sepsis at this time. Patient is on IV fluids which will be continued. My suspicion for postobstructive pneumonia is low and his patient will be continued on Rocephin at this time. Lactic acid today -Lactic acidosis due to decreased organ perfusion from severe dehydration intravascular depletion from cancer cachexia poor po intake -squamous cell lung cancer: Metastatic, oncology discuss the options of palliative care, hospice along with immunotherapy options. Patient is more appropriate for palliative care and hospice at this time. -Elevated liver enzymes secondary to metastatic lung cancer -COPD without any acute exacerbation -Chronic hypoxic respiratory failure -Patient does have pulmonary edema appears to be noncardiogenic secondary to IV fluids. We'll watch her repeated the chest x-ray today IV fluids will be discontinued patient was getting IV fluids for lactic acidosis. -Possibly of pancreatitis will order lipase patient will remain nothing by mouth -Possible compression fracture. PT and OT eval
--- NOTE | 2017-03-27 10:52 | XR ---
EXAMINATION TYPE: XR chest 1V DATE OF EXAM: 03/27/2017 COMPARISON: 03/24/2017 HISTORY: Congestive heart failure. Known lung cancer with right lower lobectomy history of COPD. TECHNIQUE: Single frontal view of the chest is obtained. FINDINGS: Right-sided Mediport is again seen, similar in position. Right mediastinal surgical clips are noted from a prior lobectomy. Pulmonary hyperinflation and flattening of the diaphragms represent s the underlying known COPD. Right perihilar mass appears to radiographically have decreased in the i nterim in size measuring approximately 3.8 x 4.5 cm as opposed to the prior measurement of 5.0 x 4.5 cm on the exam of 03/24/2017, this is likely due to technique given the short interval. Trace small right pleural effusion and probable trace left pleural effusions are again seen. Postsurg ical changes of the left humerus is a reverse humeral arthroplasty and cervical spine fixation plate are noted. Cardiomediastinal silhouette is stable and upper limits of normal size. Pleural reaction o n the right lung apex is noted. IMPRESSION: 1. Trace bilateral pleural effusions, right suprahilar lung mass appearing radiographically smaller a lthough this is likely attributable to technique, postsurgical changes of the mediastinum and right l asha, and right apical pleural thickening unchanged from the prior. 2. No new focal consolidation.
[2017-03-27 11:14] LABS: Anisocytosis Slight; HCT 36.1 % (34.0-46.0); HGB 11.3 gm/dL (11.4-16.0); Hypochromasia Slight; MCH 32.6 pg (25.0-35.0); MCHC 31.3 g/dL (31.0-37.0); Macrocytosis Moderate; Platelet Count 168 k/uL (150-450); RBC 3.47 m/uL (3.80-5.40); RDW 16.8 % (11.5-15.5); WBC 18.1 k/uL (3.8-10.6)
[2017-03-27 11:26] LABS: Anion Gap 6 mmol/L; Blood Urea Nitrogen 7 mg/dL (7-17); Calcium 7.7 mg/dL (8.4-10.2); Carbon Dioxide 23 mmol/L (22-30); Chloride 116 mmol/L (98-107); Glucose 144 mg/dL (74-99); Lipase 184 U/L (23-300); Potassium 3.4 mmol/L (3.5-5.1); Sodium 145 mmol/L (137-145)
[2017-03-27] MEDS: FOLIC ACID 1 MG TAB PO SCH (14:35)
[2017-03-27] MEDS ORDERED: Potassium Replacement Protocol 1 EACH MISC MISCELLANE PRN (15:01)
[2017-03-27] MEDS ORDERED: Magnesium Replacement Protocol 1 EACH MISC MISCELLANE PRN (15:01)
[2017-03-27] MEDS: MAGNESIUM SULFATE-D5W PMX 1 GM in DEXTROSE/WATER 1 100ML.BAG IVPB SCH ×2 (20:41→21:47)
[2017-03-28] MEDS: ALPRAZolam 0.5 MG TAB PO PRN (02:12)
[2017-03-28 06:58] LABS: ALT 38 U/L (9-52); AST 47 U/L (14-36); Alkaline Phosphatase 251 U/L (38-126); Anion Gap 6 mmol/L; Blood Urea Nitrogen 7 mg/dL (7-17); Carbon Dioxide 24 mmol/L (22-30); Chloride 115 mmol/L (98-107); Glucose 96 mg/dL (74-99); Magnesium 2.1 mg/dL (1.6-2.3); Potassium 3.4 mmol/L (3.5-5.1); Sodium 145 mmol/L (137-145); Total Bilirubin 1.7 mg/dL (0.2-1.3); Total Protein 5.4 g/dL (6.3-8.2)
[2017-03-28] MEDS: LACTULOSE 20 GM/30 ML CUP PO SCH ×2 (07:24→20:01)
[2017-03-28] MEDS: FAMOTIDINE 20 MG/2 ML VIAL IV SCH ×2 (07:24→20:01)
[2017-03-28] MEDS: cefTRIAXone IN SWFI 1,000 MG/10 ML SYRINGE IVP SCH (07:26)
[2017-03-28] MEDS: METOPROLOL TARTRATE 25 MG TAB PO SCH ×2 (07:31→20:01)
[2017-03-28] MEDS: ALBUTEROL NEBULIZED 2.5 MG/3 ML INHALATION PRN ×3 (09:02→19:34)
[2017-03-28] MEDS: FOLIC ACID 1 MG TAB PO SCH (11:26)
[2017-03-28] MEDS: THIAMINE 100 MG TAB PO SCH (11:27)
[2017-03-28] MEDS: MORPHINE SULFATE 2 MG/ML SYRINGE IVP PRN (12:55)
[2017-03-28] MEDS: POTASSIUM CHLORIDE 10 MEQ in WATER FOR INJECTION 1 100ML.BAG IVPB SCH (22:47)
[2017-03-28] MEDS: PIPERACILLIN-TAZOBACTAM 3.375 GM in DEXTROSE/WATER 1 50ML.BAG IVPB SCH (23:08)
[2017-03-29] MEDS: POTASSIUM CHLORIDE 10 MEQ in WATER FOR INJECTION 1 100ML.BAG IVPB SCH (00:01)
[2017-03-29] MEDS: ALPRAZolam 0.5 MG TAB PO PRN (01:11)
--- NOTE | 2017-03-29 05:39 | CONS ---
CONSULTATION DATE OF SERVICE: 03/28/2017 REASON FOR CONSULTATION: Possible sepsis. 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 The patient recently noticed to have recurrence of her malignancy involving the right infrahilar mass partially encasing the main stem bronchus and part of the right lower lobe segment. The patient seemed to have a poor response to the chemotherapy that did require admission multiple times for pneumonia. She was recently admitted to [facility] from March 11 to March 15 when the patient was treated for possible pneumonia and the patient was discharged home on a 10 day course of oral Augmentin. The patient has now been brought back to the [facility] ER on the 24 of March with the chief complaints of mental status changes. Apparently the patient was noticed to be responsive to painful stimuli only. On arrival of the EMS the patient did have a chest x-ray, which did show opacity of the right midlung which shows a normal consolidated incision measures 5 x 4.5 cm. She did have a CT of the brain which shows no acute abnormality. A CT of the abdomen and pelvis was completed on the as well which did show compression fracture No inflammatory changes around the head and body of the pancreas consistent with acute pancreatitis. The patient does not have any fever during this admission. However, the patient did have a component of tachycardia mostly persistent and elevated lactic acid and elevated white count. The patient was started on the Rocephin. I was asked to see the patient for further recommendations of antibiotic therapy. Most of this information has been obtained from talking to the daughter and review of the chart as the patient herself is not a very good historian and was unable to provide any reliable history where she was noted to have significant congested cough during evaluation earlier this afternoon. REVIEW OF SYSTEMS: Could not be reliably obtained. The positive points have been mentioned in the HPI. PAST MEDICAL HISTORY: Significant for a metastatic squamous cell carcinoma of the lung, postobstructive pneumonia, gastroesophageal reflux disease, hypertension, C difficile colitis and liver disease. PAST SURGICAL HISTORY: Back surgery, hysterectomy, bronchoscopy with biopsy. Liver biopsy, cervical fusion, left shoulder PermCath placement, EGD, colonoscopy. SOCIAL HISTORY: Remote history of smoking. She quit smoking back however has been smoking since 1949. No drinking or drug use. FAMILY HISTORY: Mother with history of brain cancer. Brother also with a history of cancer. ALLERGIES: TO IODINATED CONTRAST AND ADHESIVE TAPE. MEDICATIONS: Include the patient is currently on [place], Ventolin, Xanax, Pepcid, Folic aid, Dilaudid, lactulose, Lopressor, morphine sulfate, Narcan, Zofran, and Rocephin 1 g daily. EXAMINATION: Blood pressure 156/74 with a pulse of 110, temperature of 97.4, she is 94% on 2 L nasal cannula. General description is an elderly female up in the chair in no distress. No tachypnea or accessory muscles for respiration use. HEENT: Shows slight pallor. No scleral icterus. Oral mucosa membranes dry. No pharyngeal erythema or thrush Neck trachea central. No thyromegaly. Lungs unlabored breathing. Coarse breath sounds bilaterally. No wheeze. Heart S1, S2. Regular rate and rhythm. No murmur ABDOMEN: Soft, no guarding or rigidity. No organomegaly. Extremities: Multiple skin bruises. No rash or mass palpable. Neurological: Patient is awake, alert, oriented x1. Mood and affect normal. LABS: Hemoglobin is 11.2, with a white count of 18.1. The BUN of 7, creatinine 0.60. Liver enzymes slightly elevated. Urine has been negative. Stool for C difficile was negative. DIAGNOSTIC IMPRESSION AND PLAN: Patient admitted to the hospital with mental status changes which is likely multifactorial in this patient who does have a component of leukocytosis as well lactic acid and tachycardia, which is multifactorial, the patient noticed to have more consolidated changes in her right midlung with a component of a postobstructive pneumonia not entirely excluded now with CT of abdomen and pelvis showing soft tissue evidence of possible pancreatitis. As the patient has been in and out of the hospital, we will need to cover for the resistant gram-negative pathogen. However, in view of the multiple comorbidities and end stage lung cancer, hospice or palliative care may be more appropriate for her at this point. PLAN: 1. Blood cultures will be repeated. 2. We will try to obtain sputum for Gram stain culture and sensitivity. 3. Discontinue the Rocephin. 4. Will start the patient on Zosyn 3.375 g q.8 hours. 5. Depending upon clinical response as well as cultures we will adjust her medications further if needed. Thank you for this consultation. Will follow this patient with you. MMODL / IJN: [id number] / MTDNusrat
[2017-03-29 05:45] LABS: Anion Gap 6 mmol/L; Blood Urea Nitrogen 7 mg/dL (7-17); Calcium 8.2 mg/dL (8.4-10.2); Carbon Dioxide 24 mmol/L (22-30); Chloride 114 mmol/L (98-107); Glucose 98 mg/dL (74-99); Magnesium 1.8 mg/dL (1.6-2.3); Potassium 3.4 mmol/L (3.5-5.1); Sodium 144 mmol/L (137-145)
[2017-03-29] MEDS: POTASSIUM CHLORIDE ER 20 MEQ TAB.ER PO SCH ×2 (06:24→07:08)
[2017-03-29] MEDS: ALBUTEROL NEBULIZED 2.5 MG/3 ML INHALATION PRN ×2 (07:27→20:38)
[2017-03-29] MEDS: FAMOTIDINE 20 MG/2 ML VIAL IV SCH (08:28)
[2017-03-29] MEDS: PIPERACILLIN-TAZOBACTAM 3.375 GM in DEXTROSE/WATER 1 50ML.BAG IVPB SCH ×3 (08:29→23:10)
[2017-03-29] MEDS: METOPROLOL TARTRATE 25 MG TAB PO SCH ×2 (08:29→20:39)
[2017-03-29] MEDS: LACTULOSE 20 GM/30 ML CUP PO SCH ×2 (08:30→20:27)
[2017-03-29] MEDS: FOLIC ACID 1 MG TAB PO SCH (12:00)
[2017-03-29] MEDS: THIAMINE 100 MG TAB PO SCH (12:00)
[2017-03-29] MEDS: HYDROcodone/APAP 15 ML SOLUTION PO PRN (14:18)
[2017-03-29 15:07] VITALS: BMI 24.4
--- NOTE | 2017-03-29 15:20 | P.PN ---
Subjective Progress Note Date: 03/28/17 Progress notel being dictated for Dr. Pinto. Interval history:Patient is admitted secondary to severe dehydration lactic acidosis lactic acidosis is not improving patient a BX on and off and the eye had extensive discussion with one of the daughters regarding her overall goals of care. Patient other daughter who is a poor of a runny had discussion with Dr. James ch regarding her overall goals of care. We'll have another discussion later in the day today regarding her oral goes up. The only appropriate management for the patient is hospice in my opinion to also get the opinion from oncologist Dr. Schaefer today 03/27/2017 Had excessive discussion with Dr. Schaefer regarding her cancer and metastatic status status although there is no biopsy evidence of metastatic disease unless otherwise proven patient does have metastatic disease to the liver. Patient is not doing well today patient does have some pulmonary edema CAT scan of the abdomen did show some pancreatitis of the tail of the pancreas for because of which are bothering her lipase patient will remain nothing by mouth I'm starting IV fluids because of some pulmonary edema bilateral pleural effusions and repeat the lactic acid. Patient is awake but unable is unable to provide me any answers looks lethargic and fatigued does appear to have some compression fracture we will obtain a PT and OT consultation for that. 03/28/2017 continues to have elevated lactic acid, mild tachycardia, leukocytosis. Afebrile. Infectious disease consulted. Evaluated by PT/OT, subacute rehab recommended at discharge. Family declines. Patient uncomfortable, moaning. Discussed pain management, hospice, palliative care, comfort care with daughter at bedside. Daughter states her sister Franck who is the medical DPOA, will take their mother home with hospice. Case management notified. Objective - Vital Signs Vital signs: Vital Signs Temp 97.2 F L 03/29/17 03:45 Pulse 98 03/29/17 07:38 Resp 20 03/29/17 03:45 BP 164/75 03/29/17 04:50 Pulse Ox 91 L 03/29/17 07:30 Intake & Output 03/28/17 03/29/17 03/29/17 18:59 06:59 18:59 Intake Total 100 525 0 Output Total 3 Balance 100 522 0 Weight 64.5 kg Intake: Intake, IV Titration 250 Amount Piperacillin-Tazobactam 3 50 .375 gm In Dextrose/Water 1 50ml.bag @ 12.5 mls/hr IVPB Q8HR [facility] Rx#: [id number] Potassium Chloride 10 meq 200 In Water For Injection 1 100ml.bag @ 100 mls/hr IVPB Q1H [facility] Rx#: [id number] Oral 100 275 0 Output: Urine/Stool Mix 3 Other: Voiding Method Toilet Toilet Diaper Diaper Incontinent Incontinent # Voids 1 - Exam GENERAL: Alert, confused, not conversing HEENT: Pupils are round and equally reacting to light. EOMI. No scleral icterus. No conjunctival pallor. Normocephalic, atraumatic. No pharyngeal erythema. No thyromegaly. CARDIOVASCULAR: S1 and S2 present. No murmurs, rubs, or gallops. PULMONARY: Rhonchorous, no wheezing or crackles. ABDOMEN: Soft, nontender, nondistended, normoactive bowel sounds. No palpable organomegaly. MUSCULOSKELETAL: No joint swelling or deformity. EXTREMITIES: No cyanosis, clubbing, or pedal edema. NEUROLOGICAL: Unable to exam SKIN: No rashes. - Labs CBC & Chem 7: 03/27/17 10:51 03/29/17 05:17 Labs: Abnormal Lab Results - Last 24 Hours (Table) 03/28/17 03/29/17 Range/Units 10:12 05:17 Potassium 3.4 L (3.5-5.1) mmol/L Chloride 114 H (98-107) mmol/L Plasma Lactic Acid Carlos 2.6 H* (0.7-2.0) mmol/L Calcium 8.2 L (8.4-10.2) mg/dL Microbiology - Last 24 Hours (Table) 03/24/17 17:10 Blood Culture - Preliminary Blood No Growth after 96 hours Assessment and Plan Assessment: -Altered mental status or metabolic encephalopathy secondary to severe intravascular depletion dehydration leading to lactic acidosis. No clear-cut evidence of any sepsis at this time. Patient is on IV fluids which will be continued. My suspicion for postobstructive pneumonia is low and his patient will be continued on Rocephin at this time. -Lactic acidosis due to decreased organ perfusion from severe dehydration intravascular depletion from cancer cachexia poor po intake -squamous cell lung cancer: Metastatic, oncology discuss the options of palliative care, hospice along with immunotherapy options. Patient is more appropriate for palliative care and hospice at this time. -Elevated liver enzymes secondary to metastatic lung cancer -COPD without any acute exacerbation -Chronic hypoxic respiratory failure -Patient does have pulmonary edema appears to be noncardiogenic secondary to IV fluids -Possibly of pancreatitis will order lipase patient will remain nothing by mouth -Possible compression fracture. PT and OT armandal, family declined subacute rehab Plan: Maintain IV fluids, antibiotics, close monitoring of lactic acid. Repeat Blood cultures ordered. Daughter at bedside requesting increasing pain medication, IV morphine added to med regime. Diet to be resumed. Infectious disease consult initiated with recommendations pending. Discussed with daughter poor prognosis, And multiple comorbidities, end-stage lung CA ,possible discharge home with hospice tomorrow if no improvement. Attempting to discuss further with Melissa DIAZ. The impression and plan of care has been dictated as directed. : I performed a history and examination of this patient, discussed the same with the dictator. I agree with the dictator's note ,documented as a scribe. Any additional findings or plans will be noted.
--- NOTE | 2017-03-29 15:29 | P.DS ---
Addendum entered and electronically signed by Jolly Alanis NP-C 03/29/17 17: 10: Original Note: Providers Date of admission: 03/24/17 20:46 Expected date of discharge: 03/29/17 Attending physician: Ayesha Pinto Consults: 03/24/17 20:41 Consult Physician Routine Consulting Provider: Hipolito Schaefer Consult Reason/Comments: lung cancer stage IV Do you want consulting provider notified?: Yes, Notify in am 03/28/17 09:35 Consult Physician Routine Consulting Provider: Pilar Arnold Consult Reason/Comments: ?post obstructive pneumon./sepsis Do you want consulting provider notified?: Yes Primary care physician: Eloisa Hinojosa Hospital Course: Final Diagnoses: Hospital course:Patient is admitted secondary to severe dehydration lactic acidosis lactic acidosis is not improving patient a BX on and off and the eye had extensive discussion with one of the daughters regarding her overall goals of care. Patient other daughter who is a poor of a runny had discussion with Dr. James ch regarding her overall goals of care. We'll have another discussion later in the day today regarding her oral goes up. The only appropriate management for the patient is hospice in my opinion to also get the opinion from oncologist Dr. Schaefer today 03/27/[address] Had [address] discussion with Dr. Schaefer regarding her cancer and metastatic status status although there is no biopsy evidence of metastatic disease unless otherwise proven patient does have metastatic disease to the liver. Patient is not doing well today patient does have some pulmonary edema CAT scan of the abdomen did show some pancreatitis of the tail of the pancreas for because of which are bothering her lipase patient will remain nothing by mouth I'm starting IV fluids because of some pulmonary edema bilateral pleural effusions and repeat the lactic acid. Patient is awake but unable is unable to provide me any answers looks lethargic and fatigued does appear to have some compression fracture we will obtain a PT and OT consultation for that. 03/28/2017 continues to have elevated lactic acid, mild tachycardia, leukocytosis. Afebrile. Infectious disease consulted. Evaluated by PT/OT, subacute rehab recommended at discharge. Family declines. Patient uncomfortable, moaning. Discussed pain management, hospice, palliative care, comfort care with daughter at bedside. Daughter states her sister Franck who is the medical DPOA, will take their mother home with hospice. Case management notified. 03/29/17 evaluated by infectious disease, recommendations noted. Condition unchanged. Family meeting with JOE, Melissa and another sister. Poor prognosis discussed, options offered. Melissa requesting to take her mother home with hospice today. Support given. Questions and concerns addressed. Case management notified. Patient is being discharged home with [facility] hospice. Prognosis poor. Physical Exam:VSS, CARDIOVASCULAR: S1 and S2 present. No murmurs, rubs, or gallops. ABDOMEN: Soft, nontender, normoactive bowel sounds. PULMONARY: Rhonchorous, no wheezing or crackles. NEUROLOGICAL: Unable to exam. The impression and plan of care has been dictated as directed. : I performed a history and examination of this patient, discussed the same with the dictator. I agree with the dictator's note ,documented as a scribe. Any additional findings or plans will be noted. Time taken: 35 minutes Patient Condition at Discharge: Stable Plan - Discharge Summary New Discharge Prescriptions: New LORazepam [Ativan] 0.5 mg SL Q8H PRN #20 tab PRN Reason: Anxiety MORPHINE ORAL RUEL CONC 20mg/mL [Roxanol Oral Soln Conc 20MG/ML] 10 mg SL Q4H PRN #30 ml PRN Reason: Pain Scopolamine 1.5MG/72Hr Patch [TransDerm Scop] 1 patch TRANSDERM Q72H #3 patch Continue Lactulose 10 gm PO BID Budesonide [Pulmicort] 0.5 mg INHALATION RT-BID HYDROcodone/APAP 10-325MG [[place] 10-325] 1 tab PO Q6HR PRN PRN Reason: Pain Albuterol Nebulized [Ventolin Nebulized] 2.5 mg INHALATION Q6H PRN PRN Reason: Shortness Of Breath Discontinued Ranitidine HCl [Zantac] 150 mg PO BID Cranberry Fruit Extract [Cranberry] 500 mg PO DAILY guaiFENesin [Mucinex] 600 mg PO DAILY PRN PRN Reason: Congestion Folic Acid 1 mg PO DAILY@1200 #30 tab Multivitamins, Thera [Multivitamin (formulary)] 1 each PO DAILY@1200 #30 tab Thiamine [Vitamin B-1] 100 mg PO DAILY@1200 #30 tab Metoprolol Tartrate [Lopressor] 25 mg PO BID #0 Amoxic-Pot Clav 875-125Mg [Augmentin 875-125] 1 tab PO Q12HR #20 tablet predniSONE See Taper PO DIRECTED Discharge Medication List Lactulose 10 gm PO BID 11/23/16 [History] Budesonide [Pulmicort] 0.5 mg INHALATION RT-BID 12/12/16 [History] HYDROcodone/APAP 10-325MG [[place] 10-325] 1 tab PO Q6HR PRN 02/01/17 [History] Albuterol Nebulized [Ventolin Nebulized] 2.5 mg INHALATION Q6H PRN 03/11/17 [ History] LORazepam [Ativan] 0.5 mg SL Q8H PRN #20 tab 03/29/17 [Rx] MORPHINE ORAL RUEL CONC 20mg/mL [Roxanol Oral Soln Conc 20MG/ML] 10 mg SL Q4H PRN #30 ml 03/29/17 [Rx] Scopolamine 1.5MG/72Hr Patch [TransDerm Scop] 1 patch TRANSDERM Q72H #3 patch [Rx] Follow up Appointment(s)/Referral(s): Claudia Rodriguez, PAC [REFERRING] - As Needed [facility] Visiting Nurse, [NON-STAFF] - 1 Week Activity/Diet/Wound Care/Special Instructions: Home with hospice Discharge Disposition: HOME WITH HOSPICE
--- NOTE | 2017-03-29 17:01 | PN ---
PROGRESS NOTE DATE OF SERVICE: 03/29/2017 REASON FOR FOLLOWUP: Possible post-obstructive pneumonia and pancreatitis. INTERVAL HISTORY: The patient is afebrile. Seems to be slightly weak and lethargic. She did have a congested cough but no nausea or vomiting has been noticed and no diarrhea. PHYSICAL EXAMINATION: Blood pressure 126/60 with a pulse of 111, temperature 97.3. She is 96% on 2 L nasal cannula. General description is an elderly female up in the bed in no distress. RESPIRATORY SYSTEM: Unlabored breathing. Coarse breath sounds bilaterally. HEART: S1, S2. Regular rate and rhythm. ABDOMEN: Soft. No tenderness. LABS: BUN of 7, creatinine 0.67. The lactic acid is down to 1.3. Blood cultures negative. Sputum not collected. DIAGNOSTIC IMPRESSION AND PLAN: Patient with elevated lactic acid in this patient admitted to hospital with mental status changes with metastatic squamous cell carcinoma, component of possible post- obstructive pneumonia and evidence of pancreatitis. Patient is currently covered with Zosyn and the lactic acid normalized. Blood culture has been negative. No sputum has been collected. The patient continues Zosyn. Await final decision by the family as far as possible comfort or hospice care. Continue with supportive care. MMODL / IJN: [id number] /
--- NOTE | 2017-03-29 17:20 | P.PN ---
Subjective Progress Note Date: 03/29/17 Progress notel being dictated for Dr. Pinto. Interval history:Patient is admitted secondary to severe dehydration lactic acidosis lactic acidosis is not improving patient a BX on and off and the eye had extensive discussion with one of the daughters regarding her overall goals of care. Patient other daughter who is a poor of a runny had discussion with Dr. James ch regarding her overall goals of care. We'll have another discussion later in the day today regarding her oral goes up. The only appropriate management for the patient is hospice in my opinion to also get the opinion from oncologist Dr. Schaefer today 03/27/[address] Had excessive discussion with Dr. Schaefer regarding her cancer and metastatic status status although there is no biopsy evidence of metastatic disease unless otherwise proven patient does have metastatic disease to the liver. Patient is not doing well today patient does have some pulmonary edema CAT scan of the abdomen did show some pancreatitis of the tail of the pancreas for because of which are bothering her lipase patient will remain nothing by mouth I'm starting IV fluids because of some pulmonary edema bilateral pleural effusions and repeat the lactic acid. Patient is awake but unable is unable to provide me any answers looks lethargic and fatigued does appear to have some compression fracture we will obtain a PT and OT consultation for that. 03/28/2017 continues to have elevated lactic acid, mild tachycardia, leukocytosis. Afebrile. Infectious disease consulted. Evaluated by PT/OT, subacute rehab recommended at discharge. Family declines. Patient uncomfortable, moaning. Discussed pain management, hospice, palliative care, comfort care with daughter at bedside. Daughter states her sister Franck who is the medical DPOA, will take their mother home with hospice. Case management notified. 03/29 2017 family meeting as discussed on discharge summary, patient has been made no code no CPR no intubation and is going home with hospice-[facility]. Daughter Franck initially wanted her mom discharged today, but now asking to take her home tomorrow. Case management assisting with DME arrangements. Objective - Vital Signs Vital signs: Vital Signs Temp 97.6 F 03/29/17 16:00 Pulse 107 H 03/29/17 16:00 Resp 20 03/29/17 16:00 BP 136/60 03/29/17 16:00 Pulse Ox 96 03/29/17 16:00 Intake & Output 03/28/17 03/29/1718 18:59 06:59 18:59 Intake Total 100 525 0 Output Total 3 Balance 100 522 0 Weight 64.5 kg 64.5 kg Intake: Intake, IV Titration 250 Amount Piperacillin-Tazobactam 3 50 .375 gm In Dextrose/Water 1 50ml.bag @ 12.5 mls/hr IVPB Q8HR MK Rx#: [id number] Potassium Chloride 10 meq 200 In Water For Injection 1 100ml.bag @ 100 mls/hr IVPB Q1H MK Rx#: [id number] Oral 100 275 0 Output: Urine/Stool Mix 3 Other: Voiding Method Toilet Toilet Toilet Diaper Diaper Bedside Commode Incontinent Incontinent Diaper Incontinent # Voids 1 2 # Bowel Movements 1 - Exam GENERAL: Alert, confused, not conversing HEENT: Pupils are round and equally reacting to light. EOMI. No scleral icterus. No conjunctival pallor. Normocephalic, atraumatic. No pharyngeal erythema. No thyromegaly. CARDIOVASCULAR: S1 and S2 present. No murmurs, rubs, or gallops. PULMONARY: Scattered coarse Rhonchi, throughout ABDOMEN: Soft, nontender, nondistended, normoactive bowel sounds. No palpable organomegaly. MUSCULOSKELETAL: No joint swelling or deformity. EXTREMITIES: No cyanosis, clubbing, or pedal edema. NEUROLOGICAL: Unable to exam SKIN: No rashes. - Labs CBC & Chem 7: 03/27/17 10:51 03/29/17 05:17 Labs: Abnormal Lab Results - Last 24 Hours (Table) 03/29/17 Range/Units 05:17 Potassium 3.4 L (3.5-5.1) mmol/L Chloride 114 H (98-107) mmol/L Calcium 8.2 L (8.4-10.2) mg/dL Microbiology - Last 24 Hours (Table) 03/24/17 17:10 Blood Culture - Preliminary Blood No Growth after 96 hours Assessment and Plan Assessment: -Altered mental status or metabolic encephalopathy secondary to severe intravascular depletion dehydration leading to lactic acidosis. No clear-cut evidence of any sepsis at this time. Patient is on IV fluids which will be continued. My suspicion for postobstructive pneumonia is low and his patient will be continued on Rocephin at this time. -Lactic acidosis due to decreased organ perfusion from severe dehydration intravascular depletion from cancer cachexia poor po intake -squamous cell lung cancer: Metastatic, oncology discussed the options of palliative care, hospice along with immunotherapy options. Patient is more appropriate for palliative care and hospice at this time.JOE Juárez requests home with hospice. -Elevated liver enzymes secondary to metastatic lung cancer -COPD without any acute exacerbation -Chronic hypoxic respiratory failure -Patient does have pulmonary edema appears to be noncardiogenic secondary to IV fluids -Possibly of pancreatitis -Possible compression fracture. PT and OT eval, family declined subacute rehab -No code, no CPR, no intubation Plan: Melissa DIAZ request patient be discharged home with hospice-[facility], initially scheduled for today,but asking to be deferred until tomorrow. [facility]/ window caser assisting with DME arrangements at home. Patient will be discharged home with hospice tomorrow. Patient is a no code, no CPR, no intubation at this time as per dsicussion with JOE. Maintain supportive care. Prognosis poor. The impression and plan of care has been dictated as directed. : I performed a history and examination of this patient, discussed the same with the dictator. I agree with the dictator's note ,documented as a scribe. Any additional findings or plans will be noted.
[2017-03-29] MEDS: FAMOTIDINE 20 MG TAB PO SCH (20:40)
[2017-03-30] MEDS: MORPHINE SULFATE 2 MG/ML SYRINGE IVP PRN ×2 (00:03→12:37)
--- NOTE | 2017-03-30 07:21 | P.DS ---
Providers Date of admission: 03/24/17 20:46 Attending physician: Ayesha Brown Consults: 03/24/17 20:41 Consult Physician Routine Consulting Provider: Hipolito Schaefer Consult Reason/Comments: lung cancer stage IV Do you want consulting provider notified?: Yes, Notify in am 03/28/17 09:35 Consult Physician Routine Consulting Provider: Pilar Arnold Consult Reason/Comments: ?post obstructive pneumon./sepsis Do you want consulting provider notified?: Yes Primary care physician: Eloisa Varghese [facility] Hospital Course: Patient has metastatic's, so lung cancer relapsed from 2013. Patient was made hospice please refer to documentation from my nurse practitioner from yesterday regarding her discharge clinical course Hospital course.. Patient Condition at Discharge: Stable Plan - Discharge Summary New Discharge Prescriptions: New LORazepam [Ativan] 0.5 mg SL Q8H PRN #20 tab PRN Reason: Anxiety MORPHINE ORAL RUEL CONC 20mg/mL [Roxanol Oral Soln Conc 20MG/ML] 10 mg SL Q4H PRN #30 ml PRN Reason: Pain Scopolamine 1.5MG/72Hr Patch [TransDerm Scop] 1 patch TRANSDERM Q72H #3 patch Continue Lactulose 10 gm PO BID Budesonide [Pulmicort] 0.5 mg INHALATION RT-BID HYDROcodone/APAP 10-325MG [[place] 10-325] 1 tab PO Q6HR PRN PRN Reason: Pain Albuterol Nebulized [Ventolin Nebulized] 2.5 mg INHALATION Q6H PRN PRN Reason: Shortness Of Breath Discontinued Ranitidine HCl [Zantac] 150 mg PO BID Cranberry Fruit Extract [Cranberry] 500 mg PO DAILY guaiFENesin [Mucinex] 600 mg PO DAILY PRN PRN Reason: Congestion Folic Acid 1 mg PO DAILY@1200 #30 tab Multivitamins, Thera [Multivitamin (formulary)] 1 each PO DAILY@1200 #30 tab Thiamine [Vitamin B-1] 100 mg PO DAILY@1200 #30 tab Metoprolol Tartrate [Lopressor] 25 mg PO BID #0 Amoxic-Pot Clav 875-125Mg [Augmentin 875-125] 1 tab PO Q12HR #20 tablet predniSONE See Taper PO DIRECTED Discharge Medication List Lactulose 10 gm PO BID 11/23/16 [History] Budesonide [Pulmicort] 0.5 mg INHALATION RT-BID 12/12/16 [History] HYDROcodone/APAP 10-325MG [[place] 10-325] 1 tab PO Q6HR PRN 02/01/17 [History] Albuterol Nebulized [Ventolin Nebulized] 2.5 mg INHALATION Q6H PRN 03/11/17 [ History] LORazepam [Ativan] 0.5 mg SL Q8H PRN #20 tab 03/29/17 [Rx] MORPHINE ORAL RUEL CONC 20mg/mL [Roxanol Oral Soln Conc 20MG/ML] 10 mg SL Q4H PRN #30 ml 03/29/17 [Rx] Scopolamine 1.5MG/72Hr Patch [TransDerm Scop] 1 patch TRANSDERM Q72H #3 patch [Rx] Follow up Appointment(s)/Referral(s): Claudia Rodriguez, LUIS [REFERRING] - As Needed [facility] Visiting Nurse, [NON-STAFF] - 1 Week Activity/Diet/Wound Care/Special Instructions: Home with hospice Discharge Disposition: HOME WITH HOSPICE
[2017-03-30 08:18] VITALS: BP 148/67; PULSE 125; RESP 18; TEMP 97.6
[2017-03-30] MEDS: FAMOTIDINE 20 MG TAB PO SCH ×2 (08:41→09:00)
[2017-03-30] MEDS: METOPROLOL TARTRATE 25 MG TAB PO SCH ×2 (08:41→09:00)
[2017-03-30] MEDS: HYDROcodone/APAP 15 ML SOLUTION PO PRN (08:51)
[2017-03-30] MEDS: LACTULOSE 20 GM/30 ML CUP PO SCH (09:00)
[2017-03-30] MEDS: PIPERACILLIN-TAZOBACTAM 3.375 GM in DEXTROSE/WATER 1 50ML.BAG IVPB SCH (09:52)
== END 2017-03-30 13:15 | disposition hospice, home (50) | DRG 640 ==
LOC: EC 17:02 → 5ONC 20:46 → 6SEL 03-28 14:01 → 5ONC 03-29 22:47
PROVIDERS: ADMIT Internal Medicine; ATTEND Internal Medicine
DX: E86.0 Dehydration (principal); G93.41 Metabolic encephalopathy; K85.90 Acute pancreatitis without necrosis or infection, unspecified; J90 Pleural effusion, not elsewhere classified; J96.11 Chronic respiratory failure with hypoxia; E87.2 Acidosis; C79.31 Secondary malignant neoplasm of brain; R64 Cachexia; C34.01 Malignant neoplasm of right main bronchus; C34.31 Malignant neoplasm of lower lobe, right bronchus or lung; M48.56XA Collapsed vertebra, not elsewhere classified, lumbar region, initial encounter for fracture; J70.4 Drug-induced interstitial lung disorders, unspecified; T50.995A Adverse effect of other drugs, medicaments and biological substances, initial encounter; I10 Essential (primary) hypertension; K21.9 Gastro-esophageal reflux disease without esophagitis; G89.29 Other chronic pain; R21 Rash and other nonspecific skin eruption; M25.512 Pain in left shoulder; J44.9 Chronic obstructive pulmonary disease, unspecified; R32 Unspecified urinary incontinence; K72.90 Hepatic failure, unspecified without coma; R00.0 Tachycardia, unspecified; Z90.710 Acquired absence of both cervix and uterus; Z79.899 Other long term (current) drug therapy; Z87.891 Personal history of nicotine dependence; Z66 Do not resuscitate; Z96.653 Presence of artificial knee joint, bilateral; Z98.1 Arthrodesis status; Z91.041 Radiographic dye allergy status; Z91.048 Other nonmedicinal substance allergy status; Y92.239 Unspecified place in hospital as the place of occurrence of the external cause
CPT/HCPCS: 36415; 70450; 71045; 74176; 80048; 80053; 81003; 82140; 82550; 82553; 82803; 83605; 83690; 83735; 84132; 84484; 85025; 85027; 85610; 85730; 87040; 87324; 93005; 94640; 94760; 96360; 96361; 99285